=== PATIENT | female | born 1965 | race Caucasian/White ===

== ENCOUNTER 2017-06-13 09:11 | Observation (INO) | payer OTHER ==
[2017-06-13] MEDS ORDERED: BABY ASPIRIN 81 MG CHEW PO ONE (09:22)
[2017-06-13] MEDS ORDERED: Pepcid 20 MG VIAL IV ONE ×2 (09:22→09:37)
[2017-06-13] MEDS ORDERED: NITRO-BID 2% UD PACKETS TOP ONE (09:22)
[2017-06-13] MEDS ORDERED: Ativan 2 MG/1 ML VIAL IV ONE (09:25)
[2017-06-13] MEDS ORDERED: Sodium Chloride 0.9% 1000 ML 1,000 ML IV SCH (09:30)
--- NOTE | 2017-06-13 09:31 | ERPHSYRPT ---
- History of Present Illness Time Seen by Provider: 06/13/17 09:12 Historian: patient Physician History: CC: chest pain Hx: 51 y/o patient of Dr Solis with hx of DM. She has chest pain off and on since yesterday associated with shortness of breath. She took 2 baby asa this AM. She has not used NTG today but used it yesterday with some brief relief. She reports prior heart attack in 2004 and had cath. She reports angina but does not regularly see a databases software consultant. She feels upset, anxious, and short of breath. She has stress with finances and child. Symptoms severe. Timing/Duration: yesterday (about 24 hours) Severity of Pain-Max: severe Severity of Pain-Current: severe Nitro Today/Relief: no nitro taken today Aspirin Treatment Today: 81 mg x 2, provided at home Allergies/Adverse Reactions: codeine [Codeine] Allergy (Mild, Verified 09/29/16 20:51) flu vaccine 2010- *RETIRED-02/04/13 [flu vaccine [id number] (3 yr +)] Allergy ( Mild, Verified 09/29/16 20:51) pneumococcal vaccine Allergy (Verified 09/29/16 20:51) trovafloxacin [Trovafloxacin] Allergy (Verified 09/29/16 20:51) acetaminophen [From [facility]] Adverse Reaction (Verified 09/29/16 20:51) duloxetine HCl [From Cymbalta] Adverse Reaction (Verified 09/29/16 20:51) hydrocodone bitartrate [From [facility]] Adverse Reaction (Verified 06/13/17 09:47) milnacipran HCl [From [facility]] Adverse Reaction (Verified 09/29/16 20:51) Home Medications: Metformin HCl 1,000 mg PO BID 12/30/15 [History] Citalopram Hydrobromide 20 mg* [ceLEXa 20 MG] 20 mg PO DAILY 08/13/16 [ History] Meloxicam 15 mg DAILY 08/13/16 [History] Metoprolol Tartrate 25 mg [Lopressor 25MG Tab] 25 mg PO BID 08/18/16 [ History] Gabapentin [Gralise] 1 each PO Q12H PRN PRN 06/13/17 [History] Hx Tetanus, Diphtheria Vaccination/Date Given: Yes (2013) Hx Influenza Vaccination/Date Given: No Hx Pneumococcal Vaccination/Date Given: No - Review of Systems Constitutional: Weakness, No Fever, No Chills Eyes: No Symptoms Ears, Nose, & Throat: No Symptoms Respiratory: Dyspnea, No Cough Cardiac: Chest Pain, Edema, No Syncope Abdominal/Gastrointestinal: No Nausea, No Vomiting, No Diarrhea Genitourinary Symptoms: No Dysuria Skin: No Rash Neurological: No Headache All Other Systems: Reviewed and Negative - Past Medical History Pertinent Past Medical History: Yes Neurological History: Migraines, Stroke ENT History: No Pertinent History Cardiac History: Myocardial Infarction ([place]), Hypertension, Other Respiratory History: Asthma Endocrine Medical History: Diabetes Type II Musculoskeletal History: Arthritis, Osteoarthritis, Osteoporosis, Fibromyalgia GI Medical History: Hernia, GERD Psycho-Social History: Depression, Anxiety Female Reproductive Disorders: Endometriosis - Past Surgical History Past Surgical History: Yes Neuro Surgical History: No Pertinent History Cardiac: Cardiac Catheterization Respiratory: No Pertinent History Gastrointestinal: Other, Cholecystectomy Genitourinary: No Pertinent History Musculoskeletal: Orthopedic Surgery Female Surgical History: Hysterectomy, Tubal Ligation, Section Other Surgical History: LEFT ANKLE SURGERY, skin tumor posterior right arm, left index finger - Social History Smoking Status: Former smoker How long have you smoked: 30 Exposure to second hand smoke: No Alcohol Use: None Drug Use: none Patient Lives Alone: No Significant Family History: heart disease, hypertension - Female History Hx Now: No - Nursing Vital Signs Nursing Vital Signs: Initial Vital Signs Temperature 98.5 F 06/13/17 09:17 Pulse Rate 70 06/13/17 09:17 Respiratory Rate 24 06/13/17 09:17 Blood Pressure 127/57 06/13/17 09:17 O2 Sat by Pulse Oximetry 99 06/13/17 09:17 Pain Scale Pain Intensity 8 - Physical Exam General Appearance: alert, obese, other (anxious and upset) Eye Exam: PERRL/EOMI Ears, Nose, Throat Exam: normal ENT inspection, moist mucous membranes Neck Exam: normal inspection, non-tender, supple Respiratory Exam: normal breath sounds Cardiovascular Exam: regular rate/rhythm, No murmur Gastrointestinal/Abdomen Exam: soft, No tenderness, No distention Extremity Exam: normal inspection, normal range of motion Neurologic Exam: alert, oriented x 3, cooperative, sensation nml, No motor deficits Skin Exam: warm, dry, No rash - Course Nursing assessment & vital signs reviewed: Yes EKG Interpreted by Me: RATE (62), Sinus Rhythm, NORMAL AXIS, NORMAL INTERVALS ( QTc 421), NORMAL QRS, NORMAL ST-T - Radiology Exams cxr X-ray Interpretation: Teleradiologist Report, Negative Ordered Tests: Active Orders 24 hr Category Date Time Status Line Lead STAT Care 06/13/17 09:22 Active EKG-ER Only STAT Care 06/13/17 09:22 Active EKG-ER Only STAT Care 06/13/17 10:43 Active IV Insertion STAT Care 06/13/17 09:22 Active Pulse Oximetry (ED) STAT Care 06/13/17 09:22 Active CHEST 1 VIEW (PORTABLE) Stat Exams 06/13/17 09:22 Completed CBC W DIFF Stat Lab 06/13/17 09:25 Completed CMP Stat Lab 06/13/17 09:25 Completed D-DIMER QUANTITATION Stat Lab 06/13/17 09:25 Completed NT PRO BNP Stat Lab 06/13/17 09:25 Completed PROTIME WITH INR Stat Lab 06/13/17 09:25 Completed PTT Stat Lab 06/13/17 09:25 Completed TROPONIN Q3H Lab 06/13/17 09:25 Completed TROPONIN Q3H Lab 06/13/17 12:30 Ordered TROPONIN Q3H Lab 06/13/17 15:30 Ordered TROPONIN Q3H Lab 06/13/17 18:30 Ordered TROPONIN Q3H Lab 06/13/17 21:30 Ordered VENOUS BLOOD GAS Stat Lab 06/13/17 09:25 Completed Medication Summary Generic Name Dose Route Start Last Admin Trade Name Freq PRN Reason Stop Dose Admin Sodium Chloride 1,000 mls @ 50 mls/hr 06/13/17 09:30 06/13/17 09:50 Sodium Chloride 0.9% 1000 Ml IV 07/13/17 09:29 50 mls/hr .Q20H SJ Administration Discontinued Medications Generic Name Dose Route Start Last Admin Trade Name Freq PRN Reason Stop Dose Admin Aspirin 162 mg 06/13/17 09:22 06/13/17 09:51 Baby Aspirin 81 Mg Chew PO 06/13/17 09:23 162 mg STAT ONE Administration Aspirin Confirm 06/13/17 09:36 Baby Aspirin 81 Mg Chew Administered 06/13/17 09:37 Dose 162 mg .ROUTE .STK-MED ONE Famotidine 20 mg 06/13/17 09:22 06/13/17 09:50 Pepcid 20 Mg Vial IV 06/13/17 09:23 20 mg STAT ONE Administration Famotidine Confirm 06/13/17 09:37 Pepcid 20 Mg Vial Administered 06/13/17 09:38 Dose 20 mg IV .STK-MED ONE Fentanyl Citrate 50 mcg 06/13/17 10:34 Sublimaze 100 Mcg/2 Ml IV 06/13/17 10:35 STAT ONE Lorazepam 1 mg 06/13/17 09:25 06/13/17 09:50 Ativan 2 Mg/1 Ml Vial IV 06/13/17 09:26 1 mg STAT ONE Administration Lorazepam Confirm 06/13/17 09:36 Ativan 2 Mg/1 Ml Vial Administered 06/13/17 09:37 Dose 2 mg .ROUTE .STK-MED ONE Nitroglycerin 1 gm 06/13/17 09:22 06/13/17 09:51 Nitro-Bid 2% Ud Packets TOP 06/13/17 09:23 1 gm STAT ONE Administration Nitroglycerin Confirm 06/13/17 09:36 Nitro-Bid 2% Ud Packets Administered 06/13/17 09:37 Dose 1 gm .ROUTE .STK-MED ONE Lab/Rad Data: Laboratory Result Diagrams 06/13/17 09:25 06/13/17 09:25 Laboratory Results 06/13/17 06/13/17 06/13/17 Range/Units 09:25 09:25 09:25 WBC (4.0-10.5) K/mm3 RBC (4.1-5.4) M/mm3 Hgb (12.0-16.0) gm/dl Hct (35-47) % MCV (78-100) fl MCH (26-32) pg MCHC (32-36) g/dl RDW (11.5-14.0) % Plt Count (150-450) K/mm3 MPV (6-9.5) fl Gran % (36.0-66.0) % Lymphocytes % (24.0-44.0) % Monocytes % (0.0-12.0) % Eosinophils % (0.00-5.0) % Basophils % (0.0-0.4) % Basophils # (0-0.4) INR 0.89 (0.8-3.0) APTT 30.8 (25.3-37.0) SECONDS D-Dimer 332 (0-500) ng/mL VBG pH 7.49 H (7.32-7.42) VBG pCO2 at Pat Temp 30 L (42-55) mm/Hg VBG pO2 at Pat Temp 28 (25-40) mm/Hg VBG HCO3 22.9 (22-28) meq/L VBG O2 Sat (Jeniffer) 68.6 L (95-100) VBG Base Excess 0.5 (-2.0-2.0) VBG Hemoglobin 14.2 VBG Carboxyhemoglobin 1.6 (0.0-6.9) % T HGB POC Potassium 4.1 (3.5-5.1) Sodium (136-145) mEq/L Potassium (3.5-5.1) mEq/L Chloride (98-107) mEq/L Carbon Dioxide (21-32) mEq/L Anion Gap (5-15) MEQ/L BUN (9-20) mg/dL Creatinine (0.55-1.30) mg/dl Estimated GFR ML/MIN Glucose (70-110) MG/DL Calcium (8.5-10.1) mg/dL Total Bilirubin (0.2-1.0) mg/dL AST (15-37) U/L ALT (12-78) U/L Alkaline Phosphatase (46-116) U/L Troponin I < 0.017 (0.000-0.056) ng/ml NT-Pro-B Natriuret Pep (0-125) pg/ml Serum Total Protein (6.4-8.2) gm/dL Albumin (3.4-5.0) g/dL 06/13/17 06/13/17 Range/Units 09:25 09:25 WBC 7.2 (4.0-10.5) K/mm3 RBC 4.48 (4.1-5.4) M/mm3 Hgb 13.3 (12.0-16.0) gm/dl Hct 40.4 (35-47) % MCV 90.2 (78-100) fl MCH 29.7 (26-32) pg MCHC 32.9 (32-36) g/dl RDW 14.6 H (11.5-14.0) % Plt Count 271 (150-450) K/mm3 MPV 9.0 (6-9.5) fl Gran % 53.6 (36.0-66.0) % Lymphocytes % 36.7 (24.0-44.0) % Monocytes % 7.9 (0.0-12.0) % Eosinophils % 1.4 (0.00-5.0) % Basophils % 0.4 (0.0-0.4) % Basophils # 0.03 (0-0.4) INR (0.8-3.0) APTT (25.3-37.0) SECONDS D-Dimer (0-500) ng/mL VBG pH (7.32-7.42) VBG pCO2 at Pat Temp (42-55) mm/Hg VBG pO2 at Pat Temp (25-40) mm/Hg VBG HCO3 (22-28) meq/L VBG O2 Sat (Jeniffer) (95-100) VBG Base Excess (-2.0-2.0) VBG Hemoglobin VBG Carboxyhemoglobin (0.0-6.9) % T HGB POC Potassium (3.5-5.1) Sodium 137 (136-145) mEq/L Potassium 4.2 (3.5-5.1) mEq/L Chloride 102 (98-107) mEq/L Carbon Dioxide 23.3 (21-32) mEq/L Anion Gap 15.4 H (5-15) MEQ/L BUN 25 H (9-20) mg/dL Creatinine 0.73 (0.55-1.30) mg/dl Estimated GFR > 60 ML/MIN Glucose 174 H (70-110) MG/DL Calcium 9.3 (8.5-10.1) mg/dL Total Bilirubin 0.80 (0.2-1.0) mg/dL AST 33 (15-37) U/L ALT 70 (12-78) U/L Alkaline Phosphatase 101 (46-116) U/L Troponin I (0.000-0.056) ng/ml NT-Pro-B Natriuret Pep 74 (0-125) pg/ml Serum Total Protein 7.5 (6.4-8.2) gm/dL Albumin 3.6 (3.4-5.0) g/dL - Progress Progress Note: 06/13/17 09:31 echo one year ago showed minimal valvular problem, normal EF and no wall motion abnl. 06/13/17 10:35 Pt stable. Pain better, then worse. Tests reassuring. She has seen [facility] at [facility] in the past. Advised chest pain observation. Paged Dr Mariee ( oc). 06/13/17 10:[address] Mariee and will place in tele observation for chest pain serial troponins. Discussed with .: Kodi Will see patient in: hospital (observation) Counseled pt/family regarding: lab results, diagnosis, need for follow-up, rad results - Departure Time of Disposition: 10:44 Departure Disposition: Observation (Tele) Clinical Impression: Chest pain, rule out acute myocardial infarction, Diabetes Condition: Fair Critical Care Time: No Referrals: JOHN SOLIS [Primary Care Provider] -
[2017-06-13] MEDS ORDERED: Ativan 2 MG/1 ML VIAL ONE (09:36)
[2017-06-13] MEDS ORDERED: NITRO-BID 2% UD PACKETS ONE (09:36)
[2017-06-13] MEDS ORDERED: BABY ASPIRIN 81 MG CHEW ONE (09:36)
[2017-06-13 09:38] LABS: BASOPHIL % 0.4 % (0.0-0.4); Eosinophil % 1.4 % (0.00-5.0); Granulocytes % 53.6 % (36.0-66.0); Lymphocytes % 36.7 % (24.0-44.0); Mean Cell Volume 90.2 fl (78-100); Mean Corpuscular Hemoglobin 29.7 pg (26-32); Monocytes % 7.9 % (0.0-12.0); Platelet Count 271 K/mm3 (150-450); Red Blood Count 4.48 M/mm3 (4.1-5.4); Red Cell Distribution Width 14.6 % (11.5-14.0); White Blood Count 7.2 K/mm3 (4.0-10.5)
[2017-06-13 09:43] LABS: VBG BASE EXCESS 0.5 (-2.0-2.0); VBG CARBOXYHEMOGLOBIN 1.6 % T HGB (0.0-6.9); VBG HCO3- 22.9 meq/L (22-28); VBG HEMOGLOBIN 14.2; VBG O2 SATURATION 68.6 (95-100); VBG POTASSIUM 4.1 (3.5-5.1); VBG pH 7.49 (7.32-7.42)
--- NOTE | 2017-06-13 09:45 | XRAY ---
Indication: Chest pain. Comparison: May 20, 2016. Portable chest again demonstrates normal heart and lungs. Bony thorax intact again with spinal degenerative changes. There is now a old left clavicle fracture.
[2017-06-13 09:59] LABS: INR 0.89 (0.8-3.0)
[2017-06-13 10:02] LABS: PTT 30.8 SECONDS (25.3-37.0)
[2017-06-13 10:15] LABS: ALBUMIN 3.6 g/dL (3.4-5.0); ALKALINE PHOSPHATASE 101 U/L (46-116); ANION GAP 15.4 MEQ/L (5-15); BLOOD UREA NITROGEN 25 mg/dL (9-20); CHLORIDE 102 mEq/L (98-107); Carbon Dioxide 23.3 mEq/L (21-32); Glucose 174 MG/DL (70-110); Potassium 4.2 mEq/L (3.5-5.1); SGOT/AST 33 U/L (15-37); SGPT/ALT 70 U/L (12-78); SODIUM 137 mEq/L (136-145); Total Protein 7.5 gm/dL (6.4-8.2)
[2017-06-13] MEDS ORDERED: SUBLIMAZE 100 MCG/2 ML IV ONE (10:34)
[2017-06-13] MEDS ORDERED: SUBLIMAZE 100 MCG/2 ML ONE (10:45)
[2017-06-13] MEDS ORDERED: MAALOX ES 30 ML UNIT DOSE PO PRN (11:48)
[2017-06-13] MEDS ORDERED: Zofran 4 MG/2 ML VIAL IV PRN (11:48)
[2017-06-13] MEDS ORDERED: Senokot-S Tablet PO PRN (11:48)
[2017-06-13] MEDS ORDERED: MILK OF MAGNESIA 30 ML PO PRN (11:48)
[2017-06-13] MEDS ORDERED: NovoLOG Insulin SQ PRN (11:48)
[2017-06-13] MEDS ORDERED: Sodium Chloride 0.9% 500 ML 500 ML IV SCH (11:48)
[2017-06-13] MEDS: TYLENOL 325 MG PO PRN ×2 (13:46→19:45)
[2017-06-13] MEDS: NITRO-BID 2% UD PACKETS TOP SCH ×2 (13:52→22:38)
[2017-06-13] MEDS ORDERED: ceLEXa 20 MG PO SCH (16:00)
[2017-06-13] MEDS ORDERED: ENOXAPARIN SODIUM SQ SCH (16:00)
[2017-06-13] MEDS ORDERED: Mobic 7.5 MG PO SCH (16:00)
[2017-06-13] MEDS: ULTRAM 50 MG PO PRN (16:23)
[2017-06-13] MEDS ORDERED: ECOTRIN 81 MG PO SCH (22:00)
[2017-06-13] MEDS ORDERED: Lopressor 25MG Tab PO SCH (22:00)
[2017-06-13] MEDS ORDERED: Zanaflex 4 MG PO SCH (22:00)
[2017-06-13] MEDS ORDERED: Pepcid 20 MG PO SCH (22:00)
[2017-06-13] MEDS: NEURONTIN 300 MG PO SCH (22:37)
[2017-06-14] MEDS: NEURONTIN 300 MG PO SCH (01:03)
[2017-06-14] MEDS: ULTRAM 50 MG PO PRN (04:24)
[2017-06-14] MEDS: NITRO-BID 2% UD PACKETS TOP SCH (06:13)
[2017-06-14 08:08] VITALS: BP 110/58; PULSE 66; O2SAT 96
--- NOTE | 2017-06-14 08:38 | PCM.DCORD ---
- Discharge Discharge Date: 06/14/17 Disposition: Home, Self-Care Condition: Good Prescriptions: Continue Metformin HCl 1,000 mg PO BID Meloxicam 15 mg DAILY Citalopram Hydrobromide 20 mg* [ceLEXa 20 MG] 20 mg PO DAILY Metoprolol Tartrate 25 mg [Lopressor 25MG Tab] 25 mg PO BID Aspirin EC 81 mg [Ecotrin 81 mg] 81 mg PO BID Gabapentin 900 mg PO HS Tizanidine HCl 4 mg [Zanaflex 4 MG] 1.5 tab PO HS Follow up with: JOHN RAMIREZ [Primary Care Provider] - Forms: Patient Portal Information
--- NOTE | 2017-06-14 09:35 | XRAY ---
Indication: Chest pain. Rule out aneurysm. Conventional CTA chest performed using 80 cc Isovue 370 contrast. Two-dimensional sagittal and coronal reformatted images obtained. Additional 3-dimensional reformatted images of the aorta performed using a separate workstation. Comparison: CT PE study August 16, 2015. Aorta is again normal in course and caliber without aneurysm/dissection. Heart is not enlarged and no pericardial effusion. No pathologic mediastinal/hilar lymphadenopathy. Examination of the lung parenchyma remains clear. Bony thorax intact with again minimal degenerative changes throughout the spine. Limited upper abdomen demonstrates stable fatty liver. Impression: 1. Negative for aortic aneurysm/dissection. 2. No new/acute cardiopulmonary abnormalities. 3. Stable fatty liver. CTDI 28.68
[2017-06-14] MEDS ORDERED: Ecotrin 325 MG PO SCH (10:00)
--- NOTE | 2017-06-14 14:49 | SSS ---
DISCHARGE DIAGNOSES: 1) CHEST PAIN. 2) DIABETES MELLITUS TYPE 2. 3) MORBID OBESITY. HISTORY OF PRESENT ILLNESS: The patient is a 51 year-old white female who presented herself to the emergency room having episodes of chest pain that were severe in nature rating up to a 10 on a scale 1 to 10. She reports it mostly in the left sternal border and radiating to the left arm and shoulder. The patient has carton inspector at [facility] that she sees in [facility]. She reports that he has done stress treadmill with Cardiolite which has been negative. She had negative echocardiogram and these have been done fairly recently. She also several years ago had a heart cath which was also negative. The patient was admitted from the emergency room for chest pain to rule out myocardial infarction. HOSPITAL COURSE: During the patient's hospital day she initially had pain which resolved over time. We did check also CT scan although the D-dimer was negative to rule out pulmonary embolism, dissecting aneurysm and these were negative as well. We did sedimentation rate for C-reactive protein which were normal. We had a lipid panel which showed her LDL cholesterol to be at 100, HDL at 40. C-reactive protein was 5.19. Troponins have all be less than 0.017. By the morning of 06/14/2017, the patient was feeling better other than complaints of headache and having ruled out for myocardial infarction the patient was felt to be ready for discharge home. She was discharged home with instructions to follow up with her carton inspector in the next week and to call her primary care doctor as well for further evaluation and management. She is to continue to take her usual home medications which include Pepcid 20 mg a day, Neurontin 300 mg tablets with 900 mg at night. She takes NovoLog insulin and Mobic 7.5 mg daily. Glucophage she is to hold due to contrast for two days. Lopressor 25 mg daily, Nitro-Bid packets, Zanaflex 4 mg, Ultram 50 mg every four hours PRN, aspirin 81 mg a day.
[2017-06-15] MEDS ORDERED: Glucophage 500 MG PO SCH (17:00)
== END 2017-06-14 10:10 | disposition home or self-care (01) ==
LOC: ED 09:11 → MED SURG 11:23
PROVIDERS: ADMIT Family Medicine; ATTEND Family Medicine
DX: R07.9 Chest pain, unspecified (principal); E11.9 Type 2 diabetes mellitus without complications; E66.01 Morbid (severe) obesity due to excess calories
CPT/HCPCS: 36000; 36415; 71010; 71275; 80053; 80061; 82805; 82962; 83721; 83880; 84484; 85025; 85379; 85610; 85652; 85730; 86140; 93005; 93041; 93268; 96360; 99284; G0378; J1650; J2060; J3010; A9270-GY

== ENCOUNTER 2017-07-08 07:57 | Emergency (ER) | payer OTHER ==
--- NOTE | 2017-07-08 08:43 | ERPHSYRPT ---
- History of Present Illness Time Seen by Provider: 07/08/17 08:33 Source: patient Exam Limitations: no limitations Patient Subjective Stated Complaint: pt here for sob for over a month now,cough nonproductive, fever low grade,left ear and throat pain at times Triage Nursing Assessment: pt alert, resp easy, shallow,no edema noted, skin w/ d pink ,chest clear Physician History: The patient is a morbidly obese 51-year-old female who presents with the complaint of shortness of breath for more than a month. She states she also has a dry cough. This shortness of breath is worsened by walking. She also has left ear pain for a month. She was seen in this ER and admitted to this hospital on June 13 for chest pain. I have scanned the hospital note. She states that she had shortness of breath a few days before being admitted for chest pain. While in this hospital, she had a CT scan to rule out PE. Her d- dimer was negative at the time. Her troponin levels were all negative. Her chest pain had resolved at discharge. She was to have seen her hot bread baker at [facility] within a week after discharge but did not see him because she knew it wasn't her heart that was an issue. She did see her local doctor for chest pain but "nothing was done". She has taken nebulizer treatments at home without improvement or with very little improvement. Her past medical history is significant for chest pain, hypertension, "touch of asthma", diabetes, and GERD. Timing/Duration: other (more than one month) Activities at Onset: none Severity of Dyspnea-Max: moderate Severity of Dyspnea-Current: moderate Possible Cause: occasional episodes Modifying Factors: Improves With: exertion Associated Symptoms: cough, dizziness Allergies/Adverse Reactions: codeine [Codeine] Allergy (Mild, Verified 07/08/17 08:12) flu vaccine 2010- *RETIRED-02/04/13 [flu vaccine 0856-6009 (3 yr +)] Allergy ( Mild, Verified 07/08/17 08:12) pneumococcal vaccine Allergy (Verified 07/08/17 08:12) trovafloxacin [Trovafloxacin] Allergy (Verified 07/08/17 08:12) acetaminophen [From [place]] Adverse Reaction (Verified 07/08/17 08:12) duloxetine HCl [From [place]ymb[place]] Adverse Reaction (Verified 07/08/17 08:12) hydrocodone bitartrate [From [place]] Adverse Reaction (Verified 07/08/17 08:12) milnacipran HCl [From [place]] Adverse Reaction (Verified 07/08/17 08:12) Home Medications: Metformin HCl 1,000 mg PO BID 12/30/15 [History] Citalopram Hydrobromide 20 mg* [ceLEXa 20 MG] 20 mg PO DAILY 08/13/16 [ History] Meloxicam 15 mg DAILY 08/13/16 [History] Metoprolol Tartrate 25 mg [Lopressor 25MG Tab] 25 mg PO BID 08/18/16 [ History] Aspirin EC 81 mg [Ecotrin 81 mg] 81 mg PO BID 06/13/17 [History] Gabapentin 900 mg PO HS 06/13/17 [History] Tizanidine HCl 4 mg [Zanaflex 4 MG] 1.5 tab PO HS 06/13/17 [History] Albuterol 2.5 mg/3 ml Neb [Proventil 2.5 mg/3 ml Neb] 2.5 mg QID 07/08/17 [History] Hx Tetanus, Diphtheria Vaccination/Date Given: Yes (2013) Hx Influenza Vaccination/Date Given: No Hx Pneumococcal Vaccination/Date Given: No Immunizations Up to Date: Yes - Review of Systems Constitutional: No Fever, No Chills Eyes: No Symptoms Ears, Nose, & Throat: Ear Pain Respiratory: Cough, Dyspnea on Exertion ([place]) Cardiac: No Chest Pain, No Edema, No Syncope Abdominal/Gastrointestinal: No Abdominal Pain, No Nausea, No Vomiting, No Diarrhea Genitourinary Symptoms: No Dysuria Musculoskeletal: No Back Pain, No Neck Pain Skin: No Rash Neurological: No Dizziness, No Focal Weakness, No Sensory Changes Psychological: No Symptoms Endocrine: No Symptoms Hematologic/Lymphatic: No Symptoms Immunological/Allergic: No Symptoms All Other Systems: Reviewed and Negative - Past Medical History Pertinent Past Medical History: Yes Neurological History: Migraines, Stroke ENT History: No Pertinent History Cardiac History: Myocardial Infarction (PR), Hypertension, Other Respiratory History: Asthma Endocrine Medical History: Diabetes Type II Musculoskeletal History: Arthritis, Osteoarthritis, Osteoporosis, Fibromyalgia GI Medical History: Hernia, GERD Psycho-Social History: Depression, Anxiety Female Reproductive Disorders: Endometriosis - Past Surgical History Past Surgical History: Yes Neuro Surgical History: No Pertinent History Cardiac: Cardiac Catheterization Respiratory: No Pertinent History Gastrointestinal: Other, Cholecystectomy Genitourinary: No Pertinent History Musculoskeletal: Orthopedic Surgery Female Surgical History: Hysterectomy, Tubal Ligation, Section Other Surgical History: LEFT ANKLE SURGERY, skin tumor posterior right arm, left index finger - Social History Smoking Status: Former smoker How long have you smoked: 30 Exposure to second hand smoke: No Alcohol Use: None Drug Use: none Patient Lives Alone: No Significant Family History: heart disease, hypertension - Female History Hx Last Menstrual Period: hyster Hx Now: No - Nursing Vital Signs Nursing Vital Signs: Initial Vital Signs Temperature 97.7 F 07/08/17 08:02 Pulse Rate 69 07/08/17 08:02 Respiratory Rate 28 H 07/08/17 08:02 Blood Pressure 187/116 07/08/17 08:02 O2 Sat by Pulse Oximetry 99 07/08/17 08:02 Pain Scale Pain Intensity 0 - Physical Exam General Appearance: no apparent distress, alert Eye Exam: PERRL/EOMI Ears, Nose, Throat Exam: abnormal TM (L) (tenderness of left ear canal, TM dull) Neck Exam: tenderness lateral (left) Respiratory Exam: normal breath sounds, No wheezing Cardiovascular/Chest Exam: normal heart sounds, regular rate/rhythm Abdominal/Gastrointestinal Exam: other (obese) Rectal Exam: not done Extremity Exam: non-tender, normal range of motion, normal inspection, no calf tenderness, no pedal edema, No pedal edema Neurologic Exam: alert, oriented x 3, cooperative, injection molding machine setter II-XII nml as tested, sensation nml, No motor deficits Skin Exam: normal color, warm, No dry SpO2 Interpretation: normal SpO2: 97 - Radiology Exams Chest X-ray Interpretation: Other (New interstial edema per Dr Rodriguez) - CT Exams Chest CT Interpretation: Other (No PE. New tiny bilateral pleural effusion and minimal interstial edema per Dr Ferrara.) Ordered Tests: Active Orders 24 hr Category Date Time Status Aircraft Time Clerk STAT Care 07/08/17 10:22 Active IV Insertion STAT Care 07/08/17 08:44 Active Oxygen-ED Only NASAL CANNULA 2 lpm Care 07/08/17 10:21 Active Pulse Oximetry (ED) STAT Care 07/08/17 08:44 Active CHEST 2 VIEWS (PA AND LAT) Stat Exams 07/08/17 08:45 Completed CHEST WITH CONTRAST [CT] Stat Exams 07/08/17 10:18 Completed CBC W DIFF Stat Lab 07/08/17 08:45 Completed CMP Stat Lab 07/08/17 08:45 Completed D-DIMER QUANTITATION Stat Lab 07/08/17 08:45 Completed NT PRO BNP Stat Lab 07/08/17 08:45 Completed TROPONIN Q3H Lab 07/08/17 08:45 Completed TROPONIN Q3H Lab 07/08/17 11:47 Completed TROPONIN Q3H Lab 07/08/17 14:45 Ordered TROPONIN Q3H Lab 07/08/17 17:45 Ordered TROPONIN Q3H Lab 07/08/17 20:45 Ordered Respiratory Nebulizer STAT RT 07/08/17 08:47 Completed Medication Summary Discontinued Medications Generic Name Dose Route Start Last Admin Trade Name Freq PRN Reason Stop Dose Admin Albuterol/Ipratropium 3 ml 07/08/17 08:44 07/08/17 09:08 Duoneb 0.5-3 Mg/3 Ml Neb IH 07/08/17 08:45 3 ml STAT ONE Administration Albuterol/Ipratropium Confirm 07/08/17 09:05 Duoneb 0.5-3 Mg/3 Ml Neb Administered 07/08/17 09:06 Dose 3 ml IH .STK-MED ONE Furosemide 40 mg 07/08/17 11:51 07/08/17 12:07 Lasix 40 Mg/4 Ml IV 07/08/17 11:52 40 mg STAT ONE Administration Furosemide Confirm 07/08/17 12:06 Lasix 40 Mg/4 Ml Administered 07/08/17 12:07 Dose 40 mg .ROUTE .STK-MED ONE Methylprednisolone Sodium Succinate 125 mg 07/08/17 08:44 07/08/17 09:00 Solu-Medrol 125 Mg IV 07/08/17 08:45 125 mg STAT ONE Administration Methylprednisolone Sodium Succinate Confirm 07/08/17 08:59 Solu-Medrol 125 Mg Administered 07/08/17 09:00 Dose 125 mg .ROUTE .STK-MED ONE Lab/Rad Data: Laboratory Result Diagrams 07/08/17 08:45 07/08/17 08:45 Laboratory Results 07/08/17 07/08/1707/08/17 Range/Units 11:47 08:45 08:45 WBC (4.0-10.5) K/mm3 RBC (4.1-5.4) M/mm3 Hgb (12.0-16.0) gm/dl Hct (35-47) % MCV (78-100) fl MCH (26-32) pg MCHC (32-36) g/dl RDW (11.5-14.0) % Plt Count (150-450) K/mm3 MPV (6-9.5) fl Gran % (36.0-66.0) % Lymphocytes % (24.0-44.0) % Monocytes % (0.0-12.0) % Eosinophils % (0.00-5.0) % Basophils % (0.0-0.4) % Basophils # (0-0.4) D-Dimer (0-500) ng/mL Sodium 142 (136-145) mEq/L Potassium 4.4 (3.5-5.1) mEq/L Chloride 106 (98-107) mEq/L Carbon Dioxide 25.1 (21-32) mEq/L Anion Gap 15.0 (5-15) MEQ/L BUN 17 (9-20) mg/dL Creatinine 0.54 L (0.55-1.30) mg/dl Estimated GFR > 60 ML/MIN Glucose 131 H (70-110) MG/DL Calcium 9.1 (8.5-10.1) mg/dL Total Bilirubin 0.80 (0.2-1.0) mg/dL AST 21 (15-37) U/L ALT 62 (12-78) U/L Alkaline Phosphatase 98 (46-116) U/L Troponin I < 0.017 < 0.017 (0.000-0.056) ng/ml NT-Pro-B Natriuret Pep (0-125) pg/ml Serum Total Protein 7.4 (6.4-8.2) gm/dL Albumin 3.2 L (3.4-5.0) g/dL 07/08/17 07/08/17 07/08/17 Range/Units 08:45 08:45 08:45 WBC 8.2 (4.0-10.5) K/mm3 RBC 3.99 L (4.1-5.4) M/mm3 Hgb 12.0 (12.0-16.0) gm/dl Hct 37.0 (35-47) % MCV 92.7 (78-100) fl MCH 30.0 (26-32) pg MCHC 32.4 (32-36) g/dl RDW 14.9 H (11.5-14.0) % Plt Count 269 (150-450) K/mm3 MPV 9.5 (6-9.5) fl Gran % 63.6 (36.0-66.0) % Lymphocytes % 27.2 (24.0-44.0) % Monocytes % 7.2 (0.0-12.0) % Eosinophils % 1.6 (0.00-5.0) % Basophils % 0.4 (0.0-0.4) % Basophils # 0.03 (0-0.4) D-Dimer 1156 H* (0-500) ng/mL Sodium (136-145) mEq/L Potassium (3.5-5.1) mEq/L Chloride (98-107) mEq/L Carbon Dioxide (21-32) mEq/L Anion Gap (5-15) MEQ/L BUN (9-20) mg/dL Creatinine (0.55-1.30) mg/dl Estimated GFR ML/MIN Glucose (70-110) MG/DL Calcium (8.5-10.1) mg/dL Total Bilirubin (0.2-1.0) mg/dL AST (15-37) U/L ALT (12-78) U/L Alkaline Phosphatase (46-116) U/L Troponin I (0.000-0.056) ng/ml NT-Pro-B Natriuret Pep 506 H (0-125) pg/ml Serum Total Protein (6.4-8.2) gm/dL Albumin (3.4-5.0) g/dL - Progress Progress: improved Air Movement: good Progress Note: 07/08/17 12:53 The patient was given a DuoNeb treatment and Solu-Medrol 125 mg by IV without improvement. After the CT scan for PE for a elevated d-dimer, the CT scan showed pulmonary vascular congestion with small bilateral pleural effusions. The patient was then given Lasix 40 mg by IV. The patient was quickly diuresing. She now is feeling much better. She is breathing much better. Blood Culture(s) Obtained: No Antibiotics given: No Counseled pt/family regarding: lab results, diagnosis, need for follow-up, rad results - Departure Time of Disposition: 12:54 Departure Disposition: Home Clinical Impression: Pulmonary vascular congestion Condition: Stable Critical Care Time: No Referrals: JOHN RAMIREZ [Primary Care Provider] - Additional Instructions: You have pulmonary vascular congestion. You were given a DuoNeb treatment, Solu -Medrol 125 mg by IV, and furosemide 40 mg by IV in the ER. Continue to take furosemide 20 mg twice a day for 3 days. Follow-up in one to 2 days with your primary care physician. The chest CT scan did not show any blood clots in your lungs. Prescriptions: Furosemide 20 mg [Lasix 20 mg] 20 mg PO BID #6 tablet
[2017-07-08] MEDS ORDERED: solu-MEDROL 125 MG IV ONE (08:44)
[2017-07-08] MEDS ORDERED: DUONEB 0.5-3 MG/3 ml Neb IH ONE ×2 (08:44→09:05)
[2017-07-08 08:59] LABS: BASOPHIL % 0.4 % (0.0-0.4); Eosinophil % 1.6 % (0.00-5.0); Granulocytes % 63.6 % (36.0-66.0); Lymphocytes % 27.2 % (24.0-44.0); Mean Cell Volume 92.7 fl (78-100); Mean Platelet Volume 9.5 fl (6-9.5); Monocytes % 7.2 % (0.0-12.0); Platelet Count 269 K/mm3 (150-450); Red Blood Count 3.99 M/mm3 (4.1-5.4); Red Cell Distribution Width 14.9 % (11.5-14.0); White Blood Count 8.2 K/mm3 (4.0-10.5)
[2017-07-08] MEDS ORDERED: solu-MEDROL 125 MG ONE (08:59)
--- NOTE | 2017-07-08 09:11 | XRAY ---
Indication: Dyspnea. Comparison: June 13, 2017. PA/lateral chest again hyperinflated with now mild interstitial edema greatest near the lung bases. No consolidation or large effusion. Heart is not enlarged. Bony thorax intact again with mild degenerative changes. Impression: New interstitial edema without cardiomegaly.
[2017-07-08 10:12] LABS: ALBUMIN 3.2 g/dL (3.4-5.0); ALKALINE PHOSPHATASE 98 U/L (46-116); BLOOD UREA NITROGEN 17 mg/dL (9-20); CHLORIDE 106 mEq/L (98-107); Carbon Dioxide 25.1 mEq/L (21-32); Glucose 131 MG/DL (70-110); Potassium 4.4 mEq/L (3.5-5.1); SGOT/AST 21 U/L (15-37); SGPT/ALT 62 U/L (12-78); SODIUM 142 mEq/L (136-145); Total Protein 7.4 gm/dL (6.4-8.2)
--- NOTE | 2017-07-08 11:37 | XRAY ---
Indication: Short of breath. Elevated d-dimer. Multiple contiguous axial images obtained through the chest using 80 cc Isovue 370 contrast. Comparison: June 13, 2017. There is adequate opacification of the pulmonary arteries. No filling defect or pulmonary embolus. Heart is not enlarged. Aorta is normal in course and caliber. No pathologic mediastinal/hilar lymphadenopathy. Examination of the lung parenchyma now demonstrates tiny bilateral effusions with minimal interstitial edema greatest near the lung bases. No pulmonary mass or infiltrate. Bony thorax intact again with minimal degenerative changes throughout the spine. Limited upper abdomen demonstrates stable fatty liver. Impression: 1. Negative pulmonary embolus. 2. New tiny bilateral effusions and minimal interstitial edema without cardiomegaly. CTDI 23.69
[2017-07-08] MEDS ORDERED: Lasix 40 MG/4 ML IV ONE (11:51)
[2017-07-08] MEDS ORDERED: Lasix 40 MG/4 ML ONE (12:06)
[2017-07-08 13:16] VITALS: BP 123/78; PULSE 78; O2SAT 98
== END 2017-07-08 13:17 | disposition home or self-care (01) ==
LOC: ED 07:57
DX: R09.89 Other specified symptoms and signs involving the circulatory and respiratory systems (principal); R07.89 Other chest pain; I10 Essential (primary) hypertension; E11.9 Type 2 diabetes mellitus without complications; K21.9 Gastro-esophageal reflux disease without esophagitis; Z79.899 Other long term (current) drug therapy; I25.2 Old myocardial infarction
CPT/HCPCS: 36000; 36415; 71020; 71260; 80053; 83880; 84484; 85025; 85379; 93041; 94640; 96374; 96375; 99284; J1940; J2930; A9270-GY

== ENCOUNTER 2018-08-24 18:23 | Emergency (ER) | payer OTHER ==
--- NOTE | 2018-08-24 19:12 | ERPHSYRPT ---
- History of Present Illness Time Seen by Provider: 08/24/18 18:45 Source: patient Exam Limitations: clinical condition Patient Subjective Stated Complaint: pr here for left ear for 2 1/2 weeks, was given drops and states ear is not better Triage Nursing Assessment: pt alert, resp easy, skin w/d/p, no drainage from ear , Physician History: PATIENT WITH A HISTORY OF TYPE 2 DIABETES, ASTHMA AND HYPERTENSION COMPLAINS OF A LEFT EARACHE X 2 WEEKS PROGRESSIVELY WORSE, NOW HAS PAIN BELOW HIS LEFT EAR. DENIES FEVER, CHILLS, SORETHROAT, DRAINAGE FOR EAR, DIFFICULTY SWALLOWING OR BREATHING. Timing/Duration: abrupt onset Severity: moderate ENT Location: ear (L) Prearrival Treatment: prescription meds Modifying Factors: Improves With: nothing Associated Symptoms: facial pain/swelling Allergies/Adverse Reactions: codeine [Codeine] Allergy (Mild, Verified 08/24/18 18:35) flu vaccine 2010- *RETIRED-02/04/13 [flu vaccine [id number] (3 yr +)] Allergy ( Mild, Verified 08/24/18 18:35) pneumococcal vaccine Allergy (Verified 08/24/18 18:35) trovafloxacin [Trovafloxacin] Allergy (Verified 08/24/18 18:35) acetaminophen [From [place]] Adverse Reaction (Verified 08/24/18 18:35) duloxetine HCl [From Cymbalta] Adverse Reaction (Verified 08/24/18 18:35) hydrocodone bitartrate [From [place]] Adverse Reaction (Verified 08/24/18 18:35) milnacipran HCl [From [place]] Adverse Reaction (Verified 08/24/18 18:35) Home Medications: Metformin HCl 1,000 mg PO BID 12/30/15 [History] Citalopram Hydrobromide 20 mg* [ceLEXa 20 MG] 20 mg PO DAILY 08/13/16 [ History] Metoprolol Tartrate 25 mg [Lopressor 25MG Tab] 25 mg PO BID 08/18/16 [ History] Aspirin EC 81 mg [Ecotrin 81 mg] 81 mg PO BID 06/13/17 [History] Gabapentin 900 mg PO HS 06/13/17 [History] Albuterol 2.5 mg/3 ml Neb [Proventil 2.5 mg/3 ml Neb] 2.5 mg QID 07/08/17 [History] Hx Tetanus, Diphtheria Vaccination/Date Given: Yes (2013) Hx Influenza Vaccination/Date Given: No Hx Pneumococcal Vaccination/Date Given: No Immunizations Up to Date: Yes - Review of Systems Constitutional: No Fever, No Chills Eyes: No Symptoms Ears, Nose, & Throat: Ear Pain, Other (FACIAL PAIN) Respiratory: No Symptoms, No Cough, No Dyspnea Cardiac: No Chest Pain, No Edema, No Syncope Abdominal/Gastrointestinal: No Symptoms, No Abdominal Pain, No Nausea, No Vomiting, No Diarrhea Genitourinary Symptoms: No Symptoms, No Dysuria Musculoskeletal: No Back Pain, No Neck Pain Skin: No Rash Neurological: No Dizziness, No Focal Weakness, No Sensory Changes Psychological: No Symptoms Endocrine: No Symptoms All Other Systems: Reviewed and Negative - Past Medical History Pertinent Past Medical History: Yes Neurological History: Migraines, Stroke ENT History: No Pertinent History Cardiac History: Myocardial Infarction ([place]), Hypertension, Other Respiratory History: Asthma Endocrine Medical History: Diabetes Type II Musculoskeletal History: Arthritis, Osteoarthritis, Osteoporosis, Fibromyalgia GI Medical History: Hernia, GERD Psycho-Social History: Depression, Anxiety Female Reproductive Disorders: Endometriosis - Past Surgical History Past Surgical History: Yes Neuro Surgical History: No Pertinent History Cardiac: Cardiac Catheterization Respiratory: No Pertinent History Gastrointestinal: Other, Cholecystectomy Genitourinary: No Pertinent History Musculoskeletal: Orthopedic Surgery Female Surgical History: Hysterectomy, Tubal Ligation, Section Other Surgical History: LEFT ANKLE SURGERY, skin tumor posterior right arm, left index finger - Social History Smoking Status: Never smoker How long have you smoked: 30 Exposure to second hand smoke: No Alcohol Use: None Drug Use: none Patient Lives Alone: No Significant Family History: heart disease, hypertension - Female History Hx Last Menstrual Period: post Hx Now: No - Nursing Vital Signs Nursing Vital Signs: Initial Vital Signs Temperature 98.5 F 08/24/18 18:28 Pulse Rate 60 08/24/18 18:28 Respiratory Rate 16 08/24/18 18:28 Blood Pressure 189/84 08/24/18 18:28 O2 Sat by Pulse Oximetry 96 08/24/18 18:28 Pain Scale Pain Intensity 8 - Physical Exam General Appearance: no apparent distress Eye Exam: bilateral eye: normal inspection, PERRL, EOMI Ear Exam: right ear: auricle normal, canal normal, left ear: other (LEFT CANAL SWELLING WITH ERYTHRMA), bilateral ear: TM normal Throat Exam: normal, pharynx normal Neck Exam: normal inspection, lymphadenopathy (R), lymphadenopathy (L) ( TENDERNESS LEFT PRE,POST AND INFERIOR AURICULAR NODES) Cardiovascular/Respiratory Exam: chest non-tender, normal breath sounds Skin Exam: normal color SpO2 Interpretation: normal SpO2: 96 - CT Exams Soft Tissue Neck CT Interpretation: Tele-radiologist Report (NORMAL PAROTID AND SUBMANDIBULAR NODES, NORMAL RETROPHARYNGEAL SPACE, NO TONSILLAR ENLARGEMENT, NO PERITONSILLAR ABSCESS) Ordered Tests: Active Orders 24 hr Category Date Time Status IV Insertion STAT Care 08/24/18 19:12 Active NECK WITH CONTRAST [CT] Stat Exams 08/24/18 19:14 Taken BLOOD CULTURE Stat Lab 08/24/18 19:45 Received BMP Stat Lab 08/24/18 19:35 Completed CBC W DIFF Stat Lab 08/24/18 19:35 Completed Medication Summary Generic Name Dose Route Start Last Admin Trade Name Freq PRN Reason Stop Dose Admin Sodium Chloride 1,000 mls @ 100 mls/hr 08/24/18 19:15 08/24/18 19:47 Sodium Chloride 0.9% 1000 Ml IV 09/23/18 19:14 100 mls/hr .Q10H SJ Administration Discontinued Medications Generic Name Dose Route Start Last Admin Trade Name Freq PRN Reason Stop Dose Admin Fentanyl Citrate 100 mcg 08/24/18 21:13 08/24/18 21:34 Sublimaze 100 Mcg/2 Ml IV 08/24/18 21:14 100 mcg STAT ONE Administration Fentanyl Citrate Confirm 08/24/18 21:23 Sublimaze 100 Mcg/2 Ml Administered 08/24/18 21:24 Dose 100 mcg .ROUTE .STK-MED ONE Piperacillin Sod/Tazobactam Sod 3.375 gm in 100 mls @ 200 mls/hr 08/24/18 19: 13 08/24/18 19:47 Zosyn 3.375gm/100 Ml D5w IV 08/24/18 19:42 200 ml/hr STAT STA 200 mls/hr Administration Piperacillin Sod/Tazobactam Sod Confirm 08/24/18 19:40 Zosyn 3.375gm/100 Ml D5w Administered 08/24/18 19:41 Dose 3.375 gm in 100 mls @ ud IV .STK-MED ONE Ondansetron HCl 4 mg 08/24/18 21:13 08/24/18 21:31 Zofran 4 Mg/2 Ml Vial IV 08/24/18 21:14 4 mg STAT ONE Administration Ondansetron HCl Confirm 08/24/18 21:23 Zofran 4 Mg/2 Ml Vial Administered 08/24/18 21:24 Dose 4 mg .ROUTE .STK-MED ONE Lab/Rad Data: Laboratory Result Diagrams 08/24/18 19:35 08/24/18 19:35 Laboratory Results 08/24/18 08/24/18 Range/Units 19:35 19:35 WBC 8.3 (4.0-10.5) K/mm3 RBC 4.40 (4.1-5.4) M/mm3 Hgb 12.7 (12.0-16.0) gm/dl Hct 39.4 (35-47) % MCV 89.5 (78-100) fl MCH 28.9 (26-32) pg MCHC 32.2 (32-36) g/dl RDW 14.5 H (11.5-14.0) % Plt Count 283 (150-450) K/mm3 MPV 9.3 (6-9.5) fl Gran % 56.2 (36.0-66.0) % Eos # (Auto) 0.21 (0-0.5) Absolute Lymphs (auto) 2.80 (1.0-4.6) Absolute Monos (auto) 0.57 (0.0-1.3) Lymphocytes % 33.7 (24.0-44.0) % Monocytes % 6.9 (0.0-12.0) % Eosinophils % 2.5 (0.00-5.0) % Basophils % 0.7 (0.0-0.4) % Absolute Granulocytes 4.67 (1.4-6.9) Basophils # 0.06 (0-0.4) Sodium 139 (137-145) mmol/L Potassium 4.5 (3.5-5.1) mmol/L Chloride 102 (98-107) mmol/L Carbon Dioxide 29 (22-30) mmol/L Anion Gap 12.6 (5-15) MEQ/L BUN 16 (7-17) mg/dL Creatinine 0.55 (0.52-1.04) mg/dL Estimated GFR > 60.0 ML/MIN Glucose 146 H (74-106) mg/dL Calcium 9.2 (8.4-10.2) mg/dL - Progress Progress: pain not gone completely Progress Note: 08/24/18 22:19 IV NORMAL SALINE 200ML/HR, ZOSYN 3.375GM IVPB Counseled pt/family regarding: lab results, diagnosis, need for follow-up, rad results - Departure Time of Disposition: 22:23 Departure Disposition: Home (2222) Clinical Impression: LEFT OTITIS EXTERNA, LEFT PERIAURICLE ADENITIS Condition: Stable Critical Care Time: No Referrals: LILIANA SANCHEZ MD [Primary Care Provider] - Additional Instructions: FOLLOWUP WITH YOUR FAMILY PHYSICIAN FOR REFERRAL TO EAR NOSE AND THROAT PHYSICIAN. CIPRO OTIC SUSPENSION 3 DROPS INTO LEFT EAR CANAL TWICE DAILY FOR 7 DAYS. ANTIBIOTIC AUGMENTIN 875MG TWICE DAILY FOR 10 DAYS. TYLENOL EVERY 4 HOURS FOR PAIN. Prescriptions: Amox Tr/Potass Clav. 875 mg [Augmentin 875-125 Tablet] 875 mg PO BID #20 tablet Ciprofloxacin/Hydrocortisone [Cipro Hc Otic Suspension] 3 drops OT BID #1 drops.susp
[2018-08-24] MEDS ORDERED: Zosyn 3.375GM/100 Ml D5W 3.375 GM/100 ML IVPB IV STA (19:13)
[2018-08-24] MEDS ORDERED: Sodium Chloride 0.9% 1000 ML 1,000 ML IV SCH (19:15)
[2018-08-24] MEDS ORDERED: Sodium Chloride 0.9% 1000 ML 1,000 ML ONE (19:39)
[2018-08-24] MEDS ORDERED: Zosyn 3.375GM/100 Ml D5W 3.375 GM/100 ML IVPB IV ONE (19:40)
[2018-08-24 19:49] LABS: BASOPHIL % 0.7 % (0.0-0.4); Basophil (Absolute #) 0.06 (0-0.4); Eosinophil % 2.5 % (0.00-5.0); Eosinophil (Absolute #) 0.21 (0-0.5); Granulocyte Absolute (ANC) 4.67 (1.4-6.9); Granulocytes % 56.2 % (36.0-66.0); Hematocrit 39.4 % (35-47); Hemoglobin 12.7 gm/dl (12.0-16.0); Lymphocytes % 33.7 % (24.0-44.0); Mean Cell Volume 89.5 fl (78-100); Mean Corpuscular Hemoglobin 28.9 pg (26-32); Mean Corpuscular Hgb Concent. 32.2 g/dl (32-36); Mean Platelet Volume 9.3 fl (6-9.5); Monocyte (Absolute #) 0.57 (0.0-1.3); Monocytes % 6.9 % (0.0-12.0); Platelet Count 283 K/mm3 (150-450); Red Cell Distribution Width 14.5 % (11.5-14.0); White Blood Count 8.3 K/mm3 (4.0-10.5)
[2018-08-24 20:09] LABS: ANION GAP 12.6 MEQ/L (5-15); BLOOD UREA NITROGEN 16 mg/dL (7-17); CHLORIDE 102 mmol/L (98-107); Calcium 9.2 mg/dL (8.4-10.2); Carbon Dioxide 29 mmol/L (22-30); Creatinine 1 0.55 mg/dL (0.52-1.04); Glucose 146 mg/dL (74-106); Potassium 4.5 mmol/L (3.5-5.1); SODIUM 139 mmol/L (137-145)
[2018-08-24] MEDS ORDERED: Zofran 4 MG/2 ML VIAL IV ONE (21:13)
[2018-08-24] MEDS ORDERED: SUBLIMAZE 100 MCG/2 ML IV ONE (21:13)
[2018-08-24] MEDS ORDERED: SUBLIMAZE 100 MCG/2 ML ONE (21:23)
[2018-08-24] MEDS ORDERED: Zofran 4 MG/2 ML VIAL ONE (21:23)
[2018-08-24 22:01] VITALS: BP 143/57; PULSE 65; O2SAT 96
--- NOTE | 2018-08-25 08:48 | XRAY ---
Indication: Left earache. Multiple contiguous axial images obtained through the neck using 60 cc Isovue 370 contrast. Comparison: None Internal/external auditory canals and middle ear unremarkable. Visualized paranasal sinuses and mastoid air cells are pneumatized and clear. Scattered centimeter/subcentimeter cervical lymph nodes bilaterally. No pathologic cervical or supraclavicular lymphadenopathy. Parotid and submandibular glands are bilaterally symmetric. Major arteries and veins are normal in course and caliber. Thyroid gland enhances with 5 mm left lobe nodule/cyst. Supra-and infraglottic airway widely patent. Normal epiglottis. 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 Visualized base of the brain and lung apices unremarkable. Impression: 1. Left thyroid 5 mm nodule/cyst. Sonogram may yield further information if clinically warranted. 2. Remaining CT neck with contrast exam is negative. Comment: Preliminary interpretation was made by [facility]. No critical discrepancy. CT DI 11.36
== END 2018-08-24 22:33 | disposition home or self-care (01) ==
LOC: ED 18:23
DX: H60.92 Unspecified otitis externa, left ear (principal); I88.9 Nonspecific lymphadenitis, unspecified
CPT/HCPCS: 36000; 36415; 70491; 80048; 85025; 87040; 96360; 96365; 96374; 96375; 99284; J2405; J2543; J3010

== ENCOUNTER 2019-08-24 14:16 | Emergency (ER) | payer OTHER ==
[2019-08-24 14:31] VITALS: BP 179/86
[2019-08-24] MEDS ORDERED: DUONEB 0.5-3 MG/3 ml Neb IH ONE ×2 (14:44→14:59)
[2019-08-24] MEDS ORDERED: DELTASONE 20 MG PO ONE (14:45)
--- NOTE | 2019-08-24 14:51 | ERPHSYRPT ---
- History of Present Illness Time Seen by Provider: 08/24/19 14:35 Source: patient Exam Limitations: no limitations Patient Subjective Stated Complaint: pt here for congestion,cough, stuffy nose, low grade fever for 4 weeks, she took round of antibotics. Triage Nursing Assessment: walked in, pt alert, resp easy, skin w/d/p. chest clear, abd soft Physician History: Patient has a history of asthma has had 5 weeks of nasal and sinus congestion with chest congestion for the past 5 weeks. Patient has tried her nebulizer for her chest congestion and was given a prescription for Zithromax 5 weeks ago by her advisor consultant without any relief. Timing/Duration: gradual onset, weeks (5) Severity: moderate Prearrival Treatment: over the counter meds, prescription meds Modifying Factors: Improves With: albuterol nebulizer. Worsens With: coughing, deep breath, exertion, lying down Associated Symptoms: cough, fever, nasal congestion/drainage, No ear pain (R), No ear pain (L), No change in hearing, No dizziness, No drooling, No ear drainage, No facial pain/swelling, No headache, No hearing loss, No jaw pain, No malaise, No motion sickness, No epistaxis, No nasal foreign body, No neck pain, No poor fluid intake, No poor solids intake, No ringing of ears, No swollen glands, No sinus infection, No sore throat, No tooth pain, No difficulty swallowing, No voice change Allergies/Adverse Reactions: codeine [Codeine] Allergy (Mild, Verified 08/24/19 14:32) flu vaccine 2010- *RETIRED-02/04/13 [flu vaccine [id number] (3 yr +)] Allergy ( Mild, Verified 08/24/19 14:32) pneumococcal vaccine Allergy (Verified 08/24/19 14:32) trovafloxacin [Trovafloxacin] Allergy (Verified 08/24/19 14:32) acetaminophen [From [place]] Adverse Reaction (Verified 08/24/19 14:32) duloxetine HCl [From [place]] Adverse Reaction (Verified 08/24/19 14:32) hydrocodone bitartrate [From [place]] Adverse Reaction (Verified 08/24/19 14:32) milnacipran HCl [From [place]] Adverse Reaction (Verified 08/24/19 14:32) Home Medications: Metformin HCl 1,000 mg PO BID 12/30/15 [History] Citalopram Hydrobromide 20 mg* [ceLEXa 20 MG] 20 mg PO DAILY 08/13/16 [ History] Metoprolol Tartrate 25 mg [Lopressor 25MG Tab] 25 mg PO BID 08/18/16 [ History] Gabapentin 900 mg PO HS 06/13/17 [History] Albuterol 2.5 mg/3 ml Neb [Proventil 2.5 mg/3 ml Neb] 2.5 mg QID 07/08/17 [History] Hx Tetanus, Diphtheria Vaccination/Date Given: Yes (2013) Hx Influenza Vaccination/Date Given: No Hx Pneumococcal Vaccination/Date Given: No Immunizations Up to Date: Yes - Review of Systems Constitutional: Fever, No Chills, No Fatigue Eyes: No Eye Pain, No Vision Changes Ears, Nose, & Throat: Nose Congestion, Nose Discharge, Sinus Drainage, No Nose Pain, No Mouth Swelling, No Throat Pain, No Throat Swelling, No Painful Swallowing Respiratory: Cough, No Dyspnea Cardiac: No Chest Pain, No Palpitations, No Syncope Abdominal/Gastrointestinal: No Abdominal Pain, No Nausea, No Vomiting, No Hematemesis, No Hematochezia, No Melena Genitourinary Symptoms: No Dysuria, No Frequency, No Hematuria, No Flank Pain Musculoskeletal: No Back Pain, No Neck Pain, No Myalgias Skin: No Pruritis Neurological: No Dizziness, No Focal Weakness, No Headache, No Lethargy, No Paralysis, No Sensory Changes, No Speech Changes Psychological: No Anxiety Endocrine: No Excessive Sweating Hematologic/Lymphatic: No Easy Bleeding, No Easy Bruising All Other Systems: Reviewed and Negative - Past Medical History Pertinent Past Medical History: Yes Neurological History: Migraines, Stroke ENT History: No Pertinent History Cardiac History: Myocardial Infarction ([place]), Hypertension, Other Respiratory History: Asthma Endocrine Medical History: Diabetes Type II Musculoskeletal History: Arthritis, Osteoarthritis, Osteoporosis, Fibromyalgia GI Medical History: Hernia, GERD Psycho-Social History: Depression, Anxiety Female Reproductive Disorders: Endometriosis - Past Surgical History Past Surgical History: Yes Neuro Surgical History: No Pertinent History Cardiac: Cardiac Catheterization Respiratory: No Pertinent History Gastrointestinal: Other, Cholecystectomy Genitourinary: No Pertinent History Musculoskeletal: Orthopedic Surgery Female Surgical History: Hysterectomy, Tubal Ligation, Section Other Surgical History: LEFT ANKLE SURGERY, skin tumor posterior right arm, left index finger - Social History Smoking Status: Former smoker How long have you smoked: 30 Exposure to second hand smoke: No Alcohol Use: None Drug Use: none Patient Lives Alone: No Significant Family History: heart disease, hypertension - Female History Hx Last Menstrual Period: post Hx Now: No - Nursing Vital Signs Nursing Vital Signs: Initial Vital Signs Temperature 97.8 F 08/24/19 14:25 Pulse Rate 74 08/24/19 14:25 Respiratory Rate 20 08/24/19 14:25 Blood Pressure 179/86 08/24/19 14:25 O2 Sat by Pulse Oximetry 98 08/24/19 14:25 Pain Scale Pain Intensity 4 - Physical Exam General Appearance: no apparent distress, alert Eye Exam: bilateral eye: normal inspection, PERRL, EOMI Ear Exam: bilateral ear: auricle normal, canal normal, TM normal Nasal Exam: normal inspection, sinus tenderness, No active bleeding, No discharge, No dried blood, No foreign body Throat Exam: normal, pharynx normal, moist mucus membranes, No dental tenderness , No excessive drooling, No foreign body, No mandibular swelling, No maxillary swelling, No pharynx swelling, No pharynx tenderness, No tongue swollen, No tonsillar exudate, No tonsillar swelling, No uvula swelling Neck Exam: normal inspection, non-tender, supple, full range of motion, No trachea midline, No JVD, No limited range of motion, No lymphadenopathy (R), No lymphadenopathy (L), No stiff neck, No Brudzinski's sign Cardiovascular/Respiratory Exam: chest non-tender, normal breath sounds, regular rate/rhythm, heart sounds normal, no ecchymosis, no JVD, no respiratory distress Abdominal Exam: non-tender, soft, No guarding, No tenderness Neurologic Exam: alert, oriented x 3, cooperative, escape wheel tooth cutter II-XII nml as tested, normal mood/affect, sensation nml, No motor deficits, No agitation Skin Exam: normal color, warm, dry, No rash, No petechiae, No jaundice, No cyanosis SpO2 Interpretation: normal SpO2: 98 O2 Delivery: Room Air - Course Nursing assessment & vital signs reviewed: Yes - Radiology Exams Chest X-ray Interpretation: Reviewed by me, Other (Per radiologist interpretation: Portable chest demonstrates Newmann lingular fibrosis/scarring. Bradycardia heart and lungs normal. Bony thorax intact again with mild degenerative changes.) Ordered Tests: Active Orders 24 hr Category Date Time Status CHEST 1 VIEW (PORTABLE) Stat Exams 08/24/19 15:17 Taken Respiratory Therapy Assessment DAILY RT 08/24/19 14:59 Active Medication Summary Discontinued Medications Generic Name Dose Route Start Last Admin Trade Name Freq PRN Reason Stop Dose Admin Albuterol/Ipratropium 3 ml 08/24/19 14:44 08/24/19 15:00 Duoneb 0.5-3 Mg/3 Ml Neb IH 08/24/19 14:45 3 ml STAT ONE Administration Albuterol/Ipratropium Confirm 08/24/19 14:59 Duoneb 0.5-3 Mg/3 Ml Neb Administered 08/24/19 15:00 Dose 3 ml IH .STK-MED ONE Prednisone 60 mg 08/24/19 14:45 08/24/19 14:55 Deltasone 20 Mg PO 08/24/19 14:46 60 mg STAT ONE Administration Prednisone Confirm 08/24/19 14:53 Deltasone 20 Mg Administered 08/24/19 14:54 Dose 60 mg .ROUTE .STK-MED ONE - Progress Progress: improved Progress Note: 08/24/19 15:23 patient has improved airflow throughout. No hypoxia, no respiratory distress, no excessive muscle use noted,no crackles, rales, or rhonchi. Counseled pt/family regarding: lab results, diagnosis, need for follow-up, rad results - Departure Departure Disposition: Home Clinical Impression: Asthma, persistent not controlled Acute pansinusitis, unspecified Qualifiers: Recurrence: not specified as recurrent Qualified Code(s): J01.40 - Acute pansinusitis, unspecified Hypertension Qualifiers: Hypertension type: essential hypertension Qualified Code(s): I10 - Essential ( primary) hypertension Condition: Good Critical Care Time: No Referrals: LILIANA SANCHEZ MD [Primary Care Provider] - 08/26/19 Instructions: Sinusitis, Adult (DC), Cough, Runny Nose, and the Common Cold (DC ), Asthma, Adult (DC), High Blood Pressure (DC) Additional Instructions: Discharge/Care Plan JAYCE,GONZALO ALCANTARA was seen on 08/24/19 in the Emergency Room. The patient was counseled regarding Diagnosis and Imaging studies, need for follow up and when to return to the Emergency Room. Prescriptions given: Discharge Note I have spoken with the patient and/or caregivers. I have explained the patient' s condition, diagnosis and treatment plan based on the information available to me at this time. I have answered the patient's and/or caregiver's questions and addressed any concerns. The patient and/or caregivers have as good understanding of the patient's diagnosis, condition and treatment plan as can be expected at this point. The vital signs have been stable. The patient's condition is stable and appropriate for discharge from the emergency department. The patient will pursue further outpatient evaluation with the primary care physician or other designated or consulting physician as outlined in the discharge instructions. The patient and/or caregivers are agreeable to this plan of care and follow-up instructions have been explained in detail. The patient and/or caregivers have received these instruction. The patient/and or caregivers are aware that any significant change in condition or worsening of symptoms should prompt an immediate return to this or the closest emergency department or call 911. Forms: Work/School Release Form Prescriptions: Amoxicillin/Potassium Clav [Augmentin 875-125 Tablet] 1 each PO BID #20 tablet Fluticasone Propionate [Flonase NASAL] 2 spray NS BID #1 bottle Prednisone 20 mg [Deltasone 20 mg] 60 mg PO DAILY #9 tablet Vaporizer 1 each MC HS PRN #1 each PRN Reason: Cough
[2019-08-24] MEDS ORDERED: DELTASONE 20 MG ONE (14:53)
[2019-08-24 15:09] VITALS: PULSE 64
[2019-08-24 15:28] VITALS: O2SAT 98
--- NOTE | 2019-08-24 16:03 | XRAY ---
Indication: Cough, congestion, and short of breath several weeks. Comparison: February 10, 2019. Portable chest demonstrates new minimal lingula fibrosis/scarring. Remaining heart and lungs normal. Bony thorax intact again with mild degenerative changes.
== END 2019-08-24 15:46 | disposition home or self-care (01) ==
LOC: ED 14:16
DX: J01.40 Acute pansinusitis, unspecified (principal); I10 Essential (primary) hypertension; J45.909 Unspecified asthma, uncomplicated; R09.81 Nasal congestion; R09.89 Other specified symptoms and signs involving the circulatory and respiratory systems; R50.9 Fever, unspecified
CPT/HCPCS: 71045; 94640; 99284; A9270-GY

== ENCOUNTER 2019-10-25 13:15 | Emergency (ER) | payer OTHER ==
--- NOTE | 2019-10-25 13:22 | ERPHSYRPT ---
- History of Present Illness Source: patient Exam Limitations: no limitations Physician History: the patient is a 54-year-old female who presents with the chief complaint of cough. Onset reportedly was over a week ago. She endorses a dry cough, sore throat, nasal congestion, earache, headaches, myalgia and a fever of 102 Fahrenheit since resolved over a couple days ago. She reportedly has been using her albuterol nebulizer machine frequently at home with some relief in her symptoms I recommend that her cough has persisted she decided to come to the emergency department for further evaluation and management. She denies nausea, vomiting, diarrhea, dizziness, syncope and chest pain She reports that her was sick with similar symptoms and that "he did this to me". Timing/Duration: week(s) (1) Associated Symptoms: shortness of breath, cough, fever, malaise, No nausea, No vomiting, No abdominal pain, No chest pain, No syncope Allergies/Adverse Reactions: codeine [Codeine] Allergy (Mild, Verified 10/25/19 13:29) flu vaccine 2010- *RETIRED-02/04/13 [flu vaccine [id number] (3 yr +)] Allergy ( Mild, Verified 10/25/19 13:29) pneumococcal vaccine Allergy (Verified 10/25/19 13:29) trovafloxacin [Trovafloxacin] Allergy (Verified 10/25/19 13:29) acetaminophen [From [place]] Adverse Reaction (Verified 10/25/19 13:29) duloxetine HCl [From Cymbalta] Adverse Reaction (Verified 10/25/19 13:29) hydrocodone bitartrate [From [place]] Adverse Reaction (Verified 10/25/19 13:29) milnacipran HCl [From [place]] Adverse Reaction (Verified 10/25/19 13:29) Home Medications: Metformin HCl 1,000 mg PO BID 12/30/15 [History] Citalopram Hydrobromide 20 mg* [ceLEXa 20 MG] 20 mg PO DAILY 08/13/16 [ History] Metoprolol Tartrate 25 mg [Lopressor 25MG Tab] 25 mg PO BID 08/18/16 [ History] Gabapentin 900 mg PO HS 06/13/17 [History] Albuterol 2.5 mg/3 ml Neb [Proventil 2.5 mg/3 ml Neb] 2.5 mg QID 07/08/17 [History] Hx Tetanus, Diphtheria Vaccination/Date Given: Yes (2013) Hx Influenza Vaccination/Date Given: No Hx Pneumococcal Vaccination/Date Given: No - Review of Systems Constitutional: Fever, Malaise Eyes: No Symptoms Ears, Nose, & Throat: Ear Pain, Mouth Pain, Mouth Swelling, Throat Pain, No Ear Discharge, No Hearing Changes, No Throat Swelling Respiratory: Cough, Dyspnea, Wheezing, No Dyspnea on Exertion ([place]) Cardiac: No Chest Pain, No Edema, No Orthopnea, No PND Abdominal/Gastrointestinal: No Abdominal Pain, No Nausea, No Vomiting, No Diarrhea Genitourinary Symptoms: No Symptoms Musculoskeletal: Myalgias Skin: No Symptoms Neurological: No Symptoms Psychological: No Symptoms Endocrine: No Symptoms Hematologic/Lymphatic: No Symptoms Immunological/Allergic: No Symptoms All Other Systems: Reviewed and Negative - Past Medical History Pertinent Past Medical History: Yes Neurological History: Migraines, Stroke ENT History: No Pertinent History Cardiac History: Myocardial Infarction ([place]), Hypertension, Other Respiratory History: Asthma Endocrine Medical History: Diabetes Type II Musculoskeletal History: Arthritis, Osteoarthritis, Osteoporosis, Fibromyalgia GI Medical History: Hernia, GERD Psycho-Social History: Depression, Anxiety Female Reproductive Disorders: Endometriosis - Past Surgical History Past Surgical History: Yes Neuro Surgical History: No Pertinent History Cardiac: Cardiac Catheterization Respiratory: No Pertinent History Gastrointestinal: Other, Cholecystectomy Genitourinary: No Pertinent History Musculoskeletal: Orthopedic Surgery Female Surgical History: Hysterectomy, Tubal Ligation, Section Other Surgical History: LEFT ANKLE SURGERY, skin tumor posterior right arm, left index finger - Social History Smoking Status: Former smoker How long have you smoked: 30 Exposure to second hand smoke: No Alcohol Use: None Drug Use: none Patient Lives Alone: No Significant Family History: heart disease, hypertension - Nursing Vital Signs Nursing Vital Signs: Initial Vital Signs Temperature 73 F 10/25/19 13:23 Pulse Rate 71 10/25/19 13:23 Respiratory Rate 22 10/25/19 13:23 Blood Pressure 157/91 10/25/19 13:23 O2 Sat by Pulse Oximetry 96 10/25/19 13:23 Pain Scale Pain Intensity 0 - Physical Exam General Appearance: no apparent distress Eye Exam: PERRL/EOMI Ears, Nose, Throat Exam: normal ENT inspection, TMs normal, pharynx normal, moist mucous membranes, No TM abnormal (R), No TM abnormal (L), No pharyngeal erythema, No tonsillar exudate Neck Exam: normal inspection, non-tender, supple, No meningismus Respiratory Exam: diminished breath sounds, wheezing, No respiratory distress Cardiovascular Exam: regular rate/rhythm, capillary refill <2 sec, edema (Trace bilateral lower extremity edema), No murmur, No friction rub, No gallop, No tachycardia Extremity Exam: normal inspection Neurologic Exam: alert, oriented x 3, cooperative Skin Exam: normal color, warm, dry, No rash SpO2 Interpretation: normal O2 Delivery: Room Air - Course Nursing assessment & vital signs reviewed: Yes EKG Interpreted by Me: RATE, Sinus Rhythm, NORMAL AXIS, NORMAL ST-T, Other ( Vent rate 65 bpm, GA interval 100ms, QRS duration 88 ms, QT/QTc 432/446 ms ) - Radiology Exams Chest X-ray Interpretation: Interpreted by me, Reviewed by me, Negative Ordered Tests: Active Orders 24 hr Category Date Time Status EKG-ER Only STAT Care 10/25/19 13:41 Active Pulse Oximetry (ED) STAT Care 10/25/19 13:41 Active CHEST 2 VIEWS (PA AND LAT) Stat Exams 10/25/19 13:42 Completed Peak Expiratory Flow Rate ONCE RT 10/25/19 14:15 Completed Respiratory Therapy Assessment DAILY RT 10/25/19 14:15 Completed Respiratory Therapy Assessment DAILY RT 10/25/19 14:20 Completed Medication Summary Discontinued Medications Generic Name Dose Route Start Last Admin Trade Name Freq PRN Reason Stop Dose Admin Albuterol Sulfate 2.5 mg 10/25/19 13:41 10/25/19 14:08 Proventil 2.5 Mg/3 Ml Neb IH 10/25/19 13:42 2.5 mg STAT ONE Administration Albuterol Sulfate Confirm 10/25/19 14:03 Proventil 2.5 Mg/3 Ml Neb Administered 10/25/19 14:04 Dose 2.5 mg IH .STK-MED ONE Albuterol/Ipratropium 3 ml 10/25/19 13:41 10/25/19 14:09 Duoneb 0.5-3 Mg/3 Ml Neb IH 10/25/19 13:42 3 ml STAT ONE Administration Albuterol/Ipratropium Confirm 10/25/19 14:03 Duoneb 0.5-3 Mg/3 Ml Neb Administered 10/25/19 14:04 Dose 3 ml IH .STK-MED ONE Prednisone 40 mg 10/26/19 10:00 10/25/19 13:51 Deltasone 20 Mg PO 11/25/19 09:59 40 mg DAILY SJ Administration Prednisone Confirm 10/25/19 13:50 Deltasone 20 Mg Administered 10/25/19 13:51 Dose 40 mg .ROUTE .STK-MED ONE Prednisone Confirm 10/25/19 13:55 Deltasone 20 Mg Administered 10/25/19 13:56 Dose 40 mg .ROUTE .STK-MED ONE - Progress Progress: improved Progress Note: 10/25/19 14:20 The patient was reassessed that her wheezing had cleared while receiving her 2nd neb. She endorses she was breathing much better. 10/25/19 14:51 The patient was ambulated in the ED while monitoring her SpO2 and the lowest reading obtained while walking was 92-94% with no obvious increased work of breathing. Counseled pt/family regarding: diagnosis, need for follow-up, rad results - Departure Departure Disposition: Home Clinical Impression: Asthma exacerbation, Viral URI with cough Condition: Stable Critical Care Time: No Referrals: LILIANA SANCHEZ MD [Primary Care Provider] - Instructions: Asthma, Adult (DC), Viral Upper Respiratory Infection, Adult (DC) Prescriptions: Benzonatate [Tessalon [place]] 100 mg PO [id number] PRN #30 capsule PRN Reason: Cough Albuterol 8 gm Mdi Hfa [Ventolin Hfa MDI] 90 mcg IH Q4H PRN #1 [id number] PRN Reason: Shortness Of Breath Prednisone 20 mg [Deltasone 20 mg] 40 mg PO DAILY 4 Days #8 tablet
[2019-10-25] MEDS ORDERED: PROVENTIL 2.5 MG/3 ML NEB IH ONE ×2 (13:41→14:03)
[2019-10-25] MEDS ORDERED: DUONEB 0.5-3 MG/3 ml Neb IH ONE ×2 (13:41→14:03)
[2019-10-25] MEDS ORDERED: DELTASONE 20 MG ONE ×2 (13:50→13:55)
[2019-10-25 14:52] VITALS: BP 148/62; PULSE 84; O2SAT 94
--- NOTE | 2019-10-25 19:05 | XRAY ---
Indication: Fever, cough, and congestion. Comparison: August 24, 2019. PA/lateral chest again demonstrates minimal lingular fibrosis/scarring. No focal infiltrate, consolidation, or large effusion. Heart is not enlarged. Bony thorax intact with mild degenerative changes. Impression: Stable nonacute chest with chronic features.
[2019-10-26] MEDS ORDERED: DELTASONE 20 MG PO SCH (10:00)
== END 2019-10-25 14:58 | disposition home or self-care (01) ==
LOC: ED 13:15
DX: J45.901 Unspecified asthma with (acute) exacerbation (principal); B34.9 Viral infection, unspecified; J06.9 Acute upper respiratory infection, unspecified; R05 Cough
CPT/HCPCS: 71046; 93005; 94150; 94640; 94760; 99284; J7609; A9270-GY

== ENCOUNTER 2020-03-10 14:24 | Emergency (ER) | payer OTHER ==
--- NOTE | 2020-03-10 14:31 | ERPHSYRPT ---
- History of Present Illness Time Seen by Provider: 03/10/20 14:31 Historian: patient Exam Limitations: no limitations Physician History: This is a 54-year-old morbidly obese white female with a history of chronic steroid use as well as diabetes and hypertension. She also has COPD/ bronchitis. Patient has had a total hysterectomy with bilateral oophorectomy in the past. She presents with infraumbilical and superior pubic midline abdominal pain. There is a baseline level of pain and intermittent severe cramping. She has had no diarrhea she has had no nausea vomiting. She has had no vaginal bleeding or abnormal vaginal discharge. Patient has chronic back pain and it is not worse at this time. Patient states that she cannot take hydrocodone or codeine. She has had Dilaudid intravenously in the past without any problems. Timing/Duration: today Activities at Onset: none Quality: cramping, sharpness Abdominal Pain Onset Location: suprapubic, other (For umbilical) Pain Radiation: no radiation Severity of Pain-Max: moderate Severity of Pain-Current: moderate Associated Symptoms: diaphoresis, No chest pain, No fever/chills, No shortness of breath, No vomiting Previous symptoms: no prior history Allergies/Adverse Reactions: codeine [Codeine] Allergy (Mild, Verified 10/25/19 13:29) flu vaccine 2010- *RETIRED-02/04/13 [flu vaccine [id number] (3 yr +)] Allergy ( Mild, Verified 10/25/19 13:29) pneumococcal vaccine Allergy (Verified 10/25/19 13:29) trovafloxacin [Trovafloxacin] Allergy (Verified 10/25/19 13:29) duloxetine HCl [From Cymbalta] Adverse Reaction (Verified 10/25/19 13:29) hydrocodone bitartrate [From [place]] Adverse Reaction (Verified 10/25/19 13:29) milnacipran HCl [From [place]] Adverse Reaction (Verified 10/25/19 13:29) Home Medications: Metformin HCl 1,000 mg PO BID 12/30/15 [History] Citalopram Hydrobromide 20 mg* [ceLEXa 20 MG] 20 mg PO DAILY 08/13/16 [ History] Metoprolol Tartrate 25 mg [Lopressor 25MG Tab] 25 mg PO BID 08/18/16 [ History] Gabapentin 900 mg PO HS 06/13/17 [History] Albuterol 2.5 mg/3 ml Neb [Proventil 2.5 mg/3 ml Neb] 2.5 mg QID 07/08/17 [History] Hx Tetanus, Diphtheria Vaccination/Date Given: Yes (2013) Hx Influenza Vaccination/Date Given: No Hx Pneumococcal Vaccination/Date Given: No - Review of Systems Constitutional: No Symptoms Eyes: No Symptoms Ears, Nose, & Throat: No Symptoms Respiratory: No Symptoms Cardiac: No Symptoms Abdominal/Gastrointestinal: Abdominal Pain (Infraumbilical and suprapubic midline) Genitourinary Symptoms: No Symptoms Musculoskeletal: No Symptoms Skin: No Symptoms Neurological: No Symptoms Psychological: No Symptoms Endocrine: No Symptoms Hematologic/Lymphatic: No Symptoms Immunological/Allergic: No Symptoms All Other Systems: Reviewed and Negative - Past Medical History Pertinent Past Medical History: Yes Neurological History: Migraines, Stroke ENT History: No Pertinent History Cardiac History: Myocardial Infarction ([place]), Hypertension, Other Respiratory History: Asthma Endocrine Medical History: Diabetes Type II Musculoskeletal History: Arthritis, Osteoarthritis, Osteoporosis, Fibromyalgia GI Medical History: Hernia, GERD Psycho-Social History: Depression, Anxiety Female Reproductive Disorders: Endometriosis - Past Surgical History Past Surgical History: Yes Neuro Surgical History: No Pertinent History Cardiac: Cardiac Catheterization Respiratory: No Pertinent History Gastrointestinal: Other, Cholecystectomy Genitourinary: No Pertinent History Musculoskeletal: Orthopedic Surgery Female Surgical History: Hysterectomy, Tubal Ligation, Section Other Surgical History: LEFT ANKLE SURGERY, skin tumor posterior right arm, left index finger - Social History Smoking Status: Former smoker How long have you smoked: 30 Exposure to second hand smoke: No Alcohol Use: None Drug Use: none Patient Lives Alone: No Significant Family History: heart disease, hypertension - Nursing Vital Signs Nursing Vital Signs: Initial Vital Signs Temperature 98.0 F 03/10/20 14:31 Pulse Rate 75 03/10/20 14:31 Respiratory Rate 18 03/10/20 14:31 Blood Pressure 165/77 03/10/20 14:31 O2 Sat by Pulse Oximetry 95 03/10/20 14:31 Pain Scale Pain Intensity 9 - Physical Exam General Appearance: mild distress, alert, anxiety, obese Eye Exam: PERRL/EOMI, eyes nml inspection Ears, Nose, Throat Exam: normal ENT inspection, moist mucous membranes Neck Exam: normal inspection, non-tender, supple, full range of motion Respiratory Exam: normal breath sounds, lungs clear, airway intact, No chest tenderness, No respiratory distress Cardiovascular Exam: regular rate/rhythm, normal heart sounds, normal peripheral pulses Gastrointestinal/Abdomen Exam: soft, normal bowel sounds, tenderness (Infra umbilical and suprapubic midline), guarding, No rebound Pelvic Exam: not done Rectal Exam: not done Back Exam: normal inspection, normal range of motion, vertebral tenderness, No CVA tenderness Extremity Exam: normal inspection, normal range of motion, pelvis stable Neurologic Exam: alert, oriented x 3, cooperative, flower cutter II-XII nml as tested, normal mood/affect, nml cerebellar function, nml station & gait Skin Exam: normal color, warm, dry Lymphatic Exam: No adenopathy SpO2 Interpretation: normal O2 Delivery: Room Air Ordered Tests: Active Orders 24 hr Category Date Time Status IV Insertion STAT Care 03/10/20 14:57 Active ABDOMEN AND PELVIS W/0 CONTRAS [CT] Stat Exams 03/10/20 14:57 Completed AMYLASE Stat Lab 03/10/20 15:17 Completed CBC W DIFF Stat Lab 03/10/20 15:17 Completed CMP Stat Lab 03/10/20 15:17 Completed CULTURE,URINE Stat Lab 03/10/20 15:00 Received LIPASE Stat Lab 03/10/20 15:17 Completed Lactic Acid Stat Lab 03/10/20 15:16 Completed UA W/RFX UR CULTURE Stat Lab 03/10/20 15:00 Completed Medication Summary Generic Name Dose Route Start Last Admin Trade Name Freq PRN Reason Stop Dose Admin Ceftriaxone Sodium/Dextrose 1 g in 50 mls @ 100 mls/hr 03/10/20 16:50 Rocephin 1 Gm-D5w 50 Ml Bag IV 03/10/20 17:19 STAT STA Discontinued Medications Generic Name Dose Route Start Last Admin Trade Name Freq PRN Reason Stop Dose Admin Hydromorphone HCl 1 mg 03/10/20 14:57 03/10/20 15:04 Hydromorphone 1 Mg/Ml Ampule IV 03/10/20 14:58 1 mg STAT ONE Administration Hydromorphone HCl Confirm 03/10/20 15:02 Hydromorphone 1 Mg/Ml Ampule Administered 03/10/20 15:03 Dose 1 mg .ROUTE .STK-MED ONE Sodium Chloride 1,000 mls @ 999 mls/hr 03/10/20 14:57 03/10/20 16:06 Sodium Chloride 0.9% 1000 Ml IV 03/10/20 15:57 Infused .Q1H1M STA Infusion Sodium Chloride Confirm 03/10/20 15:02 Sodium Chloride 0.9% 1000 Ml Administered 03/10/20 15:03 Dose 1,000 mls @ ud .ROUTE .STK-MED ONE Lorazepam 1 mg 03/10/20 16:22 03/10/20 16:26 Ativan 2 Mg/1 Ml Vial IV 03/10/20 16:23 1 mg STAT ONE Administration Lorazepam Confirm 03/10/20 16:25 Ativan 2 Mg/1 Ml Vial Administered 03/10/20 16:26 Dose 2 mg .ROUTE .STK-MED ONE Ondansetron HCl 4 mg 03/10/20 14:57 03/10/20 15:04 Zofran 4 Mg/2 Ml Vial IV 03/10/20 14:58 4 mg STAT ONE Administration Ondansetron HCl Confirm 03/10/20 15:02 Zofran 4 Mg/2 Ml Vial Administered 03/10/20 15:03 Dose 4 mg .ROUTE .STK-MED ONE Phenazopyridine HCl 200 mg 03/10/20 16:43 Pyridium 200 Mg PO 03/10/20 16:44 STAT ONE Lab/Rad Data: Laboratory Result Diagrams 03/10/20 15:17 03/10/20 15:17 Laboratory Results 03/10/20 03/10/20 03/10/20 Range/Units 15:17 15:17 15:16 WBC 7.6 (4.0-10.5) K/mm3 RBC 4.46 (4.1-5.4) M/mm3 Hgb 12.9 (12.0-16.0) gm/dl Hct 39.5 (35-47) % MCV 88.6 (78-100) fl MCH 28.9 (26-32) pg MCHC 32.7 (32-36) g/dl RDW 14.6 H (11.5-14.0) % Plt Count 307 (150-450) K/mm3 MPV 9.6 (7.5-11.0) fl Gran % 54.9 (36.0-66.0) % Eos # (Auto) 0.10 (0-0.5) Absolute Lymphs (auto) 2.74 (1.0-4.6) Absolute Monos (auto) 0.54 (0.0-1.3) Lymphocytes % 35.9 (24.0-44.0) % Monocytes % 7.1 (0.0-12.0) % Eosinophils % 1.3 (0.00-5.0) % Basophils % 0.8 (0.0-0.4) % Absolute Granulocytes 4.19 (1.4-6.9) Basophils # 0.06 (0-0.4) Sodium 138 (137-145) mmol/L Potassium 4.3 (3.5-5.1) mmol/L Chloride 102 (98-107) mmol/L Carbon Dioxide 24 (22-30) mmol/L Anion Gap 16.7 H (5-15) MEQ/L BUN 9 (7-17) mg/dL Creatinine 0.46 L (0.52-1.04) mg/dL Estimated GFR > 60.0 ML/MIN Glucose 246 H (74-106) mg/dL Lactic Acid 2.6 H (0.4-2.0) Calcium 9.5 (8.4-10.2) mg/dL Total Bilirubin 0.90 (0.2-1.3) mg/dL AST 57 H (14-36) U/L ALT 60 H (0-35) U/L Alkaline Phosphatase 116 (38-126) U/L Serum Total Protein 8.0 (6.3-8.2) g/dL Albumin 4.2 (3.5-5.0) g/dL Amylase 49 (30-110) U/L Lipase 159 (23-300) U/L Urine Color (YELLOW) Urine Appearance (CLEAR) Urine pH (5-6) Ur Specific [place] (1.005-1.025) Urine Protein (Negative) Urine Ketones (NEGATIVE) Urine Blood (0-5) Arthur/ul Urine Nitrite (NEGATIVE) Urine Bilirubin (NEGATIVE) Urine Urobilinogen (0-1) mg/dL Ur Leukocyte Esterase (NEGATIVE) Urine WBC (Auto) (0-5) /HPF Urine RBC (Auto) (0-2) /HPF U Epithel Cells (Auto) (FEW) /HPF Urine Bacteria (Auto) (NEGATIVE) /HPF Urine Mucus (Auto) (NEGATIVE) /HPF Urine Culture Reflexed (NO) Urine Glucose (NEGATIVE) mg/dL 03/10/20 Range/Units 15:00 WBC (4.0-10.5) K/mm3 RBC (4.1-5.4) M/mm3 Hgb (12.0-16.0) gm/dl Hct (35-47) % MCV (78-100) fl MCH (26-32) pg MCHC (32-36) g/dl RDW (11.5-14.0) % Plt Count (150-450) K/mm3 MPV (7.5-11.0) fl Gran % (36.0-66.0) % Eos # (Auto) (0-0.5) Absolute Lymphs (auto) (1.0-4.6) Absolute Monos (auto) (0.0-1.3) Lymphocytes % (24.0-44.0) % Monocytes % (0.0-12.0) % Eosinophils % (0.00-5.0) % Basophils % (0.0-0.4) % Absolute Granulocytes (1.4-6.9) Basophils # (0-0.4) Sodium (137-145) mmol/L Potassium (3.5-5.1) mmol/L Chloride (98-107) mmol/L Carbon Dioxide (22-30) mmol/L Anion Gap (5-15) MEQ/L BUN (7-17) mg/dL Creatinine (0.52-1.04) mg/dL Estimated GFR ML/MIN Glucose (74-106) mg/dL Lactic Acid (0.4-2.0) Calcium (8.4-10.2) mg/dL Total Bilirubin (0.2-1.3) mg/dL AST (14-36) U/L ALT (0-35) U/L Alkaline Phosphatase (38-126) U/L Serum Total Protein (6.3-8.2) g/dL Albumin (3.5-5.0) g/dL Amylase (30-110) U/L Lipase (23-300) U/L Urine Color YELLOW (YELLOW) Urine Appearance SLIGHTLY CLOUDY (CLEAR) Urine pH 5.0 (5-6) Ur Specific [place] 1.028 (1.005-1.025) Urine Protein NEGATIVE (Negative) Urine Ketones NEGATIVE (NEGATIVE) Urine Blood LARGE (0-5) Arthur/ul Urine Nitrite NEGATIVE (NEGATIVE) Urine Bilirubin NEGATIVE (NEGATIVE) Urine Urobilinogen NEGATIVE (0-1) mg/dL Ur Leukocyte Esterase NEGATIVE (NEGATIVE) Urine WBC (Auto) 3-5 (0-5) /HPF Urine RBC (Auto) >101 (0-2) /HPF U Epithel Cells (Auto) RARE (FEW) /HPF Urine Bacteria (Auto) RARE (NEGATIVE) /HPF Urine Mucus (Auto) SLIGHT (NEGATIVE) /HPF Urine Culture Reflexed YES (NO) Urine Glucose >=500 (NEGATIVE) mg/dL - Progress Progress: improved Progress Note: 03/10/20 16:41 CAT scan of the abdomen and pelvis reveals worsening right hip degenerative arthropathy. No acute intra-abdominal findings or abnormalities. The appendix is visualized and there is no evidence of appendicitis. There is no evidence of ureterolithiasis. 03/10/20 17:07 Medical decision making: This patient has no acute intra-abdominal findings on CAT scan. Patient is having urinary bladder spasms as well as hematuria. We will treat the patient with antibiotics, oxybutynin and Pyridium. We will also provide the patient with a short-term prescription of Demerol because the patient is allergic to various types of codeine including hydrocodone. We will also prescribe her some Zofran medication. Patient is to call her primary care doctor tomorrow for further management 03/10/20 17:15 Counseled pt/family regarding: lab results, diagnosis, need for follow-up, rad results - Departure Departure Disposition: Home Clinical Impression: Hematuria, Cystitis, Suprapubic abdominal pain Condition: Stable Critical Care Time: No Referrals: LILIANA SANCHEZ MD [Primary Care Provider] - Additional Instructions: Drink plenty of fluids. Follow-up with your primary care doctor and/or urologist tomorrow for further management. Take medications as prescribed Prescriptions: Ondansetron ODT 4 MG [Zofran Odt 4 mg] 4 mg PO Q6H PRN PRN #10 tab.rapdis PRN Reason: Vomiting Meperidine HCl 50 mg [Demerol 50 MG] 25 mg PO BID 3 Days #6 dose MDD 2 Oxybutynin Chloride 5 mg PO BID #10 tablet Phenazopyridine HCl 200 mg [Pyridium 200 mg] 200 mg PO TID #6 tablet Smz/Tmp Ds Tablet [Bactrim Ds Tablet] 1 udtab PO BID #14 tablet
[2020-03-10] MEDS ORDERED: Sodium Chloride 0.9% 1000 ML 1,000 ML IV STA (14:57)
[2020-03-10] MEDS ORDERED: Hydromorphone 1 mg/ml Ampule IV ONE (14:57)
[2020-03-10] MEDS ORDERED: Zofran 4 MG/2 ML VIAL IV ONE (14:57)
[2020-03-10] MEDS ORDERED: Sodium Chloride 0.9% 1000 ML 1,000 ML ONE (15:02)
[2020-03-10] MEDS ORDERED: Zofran 4 MG/2 ML VIAL ONE (15:02)
[2020-03-10] MEDS ORDERED: Hydromorphone 1 mg/ml Ampule ONE (15:02)
[2020-03-10 15:25] LABS: Appearance SLIGHTLY CLOUDY (CLEAR); Bilirubin NEGATIVE (NEGATIVE); Blood LARGE Ery/ul (0-5); Epithelial Cells RARE /HPF (FEW); Glucose >=500 mg/dL (NEGATIVE); Ketones NEGATIVE (NEGATIVE); Leukocyte Esterase NEGATIVE (NEGATIVE); Mucus SLIGHT /HPF (NEGATIVE); Nitrite NEGATIVE (NEGATIVE); Protein,Urine Dip NEGATIVE (Negative); Specific Gravity 1.028 (1.005-1.025); Urobilinogen NEGATIVE mg/dL (0-1)
[2020-03-10 15:26] LABS: Absolute Neutrophil Ct (ANC) 4.19 (1.4-6.9); BASOPHIL % 0.8 % (0.0-0.4); Basophil (Absolute #) 0.06 (0-0.4); Eosinophil % 1.3 % (0.00-5.0); Hematocrit 39.5 % (35-47); Hemoglobin 12.9 gm/dl (12.0-16.0); Lymphocyte (Absolute #) 2.74 (1.0-4.6); Lymphocytes % 35.9 % (24.0-44.0); Mean Cell Volume 88.6 fl (78-100); Mean Corpuscular Hemoglobin 28.9 pg (26-32); Mean Corpuscular Hgb Concent. 32.7 g/dl (32-36); Mean Platelet Volume 9.6 fl (7.5-11.0); Monocyte (Absolute #) 0.54 (0.0-1.3); Monocytes % 7.1 % (0.0-12.0); Neutrophil % 54.9 % (36.0-66.0); Platelet Count 307 K/mm3 (150-450); Red Blood Count 4.46 M/mm3 (4.1-5.4); Red Cell Distribution Width 14.6 % (11.5-14.0); White Blood Count 7.6 K/mm3 (4.0-10.5)
[2020-03-10 15:31] LABS: ALBUMIN 4.2 g/dL (3.5-5.0); ALKALINE PHOSPHATASE 116 U/L (38-126); AMYLASE 49 U/L (30-110); ANION GAP 16.7 MEQ/L (5-15); BLOOD UREA NITROGEN 9 mg/dL (7-17); CHLORIDE 102 mmol/L (98-107); Calcium 9.5 mg/dL (8.4-10.2); Carbon Dioxide 24 mmol/L (22-30); Creatinine 1 0.46 mg/dL (0.52-1.04); Glucose 246 mg/dL (74-106); LIPASE 159 U/L (23-300); Potassium 4.3 mmol/L (3.5-5.1); SGOT/AST 57 U/L (14-36); SGPT/ALT 60 U/L (0-35); SODIUM 138 mmol/L (137-145)
[2020-03-10 16:09] VITALS: PULSE 78; O2SAT 98
[2020-03-10] MEDS ORDERED: Ativan 2 MG/1 ML VIAL IV ONE (16:22)
[2020-03-10 16:23] LABS: RBC >101 /HPF (0-2)
[2020-03-10 16:24] LABS: Bacteria RARE /HPF (NEGATIVE)
[2020-03-10] MEDS ORDERED: Ativan 2 MG/1 ML VIAL ONE (16:25)
--- NOTE | 2020-03-10 16:34 | XRAY ---
Indication: Right groin pain. Multiple contiguous axial images obtained through the abdomen and pelvis without contrast as ordered. Comparison: May 22, 2015. Lung bases remain clear. Heart is not enlarged. Noncontrasted stomach and bowel loops appear nonobstructed. Normal appendix. Stable minimal scattered colonic diverticulosis without diverticulitis. Stable diffuse fatty hepatomegaly today measuring 26 cm and 13.1 cm splenomegaly. Again previous cholecystectomy, hysterectomy, and ventral hernia repair. No free fluid/air. Remaining pancreas, adrenal glands, kidneys, ureters, and bladder appear unremarkable for noncontrast exam. Stable mild aortoiliac calcifications without AAA. Osseous structures intact with progressive worsening mild/moderate right hip degenerative arthropathy. No ventral or inguinal hernias. Impression: 1. Worsening right hip degenerative arthropathy. 2. Stable fatty hepatomegaly, splenomegaly, and colonic diverticulosis. 3. Remaining CT abdomen/pelvis without contrast exam is negative.
[2020-03-10] MEDS ORDERED: PYRIDIUM 200 MG PO ONE (16:43)
[2020-03-10] MEDS ORDERED: ROCEPHIN 1 Gm-D5w 50 ml Bag** 1 G/50 ML IVPB IV STA (16:50)
[2020-03-10] MEDS ORDERED: PYRIDIUM 200 MG ONE (17:08)
[2020-03-10] MEDS ORDERED: ROCEPHIN 1 Gm-D5w 50 ml Bag** 1 G/50 ML IVPB IV ONE (17:08)
[2020-03-10 17:49] VITALS: BP 142/88
== END 2020-03-10 17:49 | disposition home or self-care (01) ==
LOC: ED 14:24
DX: N30.91 Cystitis, unspecified with hematuria (principal); I10 Essential (primary) hypertension; N32.89 Other specified disorders of bladder; R10.30 Lower abdominal pain, unspecified; J44.9 Chronic obstructive pulmonary disease, unspecified; E66.01 Morbid (severe) obesity due to excess calories; E11.9 Type 2 diabetes mellitus without complications; Z79.4 Long term (current) use of insulin; Z79.899 Other long term (current) drug therapy; Z86.73 Personal history of transient ischemic attack (TIA), and cerebral infarction without residual deficits; M19.90 Unspecified osteoarthritis, unspecified site; M79.7 Fibromyalgia; F32.9 Major depressive disorder, single episode, unspecified; F41.9 Anxiety disorder, unspecified; N80.9 Endometriosis, unspecified
CPT/HCPCS: 36000; 36415; 74176; 80053; 81001; 82150; 83605; 83690; 85025; 87086; 96360; 96365; 96374; 96375; 99284; J0696; J1170; J2060; J2405; A9270-GY

== ENCOUNTER 2020-12-06 13:09 | Emergency (ER) | payer OTHER ==
[2020-12-06] MEDS ORDERED: TORAdol 30 mg Injection IM ONE (13:26)
[2020-12-06] MEDS ORDERED: TORAdol 30 mg Injection ONE (13:31)
--- NOTE | 2020-12-06 13:33 | ERPHSYRPT ---
- History of Present Illness Time Seen by Provider: 12/06/20 13:20 Source: patient Exam Limitations: no limitations Patient Subjective Stated Complaint: Pt fell in kitchen last night and injured her left hip, left knee, and left foot toes Triage Nursing Assessment: Pt was brought to the ER by her , hypertensive, pain to the left hip, left knee, and left foot toes, no visible bruising or swelling, diaphoretic, pulses normal, cap refill normal, rates pain 9/10 Physician History: Patient is a 55-year-old female presents to our ED with complaints of left hip knee and left toe pain. Patient states that she fell at home yesterday. Patient was in her kitchen when she felt her left hip shifted forward. Patient states this happens chronically. This is been evaluated by an orthopedist in the past. Patient has had an x-ray to her left hip and was told she has advanced arthritis. Patient's fall was due to the same mechanism. Sensation of the left hip shifting forward. The fall was not associated with any neuro cardiovascular symptomology. No BHT or LOC. No neck pain. C-spine cleared clinically. Patient denies chest pain or shortness of breath. Pain at her left hip knee and foot described as an ache that is well localized. No radiation. Pain worse with weightbearing. Pain improved with rest. Patient voices no other complaints or concerns at this time. Method of Injury: fell Occurred: yesterday Quality: constant, aching Severity of Pain-Max: moderate Severity of Pain-Current: mild Lower Extremities Pain: hip: left, knee: left, 1st toe: left, 2nd toe: left, 3rd toe: left, 4th toe: left, 5th toe: left Modifying Factors: Improves With: movement Associated Symptoms: unable to bear weight, No dizzy, No fainted, No seizure, No snapping sensation, No popping sensation Allergies/Adverse Reactions: codeine [Codeine] Allergy (Mild, Verified 12/06/20 13:28) flu vaccine 2010- *RETIRED-02/04/13 [flu vaccine [id number] (3 yr +)] Allergy (Mild, Verified 12/06/20 13:28) pneumococcal vaccine Allergy (Verified 12/06/20 13:28) trovafloxacin [Trovafloxacin] Allergy (Verified 12/06/20 13:28) duloxetine HCl [From Cymbalta] Adverse Reaction (Verified 12/06/20 13:28) hydrocodone bitartrate [From Paxinos] Adverse Reaction (Verified 12/06/20 13:28) milnacipran HCl [From Savella] Adverse Reaction (Verified 12/06/20 13:28) Home Medications: Metformin HCl 1,000 mg PO BID 12/30/15 [History] Citalopram Hydrobromide 20 mg* [ceLEXa 20 MG] 20 mg PO DAILY 08/13/16 [History] Metoprolol Tartrate 25 mg [Lopressor 25MG Tab] 50 mg PO BID 08/18/16 [History] Gabapentin 600 mg PO HS 06/13/17 [History] Albuterol 2.5 mg/3 ml Neb [Proventil 2.5 mg/3 ml Neb] 2.5 mg QID 07/08/17 [History] Furosemide 20 mg [Lasix 20 mg] 20 mg PO 2XW 12/06/20 [History] Glipizide 5 mg [Glucotrol 5 MG] 5 mg PO DAILY 12/06/20 [History] Tizanidine HCl 2 mg PO BID 12/06/20 [History] Hx Tetanus, Diphtheria Vaccination/Date Given: Yes (2013) Hx Influenza Vaccination/Date Given: No Hx Pneumococcal Vaccination/Date Given: No Travel Risk - International Travel Have you traveled outside of the country in past 3 weeks: No - Coronavirus Screening Are you exhibiting any of the following symptoms?: No Close contact with a COVID-19 positive Pt in past 14-21 Days: No - Review of Systems Constitutional: No Symptoms, No Fever, No Chills Eyes: No Symptoms Ears, Nose, & Throat: No Symptoms Respiratory: No Symptoms, No Cough, No Dyspnea Cardiac: No Symptoms, No Chest Pain, No Edema, No Syncope Abdominal/Gastrointestinal: No Symptoms, No Abdominal Pain, No Nausea, No Vo miting, No Diarrhea Genitourinary Symptoms: No Symptoms, No Dysuria Musculoskeletal: No Symptoms, No Back Pain, No Neck Pain Skin: No Symptoms, No Rash Neurological: No Symptoms, No Dizziness, No Focal Weakness, No Sensory Changes Psychological: No Symptoms Endocrine: No Symptoms Hematologic/Lymphatic: No Symptoms Immunological/Allergic: No Symptoms All Other Systems: Reviewed and Negative - Past Medical History Pertinent Past Medical History: Yes Neurological History: Migraines, Stroke ENT History: No Pertinent History Cardiac History: Myocardial Infarction ([place]), Hypertension, Other Respiratory History: Asthma Endocrine Medical History: Diabetes Type II Musculoskeletal History: Arthritis, Osteoarthritis, Osteoporosis, Fibromyalgia GI Medical History: Hernia, GERD History: No Pertinent History Psycho-Social History: Depression, Anxiety Female Reproductive Disorders: Endometriosis - Past Surgical History Past Surgical History: Yes Neuro Surgical History: No Pertinent History Cardiac: Cardiac Catheterization Respiratory: No Pertinent History Gastrointestinal: Other, Cholecystectomy Genitourinary: No Pertinent History Musculoskeletal: Orthopedic Surgery Female Surgical History: Hysterectomy, Tubal Ligation, Section Other Surgical History: LEFT ANKLE SURGERY, skin tumor posterior right arm, left index finger - Social History Smoking Status: Former smoker How long have you smoked: 30 Exposure to second hand smoke: No Alcohol Use: None Drug Use: none Patient Lives Alone: No Significant Family History: heart disease, hypertension - Nursing Vital Signs Nursing Vital Signs: Initial Vital Signs Temperature 98.8 F 12/06/20 13:14 Pulse Rate 65 12/06/20 13:14 Blood Pressure 152/77 12/06/20 13:14 O2 Sat by Pulse Oximetry 98 12/06/20 13:14 Pain Scale Pain Intensity 8 - Physical Exam General Appearance: no apparent distress, alert Eyes, Ears, Nose, Throat Exam: moist mucous membranes Neck Exam: non-tender, supple Cardiovascular/Respiratory Exam: chest non-tender, normal breath sounds, regular rate/rhythm, no respiratory distress Gastrointestinal/Abdominal Exam: non-tender, guarding Back Exam: normal inspection, No vertebral tenderness Hips Exam: right: non-tender, normal inspection, normal range of motion, no evidence of injury, other (Tenderness palpation lateral aspect left hip. Overlying soft tissue intact. No ecchymosis. However there is pain to active motion and passive motion of her left hip in flexion extension), left: bone tenderness, pain Legs Exam: bilateral leg: non-tender, normal inspection, normal range of motion, no evidence of injury Knees Exam: right knee: non-tender, normal inspection, normal range of motion, no evidence of injury, left knee: bone tenderness, pain, soft tissue tenderness, other (Tenderness palpation anterolateral aspect of left knee. Overlying soft tissue intact. Ligaments are intact. Negative drawer test. Negative valgus varus stress test.) Ankle Exam: bilateral ankle: non-tender, normal inspection, normal range of motion, no evidence of injury Foot Exam: right foot: non-tender, normal inspection, normal range of motion, no evidence of injury, other (Tenderness palpation at the base of toes of left foot. Overlying soft tissue intact. No ecchymosis. No obvious swelling. Pain with movement and weightbearing. Left lower extremity is neurovascular intact distally. Compartments are soft. Cap refill less than 2 seconds. Negative Kristy), bilateral foot: bone tenderness, soft tissue tenderness Neuro/Tendon Exam: normal sensation, normal motor functions Mental Status Exam: alert, oriented x 3, cooperative Skin Exam: normal color, warm, dry SpO2 Interpretation: airway management int. SpO2: 98 O2 Delivery: Room Air - Course Nursing assessment & vital signs reviewed: Yes - Radiology Exams Foot X-ray Interpretation: Teleradiologist Report (Left foot demonstrate small heel spurs and tiny navicular accessory ossicle. No other bony articular or soft tissue abnormalities observed.) Knee X-ray Interpretation: Teleradiologist Report (Left knee demonstrates mild medial joint space narrowing, patella spurring, tiny proximal tibia healed fibrous cortical defect, and minimal scattered vascular calcifications. No other bony articular or soft tissue abnormalities.) - CT Exams Lower Extremity CT Interpretation: Tele-radiologist Report (Stable tiny superior acetabulum degenerative subcortical cyst. 6 mm left greater trochanter bone island, left pelvic surgical clip, and minimal vascular calcifications. Remaining visualized noncontrasted soft tissues are unremarkable. No acute fracture dislocation or suspicious bony lesions.) Ordered Tests: Active Orders 24 hr Category Date Time Status FOOT (MINIMUM 3 VIEWS) Stat Exams 12/06/20 13:20 Completed KNEE (1 OR 2 VIEW) Stat Exams 12/06/20 13:21 Completed LOWER EXTREMITY WO CONTRAST [CT] Stat Exams 12/06/20 13:22 Completed Medication Summary Discontinued Medications Generic Name Dose Route Start Last Admin Trade Name Freq PRN Reason Stop Dose Admin Ketorolac Tromethamine 30 mg 12/06/20 13:26 12/06/20 13:35 Toradol 30 Mg Injection IM 12/06/20 13:27 30 mg STAT ONE Administration Ketorolac Tromethamine Confirm 12/06/20 13:31 Toradol 30 Mg Injection Administered 12/06/20 13:32 Dose 30 mg .ROUTE .STK-MED ONE - Progress Progress: improved Progress Note: 12/06/20 14:23 Patient reassessed. Pain improved. Imaging studies negative for fracture dislocations. Pain improved. Patient declined crutches. She will take [id number] analgesics. Patient declined anything stronger. She states that she has chronic pain including fibromyalgia. She currently has an appointment scheduled to see a pain specialist. Patient now requesting discharge. Will discharge home. Patient referred to orthopedic clinic for further evaluation and treatment. 12/06/20 14:30 12/06/20 14:37 Counseled pt/family regarding: diagnosis, need for follow-up, rad results - Departure Departure Disposition: Home Clinical Impression: Heel spur, Fall, Hip arthritis, Hip pain Condition: Stable Critical Care Time: No Referrals: LILIANA SANCHEZ MD [Primary Care Provider] - Additional Instructions: Discharge/Care Plan GONZALO EDUARDO was seen on 12/06/20 in the Emergency Room. The patient was counseled regarding Diagnosis,Lab results, Imaging studies, need for follow up and when to return to the Emergency Room. Prescriptions given: Discharge Note I have spoken with the patient and/or caregivers. I have explained the patient's condition, diagnosis and treatment plan based on the information available to me at this time. I have answered the patient's and/or caregiver's questions and addressed any concerns. The patient and/or caregivers have as good understanding of the patient's diagnosis, condition and treatment plan as can be expected at this point. The vital signs have been stable. The patient's condition is stable and appropriate for discharge from the emergency department. The patient will pursue further outpatient evaluation with the primary care physician or other designated or consulting physician as outlined in the discharge instructions. The patient and/or caregivers are agreeable to this plan of care and follow-up instructions have been explained in detail. The patient and/or caregivers have received these instruction. The patient/and or caregivers are aware that any significant change in condition or worsening of symptoms should prompt an immediate return to this or the closest emergency department or call 911. Outpatient Orders: Ortho Referral Time Frame: 1 Day, Facility: [facility], Location: ORTHO CLINIC
--- NOTE | 2020-12-06 14:00 | XRAY ---
Indication: Left hip pain following fall. Multiple contiguous axial images obtained through the left hip. Two-dimensional sagittal and coronal reformatted images obtained. Comparison: CT abdomen/pelvis March 10, 2020. Stable tiny superior acetabulum degenerative subcortical cysts, 6 mm left greater trochanter bone island, left pelvic surgical clip, and minimal vascular calcifications. Remaining visualized noncontrasted soft tissues are unremarkable. No acute fracture, dislocation, or suspicious bony lesions. Impression: Nonacute CT left hip with stable chronic features.
--- NOTE | 2020-12-06 14:08 | XRAY ---
Indication: Pain following fall. Comparison: None AP/lateral left knee demonstrates mild medial joint space narrowing, patella spurring, tiny proximal tibia healed fibrous cortical defect, and minimal scattered vascular calcifications. No other bony, articular, or soft tissue abnormalities.
--- NOTE | 2020-12-06 14:08 | XRAY ---
Indication: Pain following fall. Comparison: None 3 nonweightbearing views left foot demonstrates small heel spurs and tiny navicular accessory ossicle. No other bony, articular, or soft tissue abnormalities.
[2020-12-06 14:57] VITALS: BP 153/71; PULSE 66; O2SAT 99
== END 2020-12-06 14:44 | disposition home or self-care (01) ==
LOC: ED 13:09
DX: M25.552 Pain in left hip (principal); M16.12 Unilateral primary osteoarthritis, left hip; M25.562 Pain in left knee; M79.675 Pain in left toe(s); M77.32 Calcaneal spur, left foot; W18.30XA Fall on same level, unspecified, initial encounter; I25.2 Old myocardial infarction; I10 Essential (primary) hypertension; E11.9 Type 2 diabetes mellitus without complications; Z79.899 Other long term (current) drug therapy
CPT/HCPCS: 73560; 73630; 73700; 96372; 99284; J1885

== ENCOUNTER 2021-11-03 06:01 | Day surgery (SDC) | payer OTHER ==
[~2021-11-03 06:01] MED LIST: CEFAZOLIN 2 GM-D5W BAG** 2 GM/50 ML ML IV SCH; Lactated Ringers 1,000 ML IV SCH
[2021-11-03] MEDS ORDERED: BUPIVACAINE 0.5% VIAL IJ ONE (06:28)
[2021-11-03] MEDS ORDERED: XYLOCAINE 1% HCL 20 ML MDV ONE (06:28)
[2021-11-03] MEDS ORDERED: Zofran 4 MG/2 ML VIAL ONE (06:29)
[2021-11-03] MEDS ORDERED: Xylocaine-Mpf 2% 5 Ml Vial ONE (06:29)
[2021-11-03] MEDS ORDERED: Decadron 4 MG INJ ONE (06:29)
[2021-11-03] MEDS ORDERED: DIPRIVAN 200 MG/20 ML IV ONE ×4 (06:29→07:45)
[2021-11-03] MEDS ORDERED: SUBLIMAZE 100 MCG/2 ML ONE (06:29)
[2021-11-03] MEDS ORDERED: Versed 2 MG/2 ML Injection ONE (06:30)
[2021-11-03] MEDS ORDERED: Transderm Scop 1.5MG Patch ONE (07:03)
[2021-11-03] MEDS ORDERED: Pepcid 20 MG VIAL IV ONE (07:03)
[2021-11-03 09:48] VITALS: BP 139/73; PULSE 55; O2SAT 96
--- NOTE | 2021-11-03 10:19 | OP ---
SURGERY DATE/TIME: 11/03/2021 0708 PREOPERATIVE DIAGNOSES: 1) Soft tissue mass right foot. 2) Pain right foot. POSTOPERATIVE DIAGNOSES: 1) Soft tissue mass right foot. 2) Pain right foot. PROCEDURE: Excision of soft tissue mass right foot. SURGEON: Missael Arias DPM. ENGINE TURNER: None. ANESTHESIA: General plus a postoperative local. HEMOSTASIS: Ankle tourniquet set to 250 mm of Mercury for 26 minutes. ESTIMATED BLOOD LOSS: Less than 5 cc. MATERIALS: 4-0 Monocryl and 3-0 Nylon. INJECTABLES: 30 cc of 1:1 mixture of 1% lidocaine plain and 0.5% bupivacaine plain injected in a Guzmán block-type fashion to the right foot. INDICATION FOR SURGERY: Cyn is a very pleasant 56-year-old female who presented to my clinic for complaint of pain to the right foot sub the first metatarsal phalangeal joint. X-rays were taken demonstrating a significant amount of soft tissue swelling with no significant osteoarthritis at the first metaphalangeal joint. The patient had this pain for quite some time due to this presentation. The patient had soft tissue adaptation consisting of callouses surrounding the weight bearing surface of this area. The patient was quick to have this callous return after debridement and on her return visit an MRI was obtained of the soft tissue mass demonstrating length of approximately 2 x 0.6 x 0.4 cm on the MRI. The patient opted to proceed with a possible ganglion aspiration with steroid injection. During this we were unable to pull off significant amount of fluid confounding the diagnosis once more. The patient opted for surgical intervention at that time after failure of the aspiration and wanted to proceed surgical intervention to remove this cyst in toto. Vascular studies were obtained demonstrated adequate perfusion to the area as well as her being a diabetic Her hemoglobin A1C was noted to be 7.1 which is acceptable from an elective surgical standpoint. With that, the patient understands all risks, benefits and complications of the surgical intervention including but not limited to infection, hematoma, seroma, possibility of recurrence or deformity and need for surgical intervention in the future. The patient understands all of this. Plenty of time was allowed for the patient to ask questions which were answered to the patient's apparent satisfaction. It is with that we proceed with surgical intervention. DESCRIPTION OF PROCEDURE AND FINDINGS: The patient is brought into the OR and placed on the OR tablet in the supine position. The patient was administered general anesthesia and sedated at this time. A well-padded tourniquet is applied to the right ankle and the tourniquet set to 250 mm of Mercury. At this time the right foot was prepped and draped in the typical sterile fashion and lowered onto to the surgical field. Attention was directed to the right foot where with a 15 blade a curvilinear incision was made over the moccasin line of the first metatarsophalangeal joint just plantar to the medial aspect of the first metatarsophalangeal joint. Careful dissection was made to not violate any neurovascular structures to the dissection site. Very quickly at the level below the tibial sesamoid where the cyst appreciated which was encapsulated. Careful attention was made to keep the mass within the encapsulation while removing this was performed utilizing 15 blade and some iris dissection scissors. The mass was removed in toto and the remaining site was inspected for any remaining cystic or soft tissue masses. This was handed off the field and sent for pathological assessment. The areas surrounding the mass were cauterized in order to prevent recurrence. A copious amount of sterile saline was utilized to flush the surgical site and the surgical site was then coapted utilizing 4-0 Monocryl in a simple interrupted-type fashion and a horizontal mattress-type fashion with 3-0 Nylon for skin closure. The tourniquet was let down at this time. Total tourniquet time being 26 minutes. A well-padded dressing consisting of Betadine, Adaptic, 4x4, Kerlix and NATALIE were applied to the right foot. Following this the patient was reversed from anesthesia and brought to the postoperative anesthesia care unit with vital signs stable and vascular status intact. The patient handled the procedure and anesthesia without complication. Postoperative orders as indicated in the patient's discharge chart.
== END 2021-11-03 09:35 | disposition home or self-care (01) ==
LOC: SDC 06:01
PROVIDERS: ATTEND Podiatrist Foot & Ankle Surgery
DX: D23.71 Other benign neoplasm of skin of right lower limb, including hip (principal); L08.89 Other specified local infections of the skin and subcutaneous tissue; L90.5 Scar conditions and fibrosis of skin; M79.671 Pain in right foot; E11.9 Type 2 diabetes mellitus without complications; Z79.899 Other long term (current) drug therapy
CPT/HCPCS: 82947; J0690; J1100; J2250; J2405; J2704; J3010; A9270-GY

== ENCOUNTER 2022-02-06 10:21 | Day surgery (SDC) | payer OTHER ==
[2022-02-06] MEDS ORDERED: CEFAZOLIN 2 GM-D5W BAG** 2 GM/50 ML ML IV ONE (11:48)
[2022-02-06] MEDS ORDERED: Lactated Ringers 1,000 ML IV ONE (11:48)
[2022-02-06] MEDS ORDERED: XYLOCAINE 1% HCL 20 ML MDV ONE (12:06)
[2022-02-06] MEDS ORDERED: BUPIVACAINE 0.5% VIAL IJ ONE (12:06)
[2022-02-06] MEDS ORDERED: SUBLIMAZE 100 MCG/2 ML ONE ×2 (12:46→13:36)
[2022-02-06] MEDS ORDERED: Versed 2 MG/2 ML Injection ONE (12:46)
[2022-02-06] MEDS ORDERED: Decadron 4 MG INJ ONE ×2 (12:56→13:07)
[2022-02-06] MEDS ORDERED: Xylocaine-Mpf 2% 5 Ml Vial ONE (13:07)
[2022-02-06] MEDS ORDERED: TORAdol 30 mg Injection ONE (13:07)
[2022-02-06] MEDS ORDERED: DIPRIVAN 200 MG/20 ML IV ONE (13:07)
[2022-02-06 14:33] VITALS: BP 164/85; PULSE 61; O2SAT 92
--- NOTE | 2022-02-07 08:09 | OP ---
SURGERY DATE/TIME: 02/06/2022 1245 PREOPERATIVE DIAGNOSES: 1) Possible foreign body. 2) Possible abscess. 3) Left foot pain. POSTOPERATIVE DIAGNOSES: 1) Possible foreign body. 2) Possible abscess. 3) Left foot pain. PROCEDURE: Incision and drainage simple left foot. SURGEON: Missael Arias DPM. ORNAMENT SETTER: None. ANESTHESIA: General plus a postoperative local. HEMOSTASIS: None. ESTIMATED BLOOD LOSS: 10 cc. MATERIALS: 4-0 Vicryl, 3-0 Nylon, 2-0 Nylon. INJECTABLES: 30 cc of a 1:1 mixture of 1% lidocaine plain and 0.5% bupivacaine plain injected in ankle block-type fashion. INDICATION FOR PROCEDURE: Cyn is a very pleasant 56-year-old female who is well known to my service for cyst excision approximately three month ago. The patient was at home and was weight bearing without shoes on around the house and stepped on a piece of potpourri. The piece of potpourri was broken and a portion of the potpourri broke off into the patient's foot. On presentation to my office, the patient was approximately ten days from the date of injury. She indicates that the foot felt red, hot, swollen, warm and felt as though there was residual foreign body. Per her , there were some fibrous materials of a dried plant material that was able to be pulled out from the surface level. However, the patient indicates that whenever she is weight bearing and steps in a certain orientation there is a sharp shooting pain that radiates up her foot and feels as though it is stabbing into her foot from a deep perspective. The patient did notice an increase in pain over the course of several days. Ultrasound was obtained on her previous visit demonstrating no soft tissue osseous pathology. At that time, the patient was scheduled for MRI. However despite being placed back this was delayed and the patient was given option with proceeding with an incision and drainage in attempt at foreign body removal versus waiting for MRI. The patient's pain was significant and increasing on a day to day basis over the weekend despite having given antibiotics and pain medicine. The patient opted to proceed with surgical exploration of the site of entry. The patient understands all risks, benefits and complications of surgical intervention including but not limited to unsuccessful surgical intervention, possibility of continued pain, possibility of continued infection, possibility of inability to find the foreign body and possibility of need for surgical intervention at a later date. No guarantees were provided as to the outcome of surgical intervention at this time. Plenty of time was allowed for the patient to ask questions which were answered to the patients apparent satisfaction. It is with that we decided to proceed. DESCRIPTION OF PROCEDURE AND FINDINGS: The patient was brought into the OR and placed on the OR table in the supine position. At this time general anesthesia was administered until the patient was adequately sedated. The patient's left lower extremity was then prepped and draped in the typical sterile fashion. At this time attention was directed to the left foot where injection of 10 cc of a 1:1 mixture of 1% lidocaine plain and 0.5% bupivacaine plain was injected in a V-block type fashion at the plantar aspect of the left foot. At this time a linear incision was made over the planned surgical site where the foreign body had entered. This was deepened utilizing a combination of sharp and blunt dissection down to the level of the plantar fascia being careful not to damage any neurovascular structures along the way. At this time, the adipose tissue was from the plantar fascia and inspection of the site was carried out. No residual abscess or infection was identified. At this time copious amount of sterile saline was utilized to flush the surgical site at this time. The wound was explored down to the level of the plantar fascia and 2 cm from the site of the initial pain which was marked out prior to surgical intervention. No foreign body was found. No abscess was found at this time. Once again copious amounts of sterile saline were utilized to flush the surgical site. A simple buried interrupted suture of 4-0 Monocryl was used to coapt the subcutaneous skin edges and a combination of 3-0 and 2-0 Nylon were utilized to coapt the surgical skin edges in everted-type fashion. The patient was then reversed from anesthesia. Postoperative block of 20 cc of 1:1 mixture of 1% lidocaine plain and 0.5% bupivacaine plain was injected in an ankle block-type fashion. A dressing consisting of Betadine, Adaptic, 4x4, Kerlix and NATALIE were then applied to the patient's left lower extremity. The patient was then reversed from anesthesia and sent to the postoperative anesthesia care unit with vital signs stable and vascular status intact. The patient handled the anesthesia as well as the procedure without complication. Postoperative orders as indicated in the patient's discharge chart.
== END 2022-02-06 14:50 | disposition home or self-care (01) ==
LOC: SDC 10:21
PROVIDERS: ATTEND Podiatrist Foot & Ankle Surgery
DX: S90.852A Superficial foreign body, left foot, initial encounter (principal); L02.612 Cutaneous abscess of left foot; M79.672 Pain in left foot; R26.2 Difficulty in walking, not elsewhere classified; E11.9 Type 2 diabetes mellitus without complications
CPT/HCPCS: 10060; 82947; J0690; J1100; J1885; J2250; J2704; J3010

== ENCOUNTER 2023-05-15 10:03 | Emergency (ER) | payer OTHER ==
--- NOTE | 2023-05-15 10:11 | ERPHSYRPT ---
- History of Present Illness Time Seen by Provider: 05/15/23 10:11 Source: patient Exam Limitations: no limitations Physician History: This is an obese 57-year-old white female patient of Dr. Farrell who has a history of diabetes, hypertension, gastroesophageal reflux disease, COPD/bronchitis, arthritis and fibromyalgia and presents to the emergency department with sensa tion of a "sneed" of warmth on her entire body with associated tingling in her hands and a squeezing sensation in her chest. Patient did undergo ventral hernia repair of her abdominal wall approximately 8 days ago. She initially thought that her blood sugar was low. Her initial blood sugar at home was 94. She got her blood sugar up to 104. She arrives to the emergency department where her blood sugar reading was 144. She still has those symptoms. Patient is not short of breath. She has postoperative abdominal pain. She has had no vomiting but has nausea. She has had no diarrhea. Timing/Duration: today Severity: mild Associated Symptoms: nausea, chest pain (Described as a squeezing), No shortness of breath Allergies/Adverse Reactions: codeine [Codeine] Allergy (Mild, Verified 05/15/23 10:22) flu vaccine 2010- *RETIRED-02/04/13 [flu vaccine [id number] (3 yr +)] Allergy (Mild, Verified 05/15/23 10:22) pneumococcal vaccine Allergy (Verified 05/15/23 10:22) trovafloxacin [Trovafloxacin] Allergy (Verified 05/15/23 10:22) duloxetine HCl [From Cymbalta] Adverse Reaction (Verified 05/15/23 10:22) hydrocodone bitartrate [From [place]] Adverse Reaction (Verified 05/15/23 10:22) milnacipran HCl [From [place]] Adverse Reaction (Verified 05/15/23 10:22) Home Medications: Metformin HCl 1,000 mg PO BID 12/30/15 [History] Citalopram Hydrobromide 20 mg* [ceLEXa 20 MG] 20 mg PO DAILY 08/13/16 [History] Metoprolol Tartrate 25 mg [Lopressor 25MG Tab] 50 mg PO BID 08/18/16 [History] Gabapentin 600 mg PO HS 06/13/17 [History] Albuterol 2.5 mg/3 ml Neb [Proventil 2.5 mg/3 ml Neb] 2.5 mg QID 07/08/17 [History] Glipizide 5 mg [Glucotrol 5 MG] 5 mg PO DAILY 12/06/20 [History] Tizanidine HCl 2 mg PO BID 12/06/20 [History] Amlodipine Besylate 5 mg [Norvasc 5 mg] 5 mg PO DAILY 10/31/21 [History] Bumetanide 1 mg PO UD 10/31/21 [History] Dicyclomine HCl 10 mg PO QID 10/31/21 [History] Nitroglycerin [Nitrostat] 0.3 mg SL UD 10/31/21 [History] Omeprazole 20 mg PO DAILY 10/31/21 [History] Acetaminophen [Tylenol Extra Strength] 2 tab PO Q4H PRN 11/03/21 [History] Hx Tetanus, Diphtheria Vaccination/Date Given: Yes (2013) Hx Influenza Vaccination/Date Given: No Hx Pneumococcal Vaccination/Date Given: No Travel Risk - International Travel Have you traveled outside of the country in past 3 weeks: No - Coronavirus Screening Are you exhibiting any of the following symptoms?: No Close contact with a COVID-19 positive Pt in past 14-21 Days: No - Review of Systems Constitutional: No Symptoms Eyes: No Symptoms Ears, Nose, & Throat: No Symptoms Respiratory: No Symptoms Cardiac: Chest Pain (Described as a generalized squeezing) Abdominal/Gastrointestinal: Nausea, No Abdominal Pain, No Vomiting, No Diarrhea, No Appetite Changes Genitourinary Symptoms: No Symptoms Musculoskeletal: No Symptoms Skin: No Symptoms Neurological: No Symptoms Psychological: Anxiety Endocrine: No Symptoms Hematologic/Lymphatic: No Symptoms Immunological/Allergic: No Symptoms All Other Systems: Reviewed and Negative - Past Medical History Pertinent Past Medical History: Yes Neurological History: Migraines, Stroke ENT History: No Pertinent History Cardiac History: Myocardial Infarction ([place]), Hypertension, Other Respiratory History: Asthma Endocrine Medical History: Diabetes Type II Musculoskeletal History: Arthritis, Osteoarthritis, Osteoporosis, Fibromyalgia GI Medical History: Hernia, GERD History: No Pertinent History Psycho-Social History: Depression, Anxiety Female Reproductive Disorders: Endometriosis Other Medical History: fatty liver - Past Surgical History Past Surgical History: Yes Neuro Surgical History: No Pertinent History Cardiac: Cardiac Catheterization Respiratory: No Pertinent History Gastrointestinal: Cholecystectomy, Hernia Repair, Other Genitourinary: No Pertinent History Musculoskeletal: Orthopedic Surgery Female Surgical History: Hysterectomy, Tubal Ligation, Section Other Surgical History: LEFT ANKLE SURGERY, skin tumor posterior right arm, left index finger 12 abdominal hernia repairs. soft tissue mass removed from foot., plantar fasciatis surgery. - Social History Smoking Status: Former smoker How long have you smoked: 30 Exposure to second hand smoke: No Alcohol Use: None Drug Use: none Patient Lives Alone: No Significant Family History: heart disease, hypertension - Nursing Vital Signs Nursing Vital Signs: Initial Vital Signs Pulse Rate 64 05/15/23 10:20 Respiratory Rate 22 05/15/23 10:20 Blood Pressure 150/89 05/15/23 10:20 O2 Sat by Pulse Oximetry 98 05/15/23 10:20 Pain Scale Pain Intensity 0 - Physical Exam General Appearance: no apparent distress, alert, anxiety, obese Eye Exam: PERRL/EOMI, eyes nml inspection Ears, Nose, Throat Exam: normal ENT inspection, moist mucous membranes Neck Exam: normal inspection, non-tender, supple, full range of motion Respiratory Exam: normal breath sounds, chest tenderness, lungs clear (Describes as a squeezing), prolonged expirations, No respiratory distress Cardiovascular Exam: regular rate/rhythm, normal heart sounds, normal peripheral pulses Gastrointestinal/Abdomen Exam: soft, normal bowel sounds, tenderness (Postoperative. Incision) Pelvic Exam: not done Rectal Exam: not done Back Exam: normal inspection, normal range of motion, No CVA tenderness, No vertebral tenderness Extremity Exam: normal inspection, normal range of motion, pelvis stable Neurologic Exam: alert, oriented x 3, cooperative, optical glass sawyer II-XII nml as tested, normal mood/affect, nml cerebellar function, nml station & gait, sensation nml Skin Exam: normal color, warm, dry Lymphatic Exam: No adenopathy SpO2 Interpretation: normal O2 Delivery: Room Air - Course Nursing assessment & vital signs reviewed: Yes EKG Interpreted by Me: RATE (No acute ischemic changes on today's twelve-lead EKG65), Sinus Rhythm, NORMAL AXIS, NORMAL INTERVALS, NORMAL QRS, NORMAL ST-T, Other Ordered Tests: Active Orders 24 hr Category Date Time Status Odd Shoe Examiner STAT Care 05/15/23 10:43 Active EKG-ER Only STAT Care 05/15/23 10:42 Active IV Insertion STAT Care 05/15/23 10:42 Active Pulse Oximetry (ED) STAT Care 05/15/23 10:42 Active Tele-Health Consult ROUTINE Cons 05/15/23 14:08 Active HEAD WITHOUT CONTRAST [CT] Stat Exams 05/15/23 10:42 Completed MRA BRAIN WITHOUT CONTRAST [MRI] Stat Exams 05/15/23 11:20 Completed MRA NECK W AND W/O CONTRAST [MRI] Stat Exams 05/15/23 11:59 Completed MRI BRAIN W/O CONTRAST [MRI] Stat Exams 05/15/23 15:07 Completed CBC W DIFF Stat Lab 05/15/23 10:30 Completed CMP Stat Lab 05/15/23 10:30 Completed POCT GLUCOSE Stat Lab 05/15/23 10:18 Completed TROPONIN Q4H Lab 05/15/23 10:30 Completed TROPONIN Q4H Lab 05/15/23 15:10 Completed TROPONIN Q4H Lab 05/15/23 18:45 Ordered UA W/RFX UR CULTURE Stat Lab 05/15/23 10:45 Completed Medication Summary Discontinued Medications Generic Name Dose Route Start Last Admin Trade Name Freq PRN Reason Stop Dose Admin Ondansetron HCl Confirm 05/15/23 10:36 Ondansetron Hcl 4 Mg/2 Ml Vial Administered 05/15/23 10:37 Dose 4 mg .ROUTE .STK-MED ONE Ondansetron HCl 4 mg 05/15/23 10:52 05/15/23 10:55 Ondansetron Hcl 4 Mg/2 Ml Vial IV 05/15/23 10:53 4 mg STAT ONE Administration Lab/Rad Data: Laboratory Result Diagrams 05/15/23 10:30 05/15/23 10:30 Laboratory Results 05/15/23 05/15/23 05/15/23 Range/Units 15:10 10:45 10:30 WBC (4.0-10.5) x10^3/uL RBC (4.1-5.4) x10^6/uL Hgb (12.0-16.0) g/dL Hct (35-47) % MCV (78-100) fL MCH (26-32) pg MCHC (32-36) g/dL RDW (11.5-14.0) % Plt Count (150-450) x10^3/uL MPV (7.5-11.0) fL Gran % (36.0-66.0) % Immature Gran % (Auto) (0.00-0.4) % Nucleat RBC Rel Count (0.00-0.1) % Eos # (Auto) (0-0.5) x10^3/uL Immature Gran # (Auto) (0.00-0.03) x10^3u/L Absolute Lymphs (auto) (1.0-4.6) x10^3/uL Absolute Monos (auto) (0.0-1.3) x10^3/uL Absolute Nucleated RBC (0.00-0.01) x10^3u/L Lymphocytes % (24.0-44.0) % Monocytes % (0.0-12.0) % Eosinophils % (0.00-5.0) % Basophils % (0.0-0.4) % Absolute Granulocytes (1.4-6.9) x10^3/uL Basophils # (0-0.4) x10^3/uL Sodium (137-145) mmol/L Potassium (3.5-5.1) mmol/L Chloride (98-107) mmol/L Carbon Dioxide (22-30) mmol/L Anion Gap (5-15) MEQ/L BUN (7-17) mg/dL Creatinine (0.52-1.04) mg/dL Estimated GFR ML/MIN Glucose (74-106) mg/dL POC Glucometer (74 to 106) mg/dL Calcium (8.4-10.2) mg/dL Total Bilirubin (0.2-1.3) mg/dL AST (14-36) U/L ALT (0-35) U/L Alkaline Phosphatase (38-126) U/L Troponin I < 0.012 < 0.012 (0.000-0.034) ng/mL Serum Total Protein (6.3-8.2) g/dL Albumin (3.5-5.0) g/dL Urine Color Yellow (Yellow) Urine Appearance Clear (Clear) Urine pH 8.0 (4.6-8.0) Ur Specific [place] 1.015 (1.005-1.030) Urine Protein Negative (Negative) Urine Glucose (UA) Negative (Negative) mg/dL Urine Ketones Negative (Negative) Urine Blood Negative (Negative) Urine Nitrite Negative (Negative) Urine Bilirubin Negative (Negative) Urine Urobilinogen 0.2 (0.2) mg/dL Ur Leukocyte Esterase Negative (Negative) U Hyaline Cast (Auto) 3-5 A (0-2) /LPF Urine Microscopic RBC 0-2 (0-5) /HPF Urine Microscopic WBC 0-2 (0-5) /HPF Ur Epithelial Cells None Seen (None Seen) /HPF Urine Bacteria None Seen (None Seen) /HPF Urine Culture Reflexed NO (NO) 05/15/23 05/15/23 05/15/23 Range/Units 10:30 10:30 10:18 WBC 8.1 (4.0-10.5) x10^3/uL RBC 4.15 (4.1-5.4) x10^6/uL Hgb 11.9 L (12.0-16.0) g/dL Hct 37.3 (35-47) % MCV 89.9 (78-100) fL MCH 28.7 (26-32) pg MCHC 31.9 L (32-36) g/dL RDW 13.3 (11.5-14.0) % Plt Count 296 (150-450) x10^3/uL MPV 9.2 (7.5-11.0) fL Gran % 63.2 (36.0-66.0) % Immature Gran % (Auto) 0.4 (0.00-0.4) % Nucleat RBC Rel Count 0.0 (0.00-0.1) % Eos # (Auto) 0.32 (0-0.5) x10^3/uL Immature Gran # (Auto) 0.03 (0.00-0.03) x10^3u/L Absolute Lymphs (auto) 2.00 (1.0-4.6) x10^3/uL Absolute Monos (auto) 0.55 (0.0-1.3) x10^3/uL Absolute Nucleated RBC 0.00 (0.00-0.01) x10^3u/L Lymphocytes % 24.7 (24.0-44.0) % Monocytes % 6.8 (0.0-12.0) % Eosinophils % 3.9 (0.00-5.0) % Basophils % 1.0 (0.0-0.4) % Absolute Granulocytes 5.13 (1.4-6.9) x10^3/uL Basophils # 0.08 (0-0.4) x10^3/uL Sodium 137 (137-145) mmol/L Potassium 4.3 (3.5-5.1) mmol/L Chloride 101 (98-107) mmol/L Carbon Dioxide 24 (22-30) mmol/L Anion Gap 16.5 H (5-15) MEQ/L BUN 14 (7-17) mg/dL Creatinine 0.84 (0.52-1.04) mg/dL Estimated GFR > 60.0 ML/MIN Glucose 139 H (74-106) mg/dL POC Glucometer 144 H (74 to 106) mg/dL Calcium 9.2 (8.4-10.2) mg/dL Total Bilirubin 0.80 (0.2-1.3) mg/dL AST 30 (14-36) U/L ALT 26 (0-35) U/L Alkaline Phosphatase 114 (38-126) U/L Troponin I (0.000-0.034) ng/mL Serum Total Protein 7.6 (6.3-8.2) g/dL Albumin 3.9 (3.5-5.0) g/dL Urine Color (Yellow) Urine Appearance (Clear) Urine pH (4.6-8.0) Ur Specific [place] (1.005-1.030) Urine Protein (Negative) Urine Glucose (UA) (Negative) mg/dL Urine Ketones (Negative) Urine Blood (Negative) Urine Nitrite (Negative) Urine Bilirubin (Negative) Urine Urobilinogen (0.2) mg/dL Ur Leukocyte Esterase (Negative) U Hyaline Cast (Auto) (0-2) /LPF Urine Microscopic RBC (0-5) /HPF Urine Microscopic WBC (0-5) /HPF Ur Epithelial Cells (None Seen) /HPF Urine Bacteria (None Seen) /HPF Urine Culture Reflexed (NO) - Progress Progress: improved, re-examined Progress Note: 05/15/23 12:30 CT scan of the head without contrast shows a left basal ganglia that demonstrates new lacunar infarct. There is age-appropriate atrophy. There is no acute intracranial hemorrhage. This patient's medical issue is 1 of at least moderate complexity. It may change depending on the teleneurologist recommendations. The work-up in this patient is based on the patient's past medical history, review of the patient's medication list, review the patient's drug allergy list, history of present illness and physical findings on examination. The work-up in this patient includes a twelve-lead EKG, CBC, CMP, urinalysis, placement of an intravenous line, CT scan of the head without contrast, troponin level. The CT scan of the head without contrast was interpreted by the radiologist and I reviewed the impression. Based on this finding and based on the patient's history of a CVA of the brainstem per patient report, I ordered an MRA of the brain and a MRA/MRI of the neck. We will also obtain a teleneurology consultation. The findings of the CT scan of the head, twelve-lead EKG and blood work results were discussed with the patient and her spouse. 05/15/23 14:00 MRA of the neck was interpreted by the radiologist. The left internal carotid artery has 50 to 60% stenosis. The right internal carotid artery has less than 50% stenosis. MRA MRI of the brain is negative MRA of [place]. We are awaiting the teleneurology consultation. 05/15/23 15:19 I spoke with the teleneurologist. She reviewed the history physical findings and performed her own history and physical exam. She also reviewed our work-up results. The neurologist feels that this patient's constellation of symptoms is atypical for an acute cerebral infarction. The neurologist also reads the CT scan report as a new finding when compared to September 2016 CAT scan without contrast but not in acute event. She wanted an MRI of the brain performed. She stated that if this test is positive for an acute finding I am to call her back and she will provide recommendations. If the results of this MRI of the brain does not show any acute findings, the patient can be discharged to home with instructions to continue aspirin. She would then follow-up with her primary care provider for further evaluation and management. 05/15/23 16:36 MRI of the brain without contrast shows atrophy and degenerative changes consistent with her age. There is a tiny remote lacunar infarct of the left basal ganglia. Counseled pt/family regarding: lab results, diagnosis, rad results Medical Desision Making - Independent Historian Additional History obtained from: Spouse - Discussion of managment Care discussed with:: specialist (Teleneurologist) Reviewed:: Test results, Need for additional workup Agreed on:: Treatment plan - Diagnostic Testing Diagnostic test were ordered, analyzed, and reviewed by me: Yes Radiological Interpretation: Reviewed by me, Teleradiologist Report - Departure Departure Disposition: Home Clinical Impression: Numbness, Dizziness Condition: Stable Critical Care Time: No Referrals: LILIANA SANCHEZ MD [Primary Care Provider] - Follow up/PCP as directed Additional Instructions: Take all your medication as prescribed. Follow-up with your primary care physician for further evaluation management.
[2023-05-15 10:35] VITALS: TEMP 95.5
[2023-05-15] MEDS ORDERED: Zofran 4 MG/2 ML VIAL ONE (10:36)
[2023-05-15 10:52] LABS: Absolute Neutrophil Ct (ANC) 5.13 x10^3/uL (1.4-6.9); Basophil (Absolute #) 0.08 x10^3/uL (0-0.4); Eosinophil % 3.9 % (0.00-5.0); Eosinophil (Absolute #) 0.32 x10^3/uL (0-0.5); Hematocrit 37.3 % (35-47); Hemoglobin 11.9 g/dL (12.0-16.0); IMMATURE GRAN # 0.03 x10^3u/L (0.00-0.03); IMMATURE GRAN % 0.4 % (0.00-0.4); Lymphocytes % 24.7 % (24.0-44.0); Mean Cell Volume 89.9 fL (78-100); Mean Corpuscular Hemoglobin 28.7 pg (26-32); Mean Corpuscular Hgb Concent. 31.9 g/dL (32-36); Mean Platelet Volume 9.2 fL (7.5-11.0); Monocyte (Absolute #) 0.55 x10^3/uL (0.0-1.3); Monocytes % 6.8 % (0.0-12.0); Neutrophil % 63.2 % (36.0-66.0); Platelet Count 296 x10^3/uL (150-450); Red Blood Count 4.15 x10^6/uL (4.1-5.4); Red Cell Distribution Width 13.3 % (11.5-14.0); White Blood Count 8.1 x10^3/uL (4.0-10.5)
[2023-05-15] MEDS: Zofran 4 MG/2 ML VIAL IV ONE (10:55)
[2023-05-15 10:57] LABS: Appearance Clear (Clear); Bacteria None Seen /HPF (None Seen); Bilirubin Negative (Negative); Blood Negative (Negative); Epithelial Cells None Seen /HPF (None Seen); Glucose, Urine Negative (Negative); Ketones Negative (Negative); Leukocyte Esterase Negative (Negative); Nitrite Negative (Negative); Protein,Urine Dip Negative (Negative); RBC 0-2 /HPF (0-5); Specific Gravity 1.015 (1.005-1.030); Urobilinogen 0.2 mg/dL (0.2); WBC 0-2 /HPF (0-5)
[2023-05-15 11:00] LABS: ADD URINE CULTURE? NO (NO)
[2023-05-15 11:09] LABS: ALBUMIN 3.9 g/dL (3.5-5.0); ALKALINE PHOSPHATASE 114 U/L (38-126); ANION GAP 16.5 MEQ/L (5-15); BLOOD UREA NITROGEN 14 mg/dL (7-17); CHLORIDE 101 mmol/L (98-107); Calcium 9.2 mg/dL (8.4-10.2); Carbon Dioxide 24 mmol/L (22-30); Creatinine 1 0.84 mg/dL (0.52-1.04); EST GLOMERULAR FILTRATION RATE > 60.0 ML/MIN; Glucose 139 mg/dL (74-106); Potassium 4.3 mmol/L (3.5-5.1); SGOT/AST 30 U/L (14-36); SGPT/ALT 26 U/L (0-35); SODIUM 137 mmol/L (137-145); Total Protein 7.6 g/dL (6.3-8.2)
--- NOTE | 2023-05-15 11:15 | XRAY ---
Indication: Numbness in hands. Multiple contiguous axial images obtained through the head without contrast. Comparison: September 29, 2016 Age-appropriate global atrophy. Left basal ganglia demonstrates new lacunar infarct. No acute intracranial hemorrhage, abnormal extra axial fluid collection, or mass effect. Fourth ventricle is midline without hydrocephalus. Weiss-white matter differentiation preserved. Bony calvarium intact. New 1.3 cm right maxillary sinus polyp/retention cyst. Remaining visualized paranasal sinuses and mastoid air cells are clear. Impression: New lacunar infarct left basal ganglia and right maxillary sinus polyp/retention cyst. Remaining CT head without contrast exam is negative.
[2023-05-15 11:57] VITALS: PULSE 64
--- NOTE | 2023-05-15 13:16 | XRAY ---
Indication: Dizziness. Bilateral hand numbness. Conventional contrast enhanced MRA neck performed using 20 cc Dotare[place] contrast. Comparison: None Visualized aortic arch is normal in course and caliber with normal branching right brachiocephalic, left common carotid, and left subclavian arteries. Distal left and right common carotid and carotid bulbs are normal in MRA appearance. Proximal left internal carotid demonstrates mild arteriosclerotic disease producing 50-60% stenosis. Lesser arteriosclerotic disease seen in the proximal right internal carotid artery. Remaining visualized left/right external carotid and left/right vertebral arteries are normal in MRA appearance. Impression: 1. 50-60% stenosis proximal left internal carotid artery. Less than 50% stenosis proximal right internal carotid artery. 2. Remaining MRA neck with contrast exam is negative.
--- NOTE | 2023-05-15 13:18 | XRAY ---
Indication: Dizziness. Bilateral hand numbness. Multi-slab 3-D [id number] MRA [place] performed. Comparison: None Distal internal carotid arteries are bilaterally symmetric without critical stenosis or obstruction. Normal carotid terminus with normal branching A1 and M1 segments bilaterally. Posterior circulation demonstrates normal MRA appearance to the distal left/right vertebral, basilar, left/right posterior cerebral, and left/right superior cerebellar arteries. Impression: Negative MRA [place].
[2023-05-15 13:39] VITALS: RESP 18; O2SAT 97
[2023-05-15 15:13] VITALS: BP 128/71
--- NOTE | 2023-05-15 16:35 | XRAY ---
Indication: Dizziness. Bilateral hand numbness. Sagittal, coronal, and axial MRI brain performed without contrast using T1, T2, FLAIR, diffusion, and ADC sequences. Comparison: None Age-appropriate global atrophy and mild periventricular degenerative micro-ischemia bilaterally. Brainstem/edith demonstrates additional degenerative micro-ischemia signal. Tiny remote lacunar infarct left basal ganglia. No acute intracranial hemorrhage, abnormal extra-axial fluid collection, or mass effect. Diffusion images are negative for restricted signal. Fourth ventricle is midline without hydrocephalus. 7/8 cranial nerve complex bilaterally symmetric. Normal flow void signal within the major intracerebral circulation. Normal craniocervical junction and sella turcica. Floor right maxillary sinus demonstrates 1 cm polyp/retention cyst. Remaining paranasal sinuses are clear. Impression: Atrophy and degenerative micro-ischemia within normal limits for patient's age. Tiny remote lacunar infarct left basal ganglia. Right maxillary sinus polyp/retention cyst. Remaining MRI brain without contrast exam is negative.
== END 2023-05-15 16:54 | disposition home or self-care (01) ==
LOC: ED 10:03
DX: R20.0 Anesthesia of skin (principal); R42 Dizziness and giddiness; R07.9 Chest pain, unspecified; E11.9 Type 2 diabetes mellitus without complications; I10 Essential (primary) hypertension; Z79.84 Long term (current) use of oral hypoglycemic drugs; Z79.899 Other long term (current) drug therapy
CPT/HCPCS: 36000; 36415; 70450; 70544; 70549; 70551; 80053; 81001; 82947; 84484; 85025; 93005; 93041; 94760; 96374; 99284; J2405

== ENCOUNTER 2024-12-06 11:47 | Observation (INO) | payer OTHER ==
[2024-12-06] MEDS ORDERED: Zofran 4 MG/2 ML VIAL ONE (12:27)
[2024-12-06] MEDS ORDERED: Sodium Chloride 0.9% 1000 ML 1,000 ML ONE (12:27)
[2024-12-06] MEDS: Zofran 4 MG/2 ML VIAL IV ONE (12:28)
[2024-12-06] MEDS: Sodium Chloride 0.9% 1000 ML 1,000 ML IV STA (12:28)
[2024-12-06 12:31] LABS: Hematocrit 37.9 % (34.1-44.9); Hemoglobin 12.7 g/dL (11.2-15.7); Mean Cell Volume 81.5 fL (79.4-94.8); Mean Corpuscular Hemoglobin 27.3 pg (25.6-32.2); Mean Corpuscular Hgb Concent. 33.5 g/dL (32.2-35.5); Mean Platelet Volume 9.9 fL (9.4-12.3); Platelet Count 350 x10^3/uL (182-369); Red Blood Count 4.65 x10^6/uL (3.93-5.22); Red Cell Distribution Width 13.8 % (11.7-14.4); White Blood Count 9.3 x10^3/uL (3.98-10.04)
--- NOTE | 2024-12-06 12:34 | ERPHSYRPT ---
- History of Present Illness Time Seen by Provider: 12/06/24 12:20 Source: patient Patient Subjective Stated Complaint: Cough Triage Nursing Assessment: Patient brought into ED per w/c and transferred to bed per self. Patient A+O X 3. Patient's skin flushed and diaphoretic. Patient complains of non productive cough, N/V, diarrhea, headaches body aches, fever as high as 104.1 for 2 weeks. Patient's lung clear a/p abdoul. Patient complains of headache, bodyaches 5/10 and occasional CP when coughing. Physician History: 59yo f pmhx afib, DM2 presents via private vehicle for 2wks of fatigue, shortness of breath w/ exertion, elevated HR > 120s. Pt reports she takes aspirin daily, does not take a blood thinner, states she has refused when her internet marketing consultant recommended it. Pt sees Dr Ospina in [place]. Pt denies any significant chest pain, does endorse a cough that is worse w/ exertion. Pt reports some intermittent fevers last week. Pt reports some associated mild dizziness intermittently as well. Pt denies any recent travel or recent changes in medication. Allergies/Adverse Reactions: codeine [Codeine] Allergy (Mild, Verified 12/06/24 12:00) flu vaccine 2010- *RETIRED-02/04/13 [flu vaccine [id number] (3 yr +)] Allergy (Mild, Verified 12/06/24 12:00) pneumococcal vaccine Allergy (Verified 12/06/24 12:00) trovafloxacin [Trovafloxacin] Allergy (Verified 12/06/24 12:00) duloxetine HCl [From Cymbalta] Adverse Reaction (Verified 12/06/24 12:00) hydrocodone bitartrate [From [place]] Adverse Reaction (Verified 12/06/24 12:00) milnacipran HCl [From [place]] Adverse Reaction (Verified 12/06/24 12:00) Home Medications: Metformin HCl 1,000 mg PO BID 12/30/15 [History] Citalopram Hydrobromide 20 mg* [ceLEXa 20 MG] 20 mg PO DAILY 08/13/16 [History] Metoprolol Tartrate 25 mg [Lopressor 25MG Tab] 50 mg PO BID 08/18/16 [History] Gabapentin 600 mg PO HS 06/13/17 [History] Albuterol 2.5 mg/3 ml Neb [Proventil 2.5 mg/3 ml Neb] 2.5 mg QID 07/08/17 [History] Glipizide 5 mg [Glucotrol 5 MG] 5 mg PO DAILY 12/06/20 [History] Tizanidine HCl 2 mg PO BID 12/06/20 [History] Amlodipine Besylate 5 mg [Norvasc 5 mg] 5 mg PO DAILY 10/31/21 [History] Bumetanide 1 mg PO UD 10/31/21 [History] Dicyclomine HCl 10 mg PO QID 10/31/21 [History] Nitroglycerin [Nitrostat] 0.3 mg SL UD 10/31/21 [History] Omeprazole 20 mg PO DAILY 10/31/21 [History] Acetaminophen [Tylenol Extra Strength] 2 tab PO Q4H PRN 11/03/21 [History] Hx Tetanus, Diphtheria Vaccination/Date Given: Yes (2013) Hx Influenza Vaccination/Date Given: No Hx Pneumococcal Vaccination/Date Given: No Immunizations Up to Date: Yes Travel Risk - International Travel Have you traveled outside of the country in past 3 weeks: No - Emerging Infectious Disease Are you exhibiting symptoms associated with any current EIDs: Yes Symptoms: Diarrhea, Fever, Headaches/Body Aches/, Shortness of Breath, Vomitting - Review of Systems Constitutional: Fever, Chills Respiratory: Cough, Dyspnea, Dyspnea on Exertion ([place]) Cardiac: No Symptoms Abdominal/Gastrointestinal: Diarrhea - Past Medical History Pertinent Past Medical History: Yes Neurological History: Migraines, Stroke ENT History: No Pertinent History Cardiac History: Myocardial Infarction ([place]), Hypertension, Other Respiratory History: Asthma Endocrine Medical History: Diabetes Type II Musculoskeletal History: Arthritis, Osteoarthritis, Osteoporosis, Fibromyalgia GI Medical History: Hernia, GERD History: No Pertinent History Psycho-Social History: Depression, Anxiety Female Reproductive Disorders: Endometriosis Other Medical History: fatty liver - Past Surgical History Past Surgical History: Yes Neuro Surgical History: No Pertinent History Cardiac: Cardiac Catheterization Respiratory: No Pertinent History Gastrointestinal: Cholecystectomy, Hernia Repair, Other Genitourinary: No Pertinent History Musculoskeletal: Orthopedic Surgery Female Surgical History: Hysterectomy, Tubal Ligation, Section Other Surgical History: LEFT ANKLE SURGERY, skin tumor posterior right arm, left index finger 12 abdominal hernia repairs. soft tissue mass removed from foot., plantar fasciatis surgery. Significant Family History: heart disease, hypertension - Social History Smoking Status: Former smoker How long have you smoked: 30 Exposure to second hand smoke: No Drug Use: none - Social Determinants of Health Will the patient participate in the screening: Yes Do you worry about a steady place to live?: No Do you have any problems with any of the following?: No known problems In the past 12 months,have you had to go without utilities?: No Transportation Issues: No Has anyone in your support network made you feel unsafe?: No Have you or anyone in your house had to go w/o enough food: No - Nursing Vital Signs Nursing Vital Signs: Initial Vital Signs Temperature 97.5 F 12/06/24 12:02 Pulse Rate 141 H 12/06/24 12:02 Respiratory Rate 30 H 12/06/24 12:02 Blood Pressure 130/76 12/06/24 12:02 O2 Sat by Pulse Oximetry 96 12/06/24 12:02 Pain Scale Pain Intensity 3 - Physical Exam General Appearance: mild distress, alert Respiratory Exam: normal breath sounds, lungs clear, airway intact, No chest tenderness, No respiratory distress Cardiovascular Exam: tachycardia, irregular, No edema, No pulse deficit Gastrointestinal/Abdomen Exam: soft, No tenderness, No distention Neurologic Exam: alert, oriented x 3, cooperative Skin Exam: normal color, warm, dry SpO2 Interpretation: normal SpO2: 97 O2 Delivery: Room Air - Course EKG Interpreted by Me: RATE (145), A-fib (Afib with RVR), Non-specific ST Changes (not suggestive of acute ischemia) Ordered Tests: Active Orders 24 hr Category Date Time Status EKG-ER Only STAT Care 12/06/24 12:20 Active Observation [Place in Observation] ROUTINE Care 12/06/24 18:21 Active Oxygen-ED Only Nasal Cannula 2 lpm Care 12/06/24 13:33 Active CHEST 2 VIEWS (PA AND LAT) Stat Exams 12/06/24 12:21 Completed BLOOD CULTURE Stat Lab 12/06/24 12:52 Received CBC W DIFF Stat Lab 12/06/24 12:28 Completed CMP Stat Lab 12/06/24 12:28 Completed CULTURE,URINE Stat Lab 12/06/24 13:37 Received Lactic Acid Stat Lab 12/06/24 12:50 Completed Lactic Acid Stat Lab 12/06/24 14:55 Completed Manual Differential NC Stat Lab 12/06/24 12:28 Completed TROPONIN Q4H Lab 12/06/24 15:22 Completed TROPONIN Q4H Lab 12/06/24 19:16 Received TROPONIN Q4H Lab 12/06/24 23:15 Ordered UA W/RFX UR CULTURE Stat Lab 12/06/24 13:37 Completed Urine Triage Profile Stat Lab 12/06/24 13:37 Completed Transfer Order Routine Transfer 12/06/24 Ordered Medication Summary Generic Name Dose Route Start Last Admin Trade Name Freq PRN Reason Stop Dose Admin Enoxaparin Sodium 120 mg 12/06/24 13:45 12/06/24 13:55 Enoxaparin Sodium 120 Mg/0.8 Ml Syringe SQ 01/05/25 13:44 120 mg Q12H SJ Administration Diltiazem HCl 100 mls @ 5 mls/hr 12/06/24 13:40 12/06/24 14:52 Cardizem Drip 100 Mg/100 Ml D5w IV 01/05/25 13:39 10 mg/hr .Q20H PRN 10 mls/hr HEART RATE/ A-FIB Titration Protocol 5 MG/HR Discontinued Medications Generic Name Dose Route Start Last Admin Trade Name Freq PRN Reason Stop Dose Admin Diltiazem HCl 10 mg 12/06/24 13:40 12/06/24 13:55 Diltiazem Hcl Iv 5 Mg/Ml Vial IV 12/06/24 13:41 10 mg STAT ONE Administration Diltiazem HCl Confirm 12/06/24 13:51 Diltiazem Hcl Iv 5 Mg/Ml Vial Administered 12/06/24 13:52 Dose 50 mg IV .STK-MED ONE Sodium Chloride 1,000 mls @ 999 mls/hr 12/06/24 12:20 12/06/24 13:30 Sodium Chloride 0.9% 1000 Ml IV 12/06/24 13:20 Infused .Q1H1M STA Infusion Sodium Chloride Confirm 12/06/24 12:27 Sodium Chloride 0.9% 1000 Ml Administered 12/06/24 12:28 Dose 1,000 mls @ ud .ROUTE .STK-MED ONE Ceftriaxone Sodium 1 gm in 100 mls @ 200 mls/hr 12/06/24 15:30 12/06/24 19:24 Rocephin 1 Gm / 100 Ml Nacl IV 12/06/24 15:59 200 mls/hr STAT ONE Infusion Ceftriaxone Sodium Confirm 12/06/24 15:50 Rocephin 1 Gm / 100 Ml Nacl Administered 12/06/24 15:51 Dose 1 gm in 100 mls @ ud IV .STK-MED ONE Ondansetron HCl 4 mg 12/06/24 12:20 12/06/24 12:28 Ondansetron Hcl 4 Mg/2 Ml Vial IV 12/06/24 12:21 4 mg STAT ONE Administration Ondansetron HCl Confirm 12/06/24 12:27 Ondansetron Hcl 4 Mg/2 Ml Vial Administered 12/06/24 12:28 Dose 4 mg .ROUTE .STK-MED ONE Lab/Rad Data: Laboratory Result Diagrams 12/06/24 12:28 12/06/24 12:28 Laboratory Results 12/06/24 12/06/24 12/06/24 Range/Units 15:22 14:55 13:37 WBC (3.98-10.04) x10^3/uL RBC (3.93-5.22) x10^6/uL Hgb (11.2-15.7) g/dL Hct (34.1-44.9) % MCV (79.4-94.8) fL MCH (25.6-32.2) pg MCHC (32.2-35.5) g/dL RDW (11.7-14.4) % Plt Count (182-369) x10^3/uL MPV (9.4-12.3) fL Segmented Neutrophils (34.0-71.1) % Lymphocytes (Manual) (19.3-51.7) % Monocytes (Manual) (4.7-12.5) % Platelet Estimate (NORMAL) RBC Morphology Sodium (135-145) mmol/L Potassium (3.5-5.1) mmol/L Chloride (98-107) mmol/L Carbon Dioxide (22-30) mmol/L Anion Gap (5-15) MEQ/L BUN (7-17) mg/dL Creatinine (0.52-1.04) mg/dL Estimated GFR ML/MIN Glucose (74-106) mg/dL Lactic Acid 2.1 H (0.4-2.0) Calcium (8.4-10.2) mg/dL Total Bilirubin (0.2-1.3) mg/dL AST (14-36) U/L ALT (0-35) U/L Alkaline Phosphatase (38-126) U/L Troponin I < 0.012 (0.000-0.033) ng/mL Serum Total Protein (6.3-8.2) g/dL Albumin (3.5-5.0) g/dL Urine Color (Yellow) Urine Appearance (Clear) Urine pH (4.6-8.0) Ur Specific [place] (1.005-1.030) Urine Protein (Negative) Urine Glucose (UA) (Negative) mg/dL Urine Ketones (Negative) Urine Blood (Negative) Urine Nitrite (Negative) Urine Bilirubin (Negative) Urine Urobilinogen (0.2) mg/dL Ur Leukocyte Esterase (Negative) U Hyaline Cast (Auto) (0-2) /LPF Urine Microscopic RBC (0-5) /HPF Urine Microscopic WBC (0-5) /HPF Ur Epithelial Cells (None Seen) /HPF Urine Bacteria (None Seen) /HPF Urine Mucus (NEGATIVE) /HPF Urine Culture Reflexed (NO) Urine Opiates Level NEGATIVE (NEGATIVE) Ur Methadone NEGATIVE (NEGATIVE) Urine Barbiturates NEGATIVE (NEGATIVE) Ur Phencyclidine (PCP) NEGATIVE (NEGATIVE) Urine Amphetamine NEGATIVE (NEGATIVE) U Benzodiazepine Level NEGATIVE (NEGATIVE) Urine Cocaine NEGATIVE (NEGATIVE) Urine Marijuana (THC) NEGATIVE (NEGATIVE) Influenza Type A Ag (NEGATIVE) Influenza Type B Ag (NEGATIVE) RSV (PCR) (NEGATIVE) SARS-CoV-2 (PCR) (NEGATIVE) 12/06/24 12/06/24 12/06/24 Range/Units 13:37 12:50 12:28 WBC (3.98-10.04) x10^3/uL RBC (3.93-5.22) x10^6/uL Hgb (11.2-15.7) g/dL Hct (34.1-44.9) % MCV (79.4-94.8) fL MCH (25.6-32.2) pg MCHC (32.2-35.5) g/dL RDW (11.7-14.4) % Plt Count (182-369) x10^3/uL MPV (9.4-12.3) fL Segmented Neutrophils (34.0-71.1) % Lymphocytes (Manual) (19.3-51.7) % Monocytes (Manual) (4.7-12.5) % Platelet Estimate (NORMAL) RBC Morphology Sodium (135-145) mmol/L Potassium (3.5-5.1) mmol/L Chloride (98-107) mmol/L Carbon Dioxide (22-30) mmol/L Anion Gap (5-15) MEQ/L BUN (7-17) mg/dL Creatinine (0.52-1.04) mg/dL Estimated GFR ML/MIN Glucose (74-106) mg/dL Lactic Acid 3.7 H (0.4-2.0) Calcium (8.4-10.2) mg/dL Total Bilirubin (0.2-1.3) mg/dL AST (14-36) U/L ALT (0-35) U/L Alkaline Phosphatase (38-126) U/L Troponin I (0.000-0.033) ng/mL Serum Total Protein (6.3-8.2) g/dL Albumin (3.5-5.0) g/dL Urine Color Yellow (Yellow) Urine Appearance Clear (Clear) Urine pH 5.0 (4.6-8.0) Ur Specific [place] 1.020 (1.005-1.030) Urine Protein 30 (Negative) Urine Glucose (UA) 250 A (Negative) mg/dL Urine Ketones Trace A (Negative) Urine Blood Negative (Negative) Urine Nitrite Negative (Negative) Urine Bilirubin Negative (Negative) Urine Urobilinogen 0.2 (0.2) mg/dL Ur Leukocyte Esterase Small A (Negative) U Hyaline Cast (Auto) 3-5 A (0-2) /LPF Urine Microscopic RBC 0-2 (0-5) /HPF Urine Microscopic WBC 6-10 A (0-5) /HPF Ur Epithelial Cells Rare (None Seen) /HPF Urine Bacteria Many A (None Seen) /HPF Urine Mucus Few A (NEGATIVE) /HPF Urine Culture Reflexed YES (NO) Urine Opiates Level (NEGATIVE) Ur Methadone (NEGATIVE) Urine Barbiturates (NEGATIVE) Ur Phencyclidine (PCP) (NEGATIVE) Urine Amphetamine (NEGATIVE) U Benzodiazepine Level (NEGATIVE) Urine Cocaine (NEGATIVE) Urine Marijuana (THC) (NEGATIVE) Influenza Type A Ag NEGATIVE (NEGATIVE) Influenza Type B Ag NEGATIVE (NEGATIVE) RSV (PCR) NEGATIVE (NEGATIVE) SARS-CoV-2 (PCR) NEGATIVE (NEGATIVE) 12/06/24 12/06/24 Range/Units 12:28 12:28 WBC 9.3 (3.98-10.04) x10^3/uL RBC 4.65 (3.93-5.22) x10^6/uL Hgb 12.7 (11.2-15.7) g/dL Hct 37.9 (34.1-44.9) % MCV 81.5 (79.4-94.8) fL MCH 27.3 (25.6-32.2) pg MCHC 33.5 (32.2-35.5) g/dL RDW 13.8 (11.7-14.4) % Plt Count 350 (182-369) x10^3/uL MPV 9.9 (9.4-12.3) fL Segmented Neutrophils 78 H (34.0-71.1) % Lymphocytes (Manual) 19 L (19.3-51.7) % Monocytes (Manual) 3 L (4.7-12.5) % Platelet Estimate NORMAL (NORMAL) RBC Morphology NORMAL Sodium 135 (135-145) mmol/L Potassium 3.4 L (3.5-5.1) mmol/L Chloride 98 (98-107) mmol/L Carbon Dioxide 17 L (22-30) mmol/L Anion Gap 22.9 H (5-15) MEQ/L BUN 28 H (7-17) mg/dL Creatinine 1.02 (0.52-1.04) mg/dL Estimated GFR 64.2 ML/MIN Glucose 318 H (74-106) mg/dL Lactic Acid (0.4-2.0) Calcium 9.3 (8.4-10.2) mg/dL Total Bilirubin 1.30 (0.2-1.3) mg/dL AST 36 (14-36) U/L ALT 34 (0-35) U/L Alkaline Phosphatase 104 (38-126) U/L Troponin I (0.000-0.033) ng/mL Serum Total Protein 8.2 (6.3-8.2) g/dL Albumin 4.4 (3.5-5.0) g/dL Urine Color (Yellow) Urine Appearance (Clear) Urine pH (4.6-8.0) Ur Specific [place] (1.005-1.030) Urine Protein (Negative) Urine Glucose (UA) (Negative) mg/dL Urine Ketones (Negative) Urine Blood (Negative) Urine Nitrite (Negative) Urine Bilirubin (Negative) Urine Urobilinogen (0.2) mg/dL Ur Leukocyte Esterase (Negative) U Hyaline Cast (Auto) (0-2) /LPF Urine Microscopic RBC (0-5) /HPF Urine Microscopic WBC (0-5) /HPF Ur Epithelial Cells (None Seen) /HPF Urine Bacteria (None Seen) /HPF Urine Mucus (NEGATIVE) /HPF Urine Culture Reflexed (NO) Urine Opiates Level (NEGATIVE) Ur Methadone (NEGATIVE) Urine Barbiturates (NEGATIVE) Ur Phencyclidine (PCP) (NEGATIVE) Urine Amphetamine (NEGATIVE) U Benzodiazepine Level (NEGATIVE) Urine Cocaine (NEGATIVE) Urine Marijuana (THC) (NEGATIVE) Influenza Type A Ag (NEGATIVE) Influenza Type B Ag (NEGATIVE) RSV (PCR) (NEGATIVE) SARS-CoV-2 (PCR) (NEGATIVE) - Progress Progress: re-examined Air Movement: fair Progress Note: 12/06/24 14:52 pt was started on diltiazem drip for afib rvr into 150s given 10mg bolus IV, drip at 5mg pt continues to have rate into 120s will increase to 10mg 12/06/24 14:54 pt continues to be mildly symptomatic w/ some continued sob 12/06/24 16:51 i spoke w/ hospitalist Dr Kirby regarding admission to ICU for continued rate control via dilt drip, she is willing to accept Blood Culture(s) Obtained: Yes Antibiotics given: Yes Will see patient in: hospital (observation) Counseled pt/family regarding: lab results, diagnosis, need for follow-up, rad results Medical Desision Making - Diagnostic Testing Diagnostic test were ordered, analyzed, and reviewed by me: Yes Radiological Interpretation: Interpreted by me, Reviewed by me - Risk of complications The pt has a high risk of morbidity or mortality based on: Decision regarding hospitilization or escalation of hosp level of care - Departure Departure Disposition: Observation Clinical Impression: Atrial fibrillation with RVR UTI (urinary tract infection) Qualifiers: Urinary tract infection type: acute cystitis Hematuria presence: without hematuria Qualified Code(s): N30.00 - Acute cystitis without hematuria Condition: Fair Critical Care Time: Yes Critical Care Time(excluding separately billable procedures): Critical 30-74 mins Referrals: LILIANA SANCHEZ MD [Primary Care Provider] - Follow up/PCP as directed
[2024-12-06 12:45] LABS: ALBUMIN 4.4 g/dL (3.5-5.0); ANION GAP 22.9 MEQ/L (5-15); BILIRUBIN,TOTAL 1.3 mg/dL (0.2-1.3); Calcium 9.3 mg/dL (8.4-10.2); Creatinine 1 1.02 mg/dL (0.52-1.04); EST GLOMERULAR FILTRATION RATE 64.2 ML/MIN; Potassium 3.4 mmol/L (3.5-5.1); Total Protein 8.2 g/dL (6.3-8.2)
[2024-12-06 13:08] LABS: INFLUENZA A NEGATIVE (NEGATIVE); INFLUENZA B NEGATIVE (NEGATIVE); RESPIRATORY SYNCTIAL VIRUS NEGATIVE (NEGATIVE); SARS-CoV-2 Xpert Express NEGATIVE (NEGATIVE)
[2024-12-06] MEDS ORDERED: Cardizem IV 50 MG/10 ML IV ONE (13:51)
[2024-12-06] MEDS ORDERED: ENOXAPARIN SODIUM SQ ONE (13:51)
[2024-12-06] MEDS: ENOXAPARIN SODIUM SQ SCH (13:55)
[2024-12-06] MEDS: Cardizem IV 50 MG/10 ML IV ONE (13:55)
[2024-12-06 13:57] LABS: Appearance Clear (Clear); Bilirubin Negative (Negative); Blood Negative (Negative); Epithelial Cells Rare /HPF (None Seen); Glucose, Urine 250 mg/dL (Negative); Ketones Trace (Negative); Leukocyte Esterase Small (Negative); Nitrite Negative (Negative); Protein,Urine Dip 30 (Negative); RBC 0-2 /HPF (0-5); Urobilinogen 0.2 mg/dL (0.2)
[2024-12-06] MEDS: CARDIZEM DRIP 100 MG/100 ML D5W 100 ML IV PRN (13:57)
[2024-12-06 14:04] LABS: Amphetamine,Urine NEGATIVE (NEGATIVE); Barbiturate,Urine NEGATIVE (NEGATIVE); Benzodiazepine,Urine NEGATIVE (NEGATIVE); Cocaine,Urine NEGATIVE (NEGATIVE); Methadone,Urine NEGATIVE (NEGATIVE); Opiate,Urine NEGATIVE (NEGATIVE); PCP,Urine NEGATIVE (NEGATIVE); THC,Urine NEGATIVE (NEGATIVE)
[2024-12-06 14:10] LABS: Bacteria Many /HPF (None Seen); Mucus Few /HPF (NEGATIVE)
[2024-12-06 14:17] LABS: Lymphocytes 19 % (19.3-51.7); Monocyte 3 % (4.7-12.5); Neutrophils 78 % (34.0-71.1); Total Cells Counted 100
[2024-12-06 14:19] LABS: Platelet Estimate NORMAL (NORMAL)
[2024-12-06] MEDS ORDERED: ROCEPHIN 1 GM / 100 ML NaCl 1 GM/100 ML IVPB IV ONE (15:50)
[2024-12-06] MEDS: ROCEPHIN 1 GM / 100 ML NaCl 1 GM/100 ML IVPB IV ONE (15:53)
--- NOTE | 2024-12-06 19:07 | XRAY ---
Indication: Cough. Short of breath. Comparison: February 20, 2021 PA/lateral chest again hyperinflated with now minimal lingula subsegmental atelectasis/scarring. Remaining heart and lungs unremarkable. Bony thorax intact again with mild degenerative changes.
--- NOTE | 2024-12-06 21:59 | PCM.HP ---
History of Present Illness - Chief Complaint Chief Complaint: afib RVR, UTI Date: 12/06/24 History of Present Illness: Ms. EDUARDO is a 59 year old female with a past medical history significant for hypertension, hyperlipidemia, diabetes and previous history of tachycardia requiring a holter who presents to the hospital with complaints of fever up to 104, chills and nonproductive cough. She has not been eating/drinking as normal and upon arrival, she was found to be tachycardic with heart rates in the 120- 150s, requiring cardizem drip. Her labs were notable for a potassium of 3.4 and creatinine 1.1. She does take hctz daily and uses bumex prn. She is resting in b ed, awake/alert. No current fever/chills. No chest pain or shortness of breath. No nausea, vomiting or diarrhea. No dysuria, hematuria or urgency. - Review of Systems All Other Systems: Reviewed and Negative Medications & Allergies Home Medications: Home Medication List Metformin HCl 1,000 mg PO BID 12/30/15 [History Confirmed 12/06/24] Citalopram Hydrobromide 20 mg* [ceLEXa 20 MG] 20 mg PO DAILY 08/13/16 [History Confirmed 12/06/24] Metoprolol Tartrate 25 mg [Lopressor 25MG Tab] 75 mg PO BID 08/18/16 [ History Confirmed 12/06/24] Albuterol 2.5 mg/3 ml Neb [Proventil 2.5 mg/3 ml Neb] 2.5 mg QID 07/08/17 [History Confirmed 12/06/24] Albuterol 8 gm Mdi Hfa [Ventolin Hfa MDI] 90 mcg IH Q4H PRN #1 [id number].aer.[id number] 10/25/19 [Rx Confirmed 12/06/24] Glipizide 5 mg [Glucotrol 5 MG] 5 mg PO DAILY 12/06/20 [History Confirmed 12/06/24] Bumetanide 1 mg PO UD PRN 10/31/21 [History Confirmed 12/06/24] Dicyclomine HCl 10 mg PO BID 10/31/21 [History Confirmed 12/06/24] Nitroglycerin [Nitrostat] 0.3 mg SL UD PRN 10/31/21 [History Confirmed 12/06/24] Omeprazole 20 mg PO DAILY 10/31/21 [History Confirmed 12/06/24] Acetaminophen [Tylenol Extra Strength] 2 tab PO Q4H PRN 11/03/21 [History Confirmed 12/06/24] Amlodipine Besylate [Norvasc] 10 mg PO DAILY 12/06/24 [History Confirmed 12/06/24] Oxycodone HCl/Acetaminophen [Oxycodone-Acetaminophen 5-325] 1 tab PO TID PRN 12/06/24 [History Confirmed 12/06/24] Pregabalin 50 mg [Lyrica 50MG] 100 mg PO BID 12/06/24 [History Confirmed 12/06/24] Semaglutide [Ozempic] 2 mg SQ WEEKLY 12/06/24 [History Confirmed 12/06/24] hydroCHLOROthiazide [Hydrochlorothiazide] 25 mg PO DAILY 12/06/24 [History Confirmed 12/06/24] Allergies/Adverse Reactions: Allergies Allergy/AdvReac Type Severity Reaction Status Date / Time codeine [Codeine] Allergy Mild Verified 12/06/24 12:00 flu vaccine 2010- Allergy Mild Verified 12/06/24 12:00 *RETIRED-02/04/13 [flu vaccine [id number] (3 yr +)] pneumococcal vaccine Allergy Verified 12/06/24 12:00 trovafloxacin [Trovafloxacin] Allergy Verified 12/06/24 12:00 duloxetine HCl AdvReac Verified 12/06/24 12:00 [From Cymbalta] hydrocodone bitartrate AdvReac Verified 12/06/24 12:00 [From Quanah] milnacipran HCl AdvReac Verified 12/06/24 12:00 [From Savella] - Past Medical History Past Medical History: Yes Neurological History: Migraines, Stroke ENT History: No Pertinent History Cardiac History: Myocardial Infarction ([place]), Hypertension Respiratory History: Asthma Endocrine Medical History: Diabetes Type II Musculoskelatal History: Arthritis, Fibromyalgia, Osteoarthritis, Osteoporosis, Rheumatoid Arthritis GI Medical History: Hernia, GERD History: No Pertinent History Pyscho-Social History: Depression, Anxiety Reproductive Disorders: Endometriosis Comment: fatty liver - Past Surgical History Past Surgical History: Yes Neuro Surgical History: No Pertinent History Cardiac History: Cardiac Catheterization Respiratory Surgery: No Pertinent History GI Surgical History: Cholecystectomy, Hernia Repair, Other Genitourinary Surgical Hx: No Pertinent History Musculskeletal Surgical Hx: Orthopedic Surgery Female Surgical History: Hysterectomy, Tubal Ligation, Section Other Surgical History: LEFT ANKLE SURGERY, skin tumor posterior right arm, left index finger, 12 abdominal hernia repairs. soft tissue mass removed from OLY feet plantar fasciatis surgery. Significant Family History: heart disease, hypertension - Social History Smoking Status: Former smoker How long have you smoked: 30 Exposure to second hand smoke: No Alcohol: None Drug Use: none - Social Determinants of Health Will the patient participate in the screening: Yes Do you worry about a steady place to live?: No Do you have any problems with any of the following?: No known problems In the past 12 months,have you had to go without utilities?: No Have you or anyone in your house had to go without enough: No Transportation Issues: No Has anyone in your support network made you feel unsafe?: No Does the patient want assistance with any of the above?: No - Physical Exam Vital Signs: Vital Signs - 24 hr Temp Pulse Resp BP BP Pulse Ox 12/06/24 20:00 97.5 F 106 H 23 104/65 93 L 12/06/24 19:50 97.5 F 109 H 16 121/64 121/64 93 L 12/06/24 19:34 97 12/06/24 19:20 110 H 18 12/06/24 19:12 121 H 20 12/06/24 19:00 112 H 17 118/88 95 12/06/24 18:10 101 H 17 121/79 96 12/06/24 18:00 111 H 15 127/89 12/06/24 17:50 104 H 16 124/76 96 12/06/24 17:40 115 H 19 124/78 95 12/06/24 17:30 104 H 18 123/73 12/06/24 17:20 99 H 17 114/70 95 12/06/24 17:10 96 H 17 126/89 12/06/24 17:00 106 H 17 107/75 94 L 12/06/24 16:50 109 H 15 132/100 12/06/24 16:40 109 H 20 120/80 12/06/24 16:30 106 H 18 124/69 94 L 12/06/24 16:22 132 H 28 H 12/06/24 16:00 106 H 21 113/80 96 12/06/24 15:00 122 H 16 117/71 96 12/06/24 14:52 111 H 20 134/65 12/06/24 14:00 110 H 29 H 129/81 95 12/06/24 13:57 126 H 19 108/73 12/06/24 13:29 128 H 18 120/92 12/06/24 12:34 133 H 29 H 104/88 96 12/06/24 12:06 146 H 20 130/76 97 12/06/24 12:02 97.5 F 141 H 30 H 130/76 97 General Appearance: no apparent distress Neurologic Exam: alert, cooperative Ears, Nose, Throat Exam: dry mucous membranes Neck Exam: supple Respiratory Exam: No respiratory distress Cardiovascular Exam: regular rate/rhythm Gastrointestinal/Abdomen Exam: soft Extremity Exam: No pedal edema, No swelling Skin Exam: normal color, No rash Results - Labs Lab/Micro Results: Lab Results-Last 24 Hours 12/06/24 12/06/24 12/06/24 Range/Units 12:28 12:28 12:28 WBC 9.3 (3.98-10.04) x10^3/uL RBC 4.65 (3.93-5.22) x10^6/uL Hgb 12.7 (11.2-15.7) g/dL Hct 37.9 (34.1-44.9) % MCV 81.5 (79.4-94.8) fL MCH 27.3 (25.6-32.2) pg MCHC 33.5 (32.2-35.5) g/dL RDW 13.8 (11.7-14.4) % Plt Count 350 (182-369) x10^3/uL MPV 9.9 (9.4-12.3) fL Segmented Neutrophils 78 H (34.0-71.1) % Lymphocytes (Manual) 19 L (19.3-51.7) % Monocytes (Manual) 3 L (4.7-12.5) % Platelet Estimate NORMAL (NORMAL) RBC Morphology NORMAL Sodium 135 (135-145) mmol/L Potassium 3.4 L (3.5-5.1) mmol/L Chloride 98 (98-107) mmol/L Carbon Dioxide 17 L (22-30) mmol/L Anion Gap 22.9 H (5-15) MEQ/L BUN 28 H (7-17) mg/dL Creatinine 1.02 (0.52-1.04) mg/dL Estimated GFR 64.2 ML/MIN Glucose 318 H (74-106) mg/dL POC Glucometer (74 to 106) mg/dL Lactic Acid (0.4-2.0) Calcium 9.3 (8.4-10.2) mg/dL Total Bilirubin 1.30 (0.2-1.3) mg/dL AST 36 (14-36) U/L ALT 34 (0-35) U/L Alkaline Phosphatase 104 (38-126) U/L Troponin I (0.000-0.033) ng/mL Serum Total Protein 8.2 (6.3-8.2) g/dL Albumin 4.4 (3.5-5.0) g/dL Urine Color (Yellow) Urine Appearance (Clear) Urine pH (4.6-8.0) Ur Specific [place] (1.005-1.030) Urine Protein (Negative) Urine Glucose (UA) (Negative) mg/dL Urine Ketones (Negative) Urine Blood (Negative) Urine Nitrite (Negative) Urine Bilirubin (Negative) Urine Urobilinogen (0.2) mg/dL Ur Leukocyte Esterase (Negative) U Hyaline Cast (Auto) (0-2) /LPF Urine Microscopic RBC (0-5) /HPF Urine Microscopic WBC (0-5) /HPF Ur Epithelial Cells (None Seen) /HPF Urine Bacteria (None Seen) /HPF Urine Mucus (NEGATIVE) /HPF Urine Culture Reflexed (NO) Urine Opiates Level (NEGATIVE) Ur Methadone (NEGATIVE) Urine Barbiturates (NEGATIVE) Ur Phencyclidine (PCP) (NEGATIVE) Urine Amphetamine (NEGATIVE) U Benzodiazepine Level (NEGATIVE) Urine Cocaine (NEGATIVE) Urine Marijuana (THC) (NEGATIVE) Influenza Type A Ag NEGATIVE (NEGATIVE) Influenza Type B Ag NEGATIVE (NEGATIVE) RSV (PCR) NEGATIVE (NEGATIVE) SARS-CoV-2 (PCR) NEGATIVE (NEGATIVE) 12/06/24 12/06/24 12/06/24 Range/Units 12:50 13:37 13:37 WBC (3.98-10.04) x10^3/uL RBC (3.93-5.22) x10^6/uL Hgb (11.2-15.7) g/dL Hct (34.1-44.9) % MCV (79.4-94.8) fL MCH (25.6-32.2) pg MCHC (32.2-35.5) g/dL RDW (11.7-14.4) % Plt Count (182-369) x10^3/uL MPV (9.4-12.3) fL Segmented Neutrophils (34.0-71.1) % Lymphocytes (Manual) (19.3-51.7) % Monocytes (Manual) (4.7-12.5) % Platelet Estimate (NORMAL) RBC Morphology Sodium (135-145) mmol/L Potassium (3.5-5.1) mmol/L Chloride (98-107) mmol/L Carbon Dioxide (22-30) mmol/L Anion Gap (5-15) MEQ/L BUN (7-17) mg/dL Creatinine (0.52-1.04) mg/dL Estimated GFR ML/MIN Glucose (74-106) mg/dL POC Glucometer (74 to 106) mg/dL Lactic Acid 3.7 H (0.4-2.0) Calcium (8.4-10.2) mg/dL Total Bilirubin (0.2-1.3) mg/dL AST (14-36) U/L ALT (0-35) U/L Alkaline Phosphatase (38-126) U/L Troponin I (0.000-0.033) ng/mL Serum Total Protein (6.3-8.2) g/dL Albumin (3.5-5.0) g/dL Urine Color Yellow (Yellow) Urine Appearance Clear (Clear) Urine pH 5.0 (4.6-8.0) Ur Specific [place] 1.020 (1.005-1.030) Urine Protein 30 (Negative) Urine Glucose (UA) 250 A (Negative) mg/dL Urine Ketones Trace A (Negative) Urine Blood Negative (Negative) Urine Nitrite Negative (Negative) Urine Bilirubin Negative (Negative) Urine Urobilinogen 0.2 (0.2) mg/dL Ur Leukocyte Esterase Small A (Negative) U Hyaline Cast (Auto) 3-5 A (0-2) /LPF Urine Microscopic RBC 0-2 (0-5) /HPF Urine Microscopic WBC 6-10 A (0-5) /HPF Ur Epithelial Cells Rare (None Seen) /HPF Urine Bacteria Many A (None Seen) /HPF Urine Mucus Few A (NEGATIVE) /HPF Urine Culture Reflexed YES (NO) Urine Opiates Level NEGATIVE (NEGATIVE) Ur Methadone NEGATIVE (NEGATIVE) Urine Barbiturates NEGATIVE (NEGATIVE) Ur Phencyclidine (PCP) NEGATIVE (NEGATIVE) Urine Amphetamine NEGATIVE (NEGATIVE) U Benzodiazepine Level NEGATIVE (NEGATIVE) Urine Cocaine NEGATIVE (NEGATIVE) Urine Marijuana (THC) NEGATIVE (NEGATIVE) Influenza Type A Ag (NEGATIVE) Influenza Type B Ag (NEGATIVE) RSV (PCR) (NEGATIVE) SARS-CoV-2 (PCR) (NEGATIVE) 12/06/24 12/06/24 12/06/24 Range/Units 14:55 15:22 19:16 WBC (3.98-10.04) x10^3/uL RBC (3.93-5.22) x10^6/uL Hgb (11.2-15.7) g/dL Hct (34.1-44.9) % MCV (79.4-94.8) fL MCH (25.6-32.2) pg MCHC (32.2-35.5) g/dL RDW (11.7-14.4) % Plt Count (182-369) x10^3/uL MPV (9.4-12.3) fL Segmented Neutrophils (34.0-71.1) % Lymphocytes (Manual) (19.3-51.7) % Monocytes (Manual) (4.7-12.5) % Platelet Estimate (NORMAL) RBC Morphology Sodium (135-145) mmol/L Potassium (3.5-5.1) mmol/L Chloride (98-107) mmol/L Carbon Dioxide (22-30) mmol/L Anion Gap (5-15) MEQ/L BUN (7-17) mg/dL Creatinine (0.52-1.04) mg/dL Estimated GFR ML/MIN Glucose (74-106) mg/dL POC Glucometer (74 to 106) mg/dL Lactic Acid 2.1 H (0.4-2.0) Calcium (8.4-10.2) mg/dL Total Bilirubin (0.2-1.3) mg/dL AST (14-36) U/L ALT (0-35) U/L Alkaline Phosphatase (38-126) U/L Troponin I < 0.012 < 0.012 (0.000-0.033) ng/mL Serum Total Protein (6.3-8.2) g/dL Albumin (3.5-5.0) g/dL Urine Color (Yellow) Urine Appearance (Clear) Urine pH (4.6-8.0) Ur Specific [place] (1.005-1.030) Urine Protein (Negative) Urine Glucose (UA) (Negative) mg/dL Urine Ketones (Negative) Urine Blood (Negative) Urine Nitrite (Negative) Urine Bilirubin (Negative) Urine Urobilinogen (0.2) mg/dL Ur Leukocyte Esterase (Negative) U Hyaline Cast (Auto) (0-2) /LPF Urine Microscopic RBC (0-5) /HPF Urine Microscopic WBC (0-5) /HPF Ur Epithelial Cells (None Seen) /HPF Urine Bacteria (None Seen) /HPF Urine Mucus (NEGATIVE) /HPF Urine Culture Reflexed (NO) Urine Opiates Level (NEGATIVE) Ur Methadone (NEGATIVE) Urine Barbiturates (NEGATIVE) Ur Phencyclidine (PCP) (NEGATIVE) Urine Amphetamine (NEGATIVE) U Benzodiazepine Level (NEGATIVE) Urine Cocaine (NEGATIVE) Urine Marijuana (THC) (NEGATIVE) Influenza Type A Ag (NEGATIVE) Influenza Type B Ag (NEGATIVE) RSV (PCR) (NEGATIVE) SARS-CoV-2 (PCR) (NEGATIVE) 12/06/24 Range/Units 21:40 WBC (3.98-10.04) x10^3/uL RBC (3.93-5.22) x10^6/uL Hgb (11.2-15.7) g/dL Hct (34.1-44.9) % MCV (79.4-94.8) fL MCH (25.6-32.2) pg MCHC (32.2-35.5) g/dL RDW (11.7-14.4) % Plt Count (182-369) x10^3/uL MPV (9.4-12.3) fL Segmented Neutrophils (34.0-71.1) % Lymphocytes (Manual) (19.3-51.7) % Monocytes (Manual) (4.7-12.5) % Platelet Estimate (NORMAL) RBC Morphology Sodium (135-145) mmol/L Potassium (3.5-5.1) mmol/L Chloride (98-107) mmol/L Carbon Dioxide (22-30) mmol/L Anion Gap (5-15) MEQ/L BUN (7-17) mg/dL Creatinine (0.52-1.04) mg/dL Estimated GFR ML/MIN Glucose (74-106) mg/dL POC Glucometer 206 H (74 to 106) mg/dL Lactic Acid (0.4-2.0) Calcium (8.4-10.2) mg/dL Total Bilirubin (0.2-1.3) mg/dL AST (14-36) U/L ALT (0-35) U/L Alkaline Phosphatase (38-126) U/L Troponin I (0.000-0.033) ng/mL Serum Total Protein (6.3-8.2) g/dL Albumin (3.5-5.0) g/dL Urine Color (Yellow) Urine Appearance (Clear) Urine pH (4.6-8.0) Ur Specific [place] (1.005-1.030) Urine Protein (Negative) Urine Glucose (UA) (Negative) mg/dL Urine Ketones (Negative) Urine Blood (Negative) Urine Nitrite (Negative) Urine Bilirubin (Negative) Urine Urobilinogen (0.2) mg/dL Ur Leukocyte Esterase (Negative) U Hyaline Cast (Auto) (0-2) /LPF Urine Microscopic RBC (0-5) /HPF Urine Microscopic WBC (0-5) /HPF Ur Epithelial Cells (None Seen) /HPF Urine Bacteria (None Seen) /HPF Urine Mucus (NEGATIVE) /HPF Urine Culture Reflexed (NO) Urine Opiates Level (NEGATIVE) Ur Methadone (NEGATIVE) Urine Barbiturates (NEGATIVE) Ur Phencyclidine (PCP) (NEGATIVE) Urine Amphetamine (NEGATIVE) U Benzodiazepine Level (NEGATIVE) Urine Cocaine (NEGATIVE) Urine Marijuana (THC) (NEGATIVE) Influenza Type A Ag (NEGATIVE) Influenza Type B Ag (NEGATIVE) RSV (PCR) (NEGATIVE) SARS-CoV-2 (PCR) (NEGATIVE) - Radiology Impressions Radiology Exams & Impressions: Radiology Procedures Category Date Time Status CHEST 2 VIEWS (PA AND LAT) Stat Exams 12/06/24 12:21 Completed - Other Procedures and Tests Respiratory Therapy 12/06/24 21:27 RT Screen per Nursing Assess ONCE Assessment/Plan (1) Atrial fibrillation with RVR Current Visit: Yes Status: Acute Assessment & Plan: May be related to intravascular volume depletion from diuretics/recent URI versus cardiac origin 1. Admit to hospital 2. Monitor on telemetry 3. Start cardizem drip, continue Lovenox with plans to adjust to eliquis 4. Replete lytes 5. Consider cardiology consult if persistent 6. DVT/GI prophylaxis Code(s): I48.91 - UNSPECIFIED ATRIAL FIBRILLATION (2) Hypokalemia Current Visit: Yes Status: Acute Assessment & Plan: Likely from diuretics +/- GI losses 1. Hold diuretics 2. Replete K, check Mg 3. Monitor electrolytes Code(s): E87.6 - HYPOKALEMIA (3) UTI (urinary tract infection) Current Visit: Yes Status: Acute Qualifiers: Urinary tract infection type: acute cystitis Hematuria presence: without hematuria Qualified Code(s): N30.00 - Acute cystitis without hematuria Assessment & Plan: Unclear if true UTI versus dehydration from recent URI 1. Defer antibiotics for now 2. IVFs 3. Check cultures Code(s): N39.0 - URINARY TRACT INFECTION, SITE NOT SPECIFIED (4) Diabetes Current Visit: No Status: Chronic Assessment & Plan: Elevated blood sugars 1. ADA diet with FSBS qAC/HS and SSI 2. Check HbA1c 3. Continue diabetic meds Code(s): E11.9 - TYPE 2 DIABETES MELLITUS WITHOUT COMPLICATIONS Telemedicine Encounter - Telemedicine Encounter Telemedicine Encounter: "The entirety of this encounter was performed via Telemedicine" This visit was performed using real-time audio and video connection between my location and thepatients locationwith the assistance of a surrogateat the patients location. Written or verbal consent was obtained from the patient/guardian to perform this visit using[employer] technology. Any patient questions regarding the telemedicine interaction were answered.
[2024-12-06] MEDS ORDERED: Zofran 4 MG/2 ML VIAL IV PRN (22:00)
[2024-12-06] MEDS ORDERED: PERCOCET TABLET 5/325MG PO PRN (22:03)
[2024-12-06] MEDS ORDERED: PROVENTIL 2.5 MG/3 ML NEB IH ONE (22:21)
[2024-12-06] MEDS: HUMALOG SQ PRN (22:21)
[2024-12-06] MEDS: TYLENOL 325 MG PO PRN (22:21)
[2024-12-06] MEDS: Sodium Chloride 0.9% 1000 ML 1,000 ML IV SCH (22:22)
[2024-12-06] MEDS: PROVENTIL 2.5 MG/3 ML NEB IH ONE (22:54)
[2024-12-07] MEDS: ENOXAPARIN SODIUM SQ SCH (01:38)
[2024-12-07 05:06] LABS: Hematocrit 35.6 % (34.1-44.9); Hemoglobin 11.6 g/dL (11.2-15.7); Mean Cell Volume 83.2 fL (79.4-94.8); Mean Corpuscular Hemoglobin 27.1 pg (25.6-32.2); Mean Corpuscular Hgb Concent. 32.6 g/dL (32.2-35.5); Mean Platelet Volume 9.6 fL (9.4-12.3); Platelet Count 318 x10^3/uL (182-369); Red Blood Count 4.28 x10^6/uL (3.93-5.22); Red Cell Distribution Width 13.8 % (11.7-14.4); White Blood Count 7.9 x10^3/uL (3.98-10.04)
[2024-12-07 05:19] LABS: ALBUMIN 3.9 g/dL (3.5-5.0); BILIRUBIN,TOTAL 0.9 mg/dL (0.2-1.3); Calcium 8.7 mg/dL (8.4-10.2); Creatinine 1 0.84 mg/dL (0.52-1.04); Potassium 3.3 mmol/L (3.5-5.1); Total Protein 7.5 g/dL (6.3-8.2)
[2024-12-07] MEDS: Glucophage 500 MG PO SCH (08:09)
[2024-12-07] MEDS: Klor Con PO SCH (08:09)
[2024-12-07] MEDS: Glucotrol 5 MG PO SCH (08:09)
[2024-12-07] MEDS: Lyrica 50MG PO SCH (09:45)
[2024-12-07] MEDS: Protonix 40MG Tablet PO SCH (09:46)
[2024-12-07] MEDS: ELIQUIS 2.5 MG TABLET PO SCH (09:46)
[2024-12-07] MEDS: ceLEXa 20 MG PO SCH (09:46)
[2024-12-07] MEDS: NORVASC 5 MG PO SCH (09:51)
--- NOTE | 2024-12-07 09:51 | PCM.NOTE ---
Date and Time: 12/07/24 0950 Subjective Assessment: Ms. EDUARDO is a is a 59-year-old female with a past medical history significant for hypertension, hyperlipidemia, diabetes, and a previous history of tachycardia that required a Holter monitor. She presented to the hospital on 12/06/23 with complaints of fever up to 104F, chills, and a nonproductive cough. She reports not eating or drinking as usual. Upon arrival, the patient was found to be tachycardic, with heart rates ranging from 120-150 beats per minute, requiring initiation of a Cardizem drip. Her labs were notable for a potassium level of 3.4 and a creatinine of 1.1. The patient takes hydrochlorothiazide (HCTZ) daily and uses Bumex as needed. On examination, she is resting in bed, awake, and alert, with no current fever or chills. She denies chest pain, shortness of breath, nausea, vomiting, diarrhea, dysuria, hematuria, or urgency. Today, the patient continues to be in atrial fibrillation with rapid ventricular response (Afib RVR) with a heart rate in the 120s, requiring ongoing Cardizem drip. Cardiology has been consulted. The patient reports a history of refusing warfarin but is now willing to try Eliquis, which will be started today. Case management was involved in discussing the plan, and medication coverage for Eliquis should be addressed for outpatient use. Potassium was replaced, and a repeat lactic acid level is within normal limits. Urine culture and blood cultures (x2) are pending. The patient is eager to be discharged today and has been informed that discharge will be contingent upon better control of her heart rate. She has not had a fever since admission. She denies CP, SOB, abd. pain, N/V/D. - Review of Systems Constitutional: No Fever, No Chills Eyes: No Symptoms Ears, Nose, & Throat: No Symptoms Respiratory: No Cough, No Short Of Breath Cardiac: Palpitations, No Chest Pain, No Edema, No Syncope Abdominal/Gastrointestinal: No Abdominal Pain, No Nausea, No Vomiting, No Diarrhea Genitourinary Symptoms: No Dysuria Musculoskeletal: No Back Pain, No Neck Pain Skin: No Rash Neurological: No Dizziness, No Focal Weakness, No Sensory Changes Psychological: No Symptoms Endocrine: No Symptoms Hematologic/Lymphatic: No Symptoms Immunological/Allergic: No Symptoms Objective Exam General Appearance: no apparent distress, alert, obese Neurologic Exam: alert, oriented x 3, cooperative, normal mood/affect, nml cerebellar function, sensation nml, No motor deficits Skin Exam: normal color, warm, dry Eye Exam: PERRL, EOMI, eyes nml inspection Ears, Nose, Throat Exam: normal ENT inspection, pharynx normal, moist mucous membranes Neck Exam: normal inspection, non-tender, supple, full range of motion Respiratory Exam: normal breath sounds, lungs clear, No respiratory distress Cardiovascular Exam: normal heart sounds, irregular (HR increased with activity) Gastrointestinal/Abdomen Exam: soft, No tenderness, No mass Extremity Exam: normal inspection, normal range of motion Back Exam: normal inspection, normal range of motion, No CVA tenderness, No vertebral tenderness Pelvic Exam: deferred Rectal Exam: deferred Objective Data Vital Signs: Vital Signs - 24 hr Temp Pulse Resp BP BP Pulse Ox 12/07/24 08:24 132 H 28 H 129/72 12/07/24 08:21 122 H 20 129/72 12/07/24 08:00 112 H 19 129/72 12/07/24 07:30 97.9 F 115 H 16 109/72 91 L 12/07/24 07:05 115 H 16 109/72 12/07/24 07:00 104 H 17 125/82 93 L 12/07/24 06:52 116 H 18 91 L 12/07/24 06:05 106 H 20 122/71 12/07/24 06:00 106 H 20 122/71 12/07/24 05:05 131 H 21 130/81 12/07/24 05:00 97.3 F 131 H 21 130/81 12/07/24 04:05 121 H 16 122/73 12/07/24 04:00 121 H 16 122/73 12/07/24 03:00 117 H 16 103/61 12/07/24 02:57 107 H 16 108/79 12/07/24 02:00 107 H 16 108/79 12/07/24 01:57 128 H 14 113/86 12/07/24 01:00 97.9 F 128 H 14 113/86 95 12/07/24 00:57 110 H 18 100/75 12/07/24 00:32 110 H 18 100/75 12/07/24 00:01 110 H 18 100/75 12/07/24 00:00 110 H 18 100/75 12/06/24 23:57 118 H 18 110/66 12/06/24 23:32 118 H 18 110/66 12/06/24 23:00 120 H 19 110/66 89 L 12/06/24 22:57 93 H 15 127/75 12/06/24 22:55 100 H 18 94 L 12/06/24 22:32 91 H 15 127/75 12/06/24 22:01 116 H 20 127/75 93 L 12/06/24 21:57 105 H 17 106/64 12/06/24 21:07 105 H 17 106/64 94 L 12/06/24 21:02 100 H 20 94 L 12/06/24 20:57 106 H 23 104/65 12/06/24 20:00 97.5 F 106 H 23 104/65 93 L 12/06/24 19:57 109 H 16 121/64 12/06/24 19:50 97.5 F 109 H 16 121/64 121/64 93 L 12/06/24 19:34 97 12/06/24 19:20 110 H 18 12/06/24 19:12 121 H 20 12/06/24 19:00 112 H 17 118/88 95 12/06/24 18:10 101 H 17 121/79 96 12/06/24 18:00 111 H 15 127/89 12/06/24 17:50 104 H 16 124/76 96 12/06/24 17:40 115 H 19 124/78 95 12/06/24 17:30 104 H 18 123/73 12/06/24 17:20 99 H 17 114/70 95 12/06/24 17:10 96 H 17 126/89 12/06/24 17:00 106 H 17 107/75 94 L 12/06/24 16:50 109 H 15 132/100 12/06/24 16:40 109 H 20 120/80 12/06/24 16:30 106 H 18 124/69 94 L 12/06/24 16:22 132 H 28 H 12/06/24 16:00 106 H 21 113/80 96 12/06/24 15:00 122 H 16 117/71 96 12/06/24 14:52 111 H 20 134/65 12/06/24 14:00 110 H 29 H 129/81 95 12/06/24 13:57 126 H 19 108/73 12/06/24 13:29 128 H 18 120/92 12/06/24 12:34 133 H 29 H 104/88 96 12/06/24 12:06 146 H 20 130/76 97 12/06/24 12:02 97.5 F 141 H 30 H 130/76 97 Pain Assessment - Last Documented Pain Intensity 4 Pain Scale Used 0-10 Pain Scale Intake and Output: Intake & Output 12/04/24 12/05/24 12/06/24 12/07/24 11:59 11:59 11:59 11:59 Intake Total 2228 Output Total 300 Balance 1928 Weight 121.4 kg Lab Results: Lab Results-Last 24 Hours 12/06/24 12/06/24 12/06/24 Range/Units 12:28 12:28 12:28 WBC 9.3 (3.98-10.04) x10^3/uL RBC 4.65 (3.93-5.22) x10^6/uL Hgb 12.7 (11.2-15.7) g/dL Hct 37.9 (34.1-44.9) % MCV 81.5 (79.4-94.8) fL MCH 27.3 (25.6-32.2) pg MCHC 33.5 (32.2-35.5) g/dL RDW 13.8 (11.7-14.4) % Plt Count 350 (182-369) x10^3/uL MPV 9.9 (9.4-12.3) fL Segmented Neutrophils 78 H (34.0-71.1) % Lymphocytes (Manual) 19 L (19.3-51.7) % Monocytes (Manual) 3 L (4.7-12.5) % Platelet Estimate NORMAL (NORMAL) RBC Morphology NORMAL Sodium 135 (135-145) mmol/L Potassium 3.4 L (3.5-5.1) mmol/L Chloride 98 (98-107) mmol/L Carbon Dioxide 17 L (22-30) mmol/L Anion Gap 22.9 H (5-15) MEQ/L BUN 28 H (7-17) mg/dL Creatinine 1.02 (0.52-1.04) mg/dL Estimated GFR 64.2 ML/MIN Glucose 318 H (74-106) mg/dL POC Glucometer (74 to 106) mg/dL Hemoglobin A1c (4.5-6.0) % Lactic Acid (0.4-2.0) Calcium 9.3 (8.4-10.2) mg/dL Magnesium (1.6-2.3) mg/dL Total Bilirubin 1.30 (0.2-1.3) mg/dL AST 36 (14-36) U/L ALT 34 (0-35) U/L Alkaline Phosphatase 104 (38-126) U/L Troponin I (0.000-0.033) ng/mL Serum Total Protein 8.2 (6.3-8.2) g/dL Albumin 4.4 (3.5-5.0) g/dL Urine Color (Yellow) Urine Appearance (Clear) Urine pH (4.6-8.0) Ur Specific [place] (1.005-1.030) Urine Protein (Negative) Urine Glucose (UA) (Negative) mg/dL Urine Ketones (Negative) Urine Blood (Negative) Urine Nitrite (Negative) Urine Bilirubin (Negative) Urine Urobilinogen (0.2) mg/dL Ur Leukocyte Esterase (Negative) U Hyaline Cast (Auto) (0-2) /LPF Urine Microscopic RBC (0-5) /HPF Urine Microscopic WBC (0-5) /HPF Ur Epithelial Cells (None Seen) /HPF Urine Bacteria (None Seen) /HPF Urine Mucus (NEGATIVE) /HPF Urine Culture Reflexed (NO) Urine Opiates Level (NEGATIVE) Ur Methadone (NEGATIVE) Urine Barbiturates (NEGATIVE) Ur Phencyclidine (PCP) (NEGATIVE) Urine Amphetamine (NEGATIVE) U Benzodiazepine Level (NEGATIVE) Urine Cocaine (NEGATIVE) Urine Marijuana (THC) (NEGATIVE) Influenza Type A Ag NEGATIVE (NEGATIVE) Influenza Type B Ag NEGATIVE (NEGATIVE) RSV (PCR) NEGATIVE (NEGATIVE) SARS-CoV-2 (PCR) NEGATIVE (NEGATIVE) 12/06/24 12/06/24 12/06/24 Range/Units 12:50 13:37 13:37 WBC (3.98-10.04) x10^3/uL RBC (3.93-5.22) x10^6/uL Hgb (11.2-15.7) g/dL Hct (34.1-44.9) % MCV (79.4-94.8) fL MCH (25.6-32.2) pg MCHC (32.2-35.5) g/dL RDW (11.7-14.4) % Plt Count (182-369) x10^3/uL MPV (9.4-12.3) fL Segmented Neutrophils (34.0-71.1) % Lymphocytes (Manual) (19.3-51.7) % Monocytes (Manual) (4.7-12.5) % Platelet Estimate (NORMAL) RBC Morphology Sodium (135-145) mmol/L Potassium (3.5-5.1) mmol/L Chloride (98-107) mmol/L Carbon Dioxide (22-30) mmol/L Anion Gap (5-15) MEQ/L BUN (7-17) mg/dL Creatinine (0.52-1.04) mg/dL Estimated GFR ML/MIN Glucose (74-106) mg/dL POC Glucometer (74 to 106) mg/dL Hemoglobin A1c (4.5-6.0) % Lactic Acid 3.7 H (0.4-2.0) Calcium (8.4-10.2) mg/dL Magnesium (1.6-2.3) mg/dL Total Bilirubin (0.2-1.3) mg/dL AST (14-36) U/L ALT (0-35) U/L Alkaline Phosphatase (38-126) U/L Troponin I (0.000-0.033) ng/mL Serum Total Protein (6.3-8.2) g/dL Albumin (3.5-5.0) g/dL Urine Color Yellow (Yellow) Urine Appearance Clear (Clear) Urine pH 5.0 (4.6-8.0) Ur Specific [place] 1.020 (1.005-1.030) Urine Protein 30 (Negative) Urine Glucose (UA) 250 A (Negative) mg/dL Urine Ketones Trace A (Negative) Urine Blood Negative (Negative) Urine Nitrite Negative (Negative) Urine Bilirubin Negative (Negative) Urine Urobilinogen 0.2 (0.2) mg/dL Ur Leukocyte Esterase Small A (Negative) U Hyaline Cast (Auto) 3-5 A (0-2) /LPF Urine Microscopic RBC 0-2 (0-5) /HPF Urine Microscopic WBC 6-10 A (0-5) /HPF Ur Epithelial Cells Rare (None Seen) /HPF Urine Bacteria Many A (None Seen) /HPF Urine Mucus Few A (NEGATIVE) /HPF Urine Culture Reflexed YES (NO) Urine Opiates Level NEGATIVE (NEGATIVE) Ur Methadone NEGATIVE (NEGATIVE) Urine Barbiturates NEGATIVE (NEGATIVE) Ur Phencyclidine (PCP) NEGATIVE (NEGATIVE) Urine Amphetamine NEGATIVE (NEGATIVE) U Benzodiazepine Level NEGATIVE (NEGATIVE) Urine Cocaine NEGATIVE (NEGATIVE) Urine Marijuana (THC) NEGATIVE (NEGATIVE) Influenza Type A Ag (NEGATIVE) Influenza Type B Ag (NEGATIVE) RSV (PCR) (NEGATIVE) SARS-CoV-2 (PCR) (NEGATIVE) 12/06/24 12/06/24 12/06/24 Range/Units 14:55 15:22 19:16 WBC (3.98-10.04) x10^3/uL RBC (3.93-5.22) x10^6/uL Hgb (11.2-15.7) g/dL Hct (34.1-44.9) % MCV (79.4-94.8) fL MCH (25.6-32.2) pg MCHC (32.2-35.5) g/dL RDW (11.7-14.4) % Plt Count (182-369) x10^3/uL MPV (9.4-12.3) fL Segmented Neutrophils (34.0-71.1) % Lymphocytes (Manual) (19.3-51.7) % Monocytes (Manual) (4.7-12.5) % Platelet Estimate (NORMAL) RBC Morphology Sodium (135-145) mmol/L Potassium (3.5-5.1) mmol/L Chloride (98-107) mmol/L Carbon Dioxide (22-30) mmol/L Anion Gap (5-15) MEQ/L BUN (7-17) mg/dL Creatinine (0.52-1.04) mg/dL Estimated GFR ML/MIN Glucose (74-106) mg/dL POC Glucometer (74 to 106) mg/dL Hemoglobin A1c (4.5-6.0) % Lactic Acid 2.1 H (0.4-2.0) Calcium (8.4-10.2) mg/dL Magnesium (1.6-2.3) mg/dL Total Bilirubin (0.2-1.3) mg/dL AST (14-36) U/L ALT (0-35) U/L Alkaline Phosphatase (38-126) U/L Troponin I < 0.012 < 0.012 (0.000-0.033) ng/mL Serum Total Protein (6.3-8.2) g/dL Albumin (3.5-5.0) g/dL Urine Color (Yellow) Urine Appearance (Clear) Urine pH (4.6-8.0) Ur Specific [place] (1.005-1.030) Urine Protein (Negative) Urine Glucose (UA) (Negative) mg/dL Urine Ketones (Negative) Urine Blood (Negative) Urine Nitrite (Negative) Urine Bilirubin (Negative) Urine Urobilinogen (0.2) mg/dL Ur Leukocyte Esterase (Negative) U Hyaline Cast (Auto) (0-2) /LPF Urine Microscopic RBC (0-5) /HPF Urine Microscopic WBC (0-5) /HPF Ur Epithelial Cells (None Seen) /HPF Urine Bacteria (None Seen) /HPF Urine Mucus (NEGATIVE) /HPF Urine Culture Reflexed (NO) Urine Opiates Level (NEGATIVE) Ur Methadone (NEGATIVE) Urine Barbiturates (NEGATIVE) Ur Phencyclidine (PCP) (NEGATIVE) Urine Amphetamine (NEGATIVE) U Benzodiazepine Level (NEGATIVE) Urine Cocaine (NEGATIVE) Urine Marijuana (THC) (NEGATIVE) Influenza Type A Ag (NEGATIVE) Influenza Type B Ag (NEGATIVE) RSV (PCR) (NEGATIVE) SARS-CoV-2 (PCR) (NEGATIVE) 12/06/24 12/06/24 12/07/24 Range/Units 21:40 23:21 04:40 WBC 7.9 (3.98-10.04) x10^3/uL RBC 4.28 (3.93-5.22) x10^6/uL Hgb 11.6 (11.2-15.7) g/dL Hct 35.6 (34.1-44.9) % MCV 83.2 (79.4-94.8) fL MCH 27.1 (25.6-32.2) pg MCHC 32.6 (32.2-35.5) g/dL RDW 13.8 (11.7-14.4) % Plt Count 318 (182-369) x10^3/uL MPV 9.6 (9.4-12.3) fL Segmented Neutrophils (34.0-71.1) % Lymphocytes (Manual) (19.3-51.7) % Monocytes (Manual) (4.7-12.5) % Platelet Estimate (NORMAL) RBC Morphology Sodium (135-145) mmol/L Potassium (3.5-5.1) mmol/L Chloride (98-107) mmol/L Carbon Dioxide (22-30) mmol/L Anion Gap (5-15) MEQ/L BUN (7-17) mg/dL Creatinine (0.52-1.04) mg/dL Estimated GFR ML/MIN Glucose (74-106) mg/dL POC Glucometer 206 H (74 to 106) mg/dL Hemoglobin A1c (4.5-6.0) % Lactic Acid (0.4-2.0) Calcium (8.4-10.2) mg/dL Magnesium (1.6-2.3) mg/dL Total Bilirubin (0.2-1.3) mg/dL AST (14-36) U/L ALT (0-35) U/L Alkaline Phosphatase (38-126) U/L Troponin I < 0.012 (0.000-0.033) ng/mL Serum Total Protein (6.3-8.2) g/dL Albumin (3.5-5.0) g/dL Urine Color (Yellow) Urine Appearance (Clear) Urine pH (4.6-8.0) Ur Specific [place] (1.005-1.030) Urine Protein (Negative) Urine Glucose (UA) (Negative) mg/dL Urine Ketones (Negative) Urine Blood (Negative) Urine Nitrite (Negative) Urine Bilirubin (Negative) Urine Urobilinogen (0.2) mg/dL Ur Leukocyte Esterase (Negative) U Hyaline Cast (Auto) (0-2) /LPF Urine Microscopic RBC (0-5) /HPF Urine Microscopic WBC (0-5) /HPF Ur Epithelial Cells (None Seen) /HPF Urine Bacteria (None Seen) /HPF Urine Mucus (NEGATIVE) /HPF Urine Culture Reflexed (NO) Urine Opiates Level (NEGATIVE) Ur Methadone (NEGATIVE) Urine Barbiturates (NEGATIVE) Ur Phencyclidine (PCP) (NEGATIVE) Urine Amphetamine (NEGATIVE) U Benzodiazepine Level (NEGATIVE) Urine Cocaine (NEGATIVE) Urine Marijuana (THC) (NEGATIVE) Influenza Type A Ag (NEGATIVE) Influenza Type B Ag (NEGATIVE) RSV (PCR) (NEGATIVE) SARS-CoV-2 (PCR) (NEGATIVE) 12/07/24 12/07/24 12/07/24 Range/Units 04:40 05:04 05:04 WBC (3.98-10.04) x10^3/uL RBC (3.93-5.22) x10^6/uL Hgb (11.2-15.7) g/dL Hct (34.1-44.9) % MCV (79.4-94.8) fL MCH (25.6-32.2) pg MCHC (32.2-35.5) g/dL RDW (11.7-14.4) % Plt Count (182-369) x10^3/uL MPV (9.4-12.3) fL Segmented Neutrophils (34.0-71.1) % Lymphocytes (Manual) (19.3-51.7) % Monocytes (Manual) (4.7-12.5) % Platelet Estimate (NORMAL) RBC Morphology Sodium 136 (135-145) mmol/L Potassium 3.3 L (3.5-5.1) mmol/L Chloride 103 (98-107) mmol/L Carbon Dioxide 20 L (22-30) mmol/L Anion Gap 16.0 H (5-15) MEQ/L BUN 19 H (7-17) mg/dL Creatinine 0.84 (0.52-1.04) mg/dL Estimated GFR 81.0 ML/MIN Glucose 192 H (74-106) mg/dL POC Glucometer (74 to 106) mg/dL Hemoglobin A1c 7.65 H (4.5-6.0) % Lactic Acid (0.4-2.0) Calcium 8.7 (8.4-10.2) mg/dL Magnesium 1.7 (1.6-2.3) mg/dL Total Bilirubin 0.90 (0.2-1.3) mg/dL AST 27 (14-36) U/L ALT 23 (0-35) U/L Alkaline Phosphatase 107 (38-126) U/L Troponin I (0.000-0.033) ng/mL Serum Total Protein 7.5 (6.3-8.2) g/dL Albumin 3.9 (3.5-5.0) g/dL Urine Color (Yellow) Urine Appearance (Clear) Urine pH (4.6-8.0) Ur Specific [place] (1.005-1.030) Urine Protein (Negative) Urine Glucose (UA) (Negative) mg/dL Urine Ketones (Negative) Urine Blood (Negative) Urine Nitrite (Negative) Urine Bilirubin (Negative) Urine Urobilinogen (0.2) mg/dL Ur Leukocyte Esterase (Negative) U Hyaline Cast (Auto) (0-2) /LPF Urine Microscopic RBC (0-5) /HPF Urine Microscopic WBC (0-5) /HPF Ur Epithelial Cells (None Seen) /HPF Urine Bacteria (None Seen) /HPF Urine Mucus (NEGATIVE) /HPF Urine Culture Reflexed (NO) Urine Opiates Level (NEGATIVE) Ur Methadone (NEGATIVE) Urine Barbiturates (NEGATIVE) Ur Phencyclidine (PCP) (NEGATIVE) Urine Amphetamine (NEGATIVE) U Benzodiazepine Level (NEGATIVE) Urine Cocaine (NEGATIVE) Urine Marijuana (THC) (NEGATIVE) Influenza Type A Ag (NEGATIVE) Influenza Type B Ag (NEGATIVE) RSV (PCR) (NEGATIVE) SARS-CoV-2 (PCR) (NEGATIVE) 12/07/24 12/07/24 Range/Units 07:28 07:50 WBC (3.98-10.04) x10^3/uL RBC (3.93-5.22) x10^6/uL Hgb (11.2-15.7) g/dL Hct (34.1-44.9) % MCV (79.4-94.8) fL MCH (25.6-32.2) pg MCHC (32.2-35.5) g/dL RDW (11.7-14.4) % Plt Count (182-369) x10^3/uL MPV (9.4-12.3) fL Segmented Neutrophils (34.0-71.1) % Lymphocytes (Manual) (19.3-51.7) % Monocytes (Manual) (4.7-12.5) % Platelet Estimate (NORMAL) RBC Morphology Sodium (135-145) mmol/L Potassium (3.5-5.1) mmol/L Chloride (98-107) mmol/L Carbon Dioxide (22-30) mmol/L Anion Gap (5-15) MEQ/L BUN (7-17) mg/dL Creatinine (0.52-1.04) mg/dL Estimated GFR ML/MIN Glucose (74-106) mg/dL POC Glucometer 221 H (74 to 106) mg/dL Hemoglobin A1c (4.5-6.0) % Lactic Acid 0.9 (0.4-2.0) Calcium (8.4-10.2) mg/dL Magnesium (1.6-2.3) mg/dL Total Bilirubin (0.2-1.3) mg/dL AST (14-36) U/L ALT (0-35) U/L Alkaline Phosphatase (38-126) U/L Troponin I (0.000-0.033) ng/mL Serum Total Protein (6.3-8.2) g/dL Albumin (3.5-5.0) g/dL Urine Color (Yellow) Urine Appearance (Clear) Urine pH (4.6-8.0) Ur Specific [place] (1.005-1.030) Urine Protein (Negative) Urine Glucose (UA) (Negative) mg/dL Urine Ketones (Negative) Urine Blood (Negative) Urine Nitrite (Negative) Urine Bilirubin (Negative) Urine Urobilinogen (0.2) mg/dL Ur Leukocyte Esterase (Negative) U Hyaline Cast (Auto) (0-2) /LPF Urine Microscopic RBC (0-5) /HPF Urine Microscopic WBC (0-5) /HPF Ur Epithelial Cells (None Seen) /HPF Urine Bacteria (None Seen) /HPF Urine Mucus (NEGATIVE) /HPF Urine Culture Reflexed (NO) Urine Opiates Level (NEGATIVE) Ur Methadone (NEGATIVE) Urine Barbiturates (NEGATIVE) Ur Phencyclidine (PCP) (NEGATIVE) Urine Amphetamine (NEGATIVE) U Benzodiazepine Level (NEGATIVE) Urine Cocaine (NEGATIVE) Urine Marijuana (THC) (NEGATIVE) Influenza Type A Ag (NEGATIVE) Influenza Type B Ag (NEGATIVE) RSV (PCR) (NEGATIVE) SARS-CoV-2 (PCR) (NEGATIVE) Radiology Exams: Radiology Procedures Category Date Time Status CHEST 2 VIEWS (PA AND LAT) Stat Exams 12/06/24 12:21 Completed Assessment/Plan (1) Atrial fibrillation with RVR Current Visit: Yes Status: Acute Assessment & Plan: - EKG - ECHO - ICU-Tele - cardizem gtt - Denies CP - + activity intolerance- consider PT Eval - Pt reports a hx of a-fib but refused warfarin in the past- Ok with transitioning to Eliquis today BID - Pt has a hx of CVA and NE - Education provided at length need for blood thinner. - Cardiology consult - Keep K+>4 and Mg > 2- both replaced today. 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 (3) UTI (urinary tract infection) Current Visit: Yes Status: Acute Qualifiers: Qualified Code(s): N30.00 - Acute cystitis without hematuria Assessment & Plan: - IV antibiotic gave in ER- continue IP - UC pending - CBC, CMP reviewed - UC gram negative sensitivity pending - No fever since admission - BC X2 pending Code(s): N39.0 - URINARY TRACT INFECTION, SITE NOT SPECIFIED (4) Depression with anxiety Current Visit: Yes Status: Chronic Assessment & Plan: - Continue home meds Code(s): F41.8 - OTHER SPECIFIED ANXIETY DISORDERS (5) Rheumatoid arthritis Current Visit: Yes Status: Chronic Assessment & Plan: - Continue oral narcotic pain med Code(s): M06.9 - RHEUMATOID ARTHRITIS, UNSPECIFIED (6) CAD (coronary artery disease) Current Visit: Yes Assessment & Plan: - Pt reports hx of NE - Echo pending - Refused anticoagulation in the past - Continue home meds - Follows Dr. Ospina- cardiology Code(s): I25.10 - ATHSCL HEART DISEASE OF [place] CORONARY ARTERY W/O ANG PCTRS (7) Hx TIA/stroke w/o resid Current Visit: Yes Assessment & Plan: - pt reports takind daily ASA Code(s): Z86.73 - PRSNL HX OF TIA (TIA), AND CEREB INFRC W/O RESID DEFICITS (8) Hypokalemia Current Visit: Yes Status: Acute Assessment & Plan: - K+ 3.3 replaced- trend - Keep K+ > 4 Code(s): E87.6 - HYPOKALEMIA (9) Hypertension Current Visit: No Status: Chronic Assessment & Plan: - BP stable - Cont home meds - Pt became hypotensive with cardizem gtt last night and NS @ 50 ml/hr started- IVF stopped today as BP stable. Code(s): I10 - ESSENTIAL (PRIMARY) HYPERTENSION (10) Morbid obesity with BMI of 40.0-44.9, adult Current Visit: Yes Status: Chronic Assessment & Plan: - Advised ADA diet and exercise control VTE: Eliquis PPI: Protonix Next of KIN: Spouse, Jg- [phone] D/C plan: 1-2 days Code status:Full Code(s): E66.01 - MORBID (SEVERE) OBESITY DUE TO EXCESS CALORIES; Z68.41 - BODY MASS INDEX [BMI] 40.0-44.9, ADULT
[2024-12-07] MEDS ORDERED: ENOXAPARIN SODIUM SQ SCH (10:00)
[2024-12-07] MEDS ORDERED: NON-FORMULARY ITEM (Amlodipine Besylate [Norvasc] 10 MG Tablet) PO SCH (10:00)
[2024-12-07] MEDS ORDERED: NON-FORMULARY ITEM (Omeprazole [Omeprazole] 20 MG Tablet.Dr) PO SCH (10:00)
--- NOTE | 2024-12-07 10:35 | PCM.CONS ---
History of Present Illness - Date of Consult Date of Encounter: 12/07/24 Consulting Team Psychologist: LEIGH LEI MD Requesting Provider: Attending Provider: TEODORA COOPER MD Primary Care Provider: PCP: LILIANA SANCHEZ MD Consent was: Given for this tele-med encounter - Consult Narrative Reason for Consult: Atrial fibrillation with rapid ventricular response HPI: Patient is a severely obese 59 y.o. female with history of CAD, migrainous CVA, HTN, type II DM, hyperlipidemia, mild asthma, JIGNA on CPAP, DJD, and rheumatoid arthritis who presented with atrial fibrillation with rapid ventricular response. She has had a 3 week history of fevers up to 104 degrees, nonproductive cough, shortness of breath, diarrhea, and decreased po intake. F ours days prior to admission, she noted increased heart rates to the 150s and 160s on her BP machine. She also was bothered by light headedness but denies syncope. On arrival to our ER yesterday, she was treated with one liter of IVFs. Her ECG revealed atrial fibrillation at 145 bpm. She was treated with diltiazem 10mg IVP followed by a diltiazem infusion. It started at 5 mg/hr and has been titrated up to 15 mg/hr. Her VR remains at 110-130 bpm. She has not taken any of her home metoprolol tartrate 75 mg BID. She was diagnosed with an UTI in the ER and has been treated with antibiotics. She has remained afebrile in the hospital. She had an IN in 2004 and 2005. No coronary interventions were required. A Lexiscan MPS in 09/2021 showed normal myocardial perfusion and LVEF. She underwent a cardiac cath in early 2021 demonstrating only mild CAD. A Holter monitor in 2021 showed short runs of a fast heart rhythm (SVT based on her description). She denies any prior history of atrial fibrillation. She denies any chest pain oor palpitations. cc:: The requesting physician will be sent a copy of the consult. - Past Medical History Past Medical History: Yes Neurological History: Migraines, Stroke ENT History: No Pertinent History Cardiac History: Myocardial Infarction (IN), Hypertension Respiratory History: Asthma Endocrine Medical History: Diabetes Type II Musculoskelatal History: Arthritis, Fibromyalgia, Osteoarthritis, Osteoporosis, Rheumatoid Arthritis GI Medical History: Hernia, GERD History: No Pertinent History Pyscho-Social History: Depression, Anxiety Reproductive Disorders: Endometriosis Comment: fatty liver - Past Surgical History Past Surgical History: Yes Neuro Surgical History: No Pertinent History Cardiac History: Cardiac Catheterization Respiratory Surgery: No Pertinent History GI Surgical History: Cholecystectomy, Hernia Repair, Other Genitourinary Surgical Hx: No Pertinent History Musculskeletal Surgical Hx: Orthopedic Surgery Female Surgical History: Hysterectomy, Tubal Ligation, Section Other Surgical History: LEFT ANKLE SURGERY, skin tumor posterior right arm, left index finger, 12 abdominal hernia repairs. soft tissue mass removed from OLY feet plantar fasciatis surgery. Significant Family History: heart disease, hypertension - Social History Smoking Status: Former smoker How long have you smoked: 30 Exposure to second hand smoke: No Alcohol: None Drug Use: none - Social Determinants of Health Will the patient participate in the screening: Yes Do you worry about a steady place to live?: No Do you have any problems with any of the following?: No known problems In the past 12 months,have you had to go without utilities?: No Have you or anyone in your house had to go without enough: No Transportation Issues: No Has anyone in your support network made you feel unsafe?: No Does the patient want assistance with any of the above?: No Medications & Allergies Home Medications: Home Medication List Metformin HCl 1,000 mg PO BID 12/30/15 [History Confirmed 12/06/24] Citalopram Hydrobromide 20 mg* [ceLEXa 20 MG] 20 mg PO DAILY 08/13/16 [History Confirmed 12/06/24] Metoprolol Tartrate 25 mg [Lopressor 25MG Tab] 75 mg PO BID 08/18/16 [History Confirmed 12/06/24] Albuterol 2.5 mg/3 ml Neb [Proventil 2.5 mg/3 ml Neb] 2.5 mg QID 07/08/17 [History Confirmed 12/06/24] Albuterol 8 gm Mdi Hfa [Ventolin Hfa MDI] 90 mcg IH Q4H PRN #1 hfa.aer.ad 10/25/19 [Rx Confirmed 12/06/24] Glipizide 5 mg [Glucotrol 5 MG] 5 mg PO DAILY 12/06/20 [History Confirmed 12/06/24] Bumetanide 1 mg PO UD PRN 10/31/21 [History Confirmed 12/06/24] Dicyclomine HCl 10 mg PO BID 10/31/21 [History Confirmed 12/06/24] Nitroglycerin [Nitrostat] 0.3 mg SL UD PRN 10/31/21 [History Confirmed 12/06/24] Omeprazole 20 mg PO DAILY 10/31/21 [History Confirmed 12/06/24] Acetaminophen [Tylenol Extra Strength] 2 tab PO Q4H PRN 11/03/21 [History Confirmed 12/06/24] Amlodipine Besylate [Norvasc] 10 mg PO DAILY 12/06/24 [History Confirmed ] Oxycodone HCl/Acetaminophen [Oxycodone-Acetaminophen 5-325] 1 tab PO TID PRN 12/06/24 [History Confirmed 12/06/24] Pregabalin 50 mg [Lyrica 50MG] 100 mg PO BID 12/06/24 [History Confirmed 12/06/24] Semaglutide [Ozempic] 2 mg SQ WEEKLY 12/06/24 [History Confirmed 12/06/24] hydroCHLOROthiazide [Hydrochlorothiazide] 25 mg PO DAILY 12/06/24 [History Confirmed 12/06/24] Allergies/Adverse Reactions: Allergies Allergy/AdvReac Type Severity Reaction Status Date / Time codeine [Codeine] Allergy Mild Verified 12/06/24 12:00 flu vaccine 2011- Allergy Mild Verified 12/06/24 12:00 *RETIRED-02/04/13 [flu vaccine [id number] (3 yr +)] pneumococcal vaccine Allergy Verified 12/06/24 12:00 trovafloxacin [Trovafloxacin] Allergy Verified 12/06/24 12:00 duloxetine HCl AdvReac Verified 12/06/24 12:00 [From Cymbalta] hydrocodone bitartrate AdvReac Verified 12/06/24 12:00 [From [place]] milnacipran HCl AdvReac Verified 12/06/24 12:00 [From [place]] Exam - Vitals Vital Signs: Vital Signs - 24 hr Temp Pulse Resp BP BP Pulse Ox 12/07/24 08:24 132 H 28 H 129/72 12/07/24 08:21 122 H 20 129/72 12/07/24 08:00 112 H 19 129/72 12/07/24 07:30 97.9 F 115 H 16 109/72 91 L 12/07/24 07:05 115 H 16 109/72 12/07/24 07:00 104 H 17 125/82 93 L 12/07/24 06:52 116 H 18 91 L 12/07/24 06:05 106 H 20 122/71 12/07/24 06:00 106 H 20 122/71 12/07/24 05:05 131 H 21 130/81 12/07/24 05:00 97.3 F 131 H 21 130/81 12/07/24 04:05 121 H 16 122/73 12/07/24 04:00 121 H 16 122/73 12/07/24 03:00 117 H 16 103/61 12/07/24 02:57 107 H 16 108/79 12/07/24 02:00 107 H 16 108/79 12/07/24 01:57 128 H 14 113/86 12/07/24 01:00 97.9 F 128 H 14 113/86 95 12/07/24 00:57 110 H 18 100/75 12/07/24 00:32 110 H 18 100/75 12/07/24 00:01 110 H 18 100/75 12/07/24 00:00 110 H 18 100/75 12/06/24 23:57 118 H 18 110/66 12/06/24 23:32 118 H 18 110/66 12/06/24 23:00 120 H 19 110/66 89 L 12/06/24 22:57 93 H 15 127/75 12/06/24 22:55 100 H 18 94 L 12/06/24 22:32 91 H 15 127/75 12/06/24 22:01 116 H 20 127/75 93 L 12/06/24 21:57 105 H 17 106/64 12/06/24 21:07 105 H 17 106/64 94 L 12/06/24 21:02 100 H 20 94 L 12/06/24 20:57 106 H 23 104/65 12/06/24 20:00 97.5 F 106 H 23 104/65 93 L 12/06/24 19:57 109 H 16 121/64 12/06/24 19:50 97.5 F 109 H 16 121/64 121/64 93 L 12/06/24 19:34 97 12/06/24 19:20 110 H 18 12/06/24 19:12 121 H 20 12/06/24 19:00 112 H 17 118/88 95 12/06/24 18:10 101 H 17 121/79 96 12/06/24 18:00 111 H 15 127/89 12/06/24 17:50 104 H 16 124/76 96 12/06/24 17:40 115 H 19 124/78 95 12/06/24 17:30 104 H 18 123/73 12/06/24 17:20 99 H 17 114/70 95 12/06/24 17:10 96 H 17 126/89 12/06/24 17:00 106 H 17 107/75 94 L 12/06/24 16:50 109 H 15 132/100 12/06/24 16:40 109 H 20 120/80 12/06/24 16:30 106 H 18 124/69 94 L 12/06/24 16:22 132 H 28 H 12/06/24 16:00 106 H 21 113/80 96 12/06/24 15:00 122 H 16 117/71 96 12/06/24 14:52 111 H 20 134/65 12/06/24 14:00 110 H 29 H 129/81 95 12/06/24 13:57 126 H 19 108/73 12/06/24 13:29 128 H 18 120/92 12/06/24 12:34 133 H 29 H 104/88 96 12/06/24 12:06 146 H 20 130/76 97 12/06/24 12:02 97.5 F 141 H 30 H 130/76 97 General:: alert and oriented x 4, no acute distress HEENT: EOMI, No JVD Cardiovascular Exam: tachycardia, irregular, other (Distant heart sounds. Normal S1 and S2. No murmurs, rubs, or gallops appreciated.) Respiratory Exam: diminished breath sounds, other (Few bibasilar crackles.), No wheezing SpO2: 91 Gastrointestinal/Abdomen Exam: normal bowel sounds Skin Exam: normal color, warm Extremity Exam: edema (Trace above ankles bilaterally.) Neurologic: life sciences manager II-XII grossly intact, No motor deficits Results Vital Signs: Vital Signs - 24 hr Temp Pulse Resp BP BP Pulse Ox 12/07/24 08:24 132 H 28 H 129/72 12/07/24 08:21 122 H 20 129/72 12/07/24 08:00 112 H 19 129/72 12/07/24 07:30 97.9 F 115 H 16 109/72 91 L 12/07/24 07:05 115 H 16 109/72 12/07/24 07:00 104 H 17 125/82 93 L 12/07/24 06:52 116 H 18 91 L 12/07/24 06:05 106 H 20 122/71 12/07/24 06:00 106 H 20 122/71 12/07/24 05:05 131 H 21 130/81 12/07/24 05:00 97.3 F 131 H 21 130/81 12/07/24 04:05 121 H 16 122/73 12/07/24 04:00 121 H 16 122/73 12/07/24 03:00 117 H 16 103/61 12/07/24 02:57 107 H 16 108/79 12/07/24 02:00 107 H 16 108/79 12/07/24 01:57 128 H 14 113/86 12/07/24 01:00 97.9 F 128 H 14 113/86 95 12/07/24 00:57 110 H 18 100/75 12/07/24 00:32 110 H 18 100/75 12/07/24 00:01 110 H 18 100/75 12/07/24 00:00 110 H 18 100/75 12/06/24 23:57 118 H 18 110/66 12/06/24 23:32 118 H 18 110/66 12/06/24 23:00 120 H 19 110/66 89 L 12/06/24 22:57 93 H 15 127/75 12/06/24 22:55 100 H 18 94 L 12/06/24 22:32 91 H 15 127/75 12/06/24 22:01 116 H 20 127/75 93 L 12/06/24 21:57 105 H 17 106/64 12/06/24 21:07 105 H 17 106/64 94 L 12/06/24 21:02 100 H 20 94 L 12/06/24 20:57 106 H 23 104/65 12/06/24 20:00 97.5 F 106 H 23 104/65 93 L 12/06/24 19:57 109 H 16 121/64 12/06/24 19:50 97.5 F 109 H 16 121/64 121/64 93 L 12/06/24 19:34 97 12/06/24 19:20 110 H 18 12/06/24 19:12 121 H 20 12/06/24 19:00 112 H 17 118/88 95 12/06/24 18:10 101 H 17 121/79 96 12/06/24 18:00 111 H 15 127/89 12/06/24 17:50 104 H 16 124/76 96 12/06/24 17:40 115 H 19 124/78 95 12/06/24 17:30 104 H 18 123/73 12/06/24 17:20 99 H 17 114/70 95 12/06/24 17:10 96 H 17 126/89 12/06/24 17:00 106 H 17 107/75 94 L 12/06/24 16:50 109 H 15 132/100 12/06/24 16:40 109 H 20 120/80 12/06/24 16:30 106 H 18 124/69 94 L 12/06/24 16:22 132 H 28 H 12/06/24 16:00 106 H 21 113/80 96 12/06/24 15:00 122 H 16 117/71 96 12/06/24 14:52 111 H 20 134/65 12/06/24 14:00 110 H 29 H 129/81 95 12/06/24 13:57 126 H 19 108/73 12/06/24 13:29 128 H 18 120/92 12/06/24 12:34 133 H 29 H 104/88 96 12/06/24 12:06 146 H 20 130/76 97 12/06/24 12:02 97.5 F 141 H 30 H 130/76 97 Pain Assessment - Last Documented Pain Intensity 4 Pain Scale Used 0-10 Pain Scale Intake and Output: Intake & Output 12/04/24 12/05/24 12/06/24 12/07/24 11:59 11:59 11:59 11:59 Intake Total 2228 Output Total 300 Balance 1928 Weight 121.4 kg LAB: I have reviewed the Labs in IDx. Radiology Exams: Radiology Procedures Category Date Time Status CHEST 2 VIEWS (PA AND LAT) Stat Exams 12/06/24 12:21 Completed ECHO W/2D AND DOPPLER [US] Routine Exams 12/07/24 10:24 Ordered CXR (PA&LAT) 12/06/2024: Lungs are hyperinflated with now minimal lingula subsegmental atelectasis/scarring. Remaining heart and lungs unremarkable. Bony thorax intact again with mild degenerative changes. Regadenoson MPS 09/17/2021: 1. Left ventricular ejection fraction measures 69% which is normal. 2. Left ventricular wall motion appears unremarkable. I did note that the left ventricular cavity appeared mildly prominent, but this would probably be better assessed with echocardiography. 3. No scintigraphic findings are seen to suggest reversible or irreversible myocardial ischemia. Tracing 1 Attestation: I have reviewed this EKG and interpreted as documented below. EKG Narrative: Atrial fibrillation with rapid ventricular response at 145 bpm. Low QRS voltage in precordial leads. Nonspecific ST abnormality. Assessment & Plan (1) Paroxysmal atrial fibrillation Current Visit: Yes Status: Acute Assessment & Plan: New onset approximately 4 days prior to admission. Rate remains rapid on maximum rate diltiazem infusion. Last dose of metoprolol 36 hours ago; thus, withdrawal my be contributing to the RVR. Restart metoprolol tartrate 75 mg twice daily. If ventricular rate better controlled this afternoon, will start diltiazem immediate release 90 mg by mouth every 6 hours to wean off infusion. Then would change to diltazem-CD tomorrow. ECHO scheduled for today. Check TSH in am. She will be managed with systemic anticoagulation and rate control during this hospitalization. She will need to follow-up with her gamemaster, Dr. Maxx Ospina, post discharge to address rhythm control. Code(s): I48.0 - PAROXYSMAL ATRIAL FIBRILLATION (2) CAD (coronary artery disease) Current Visit: Yes Status: Chronic Assessment & Plan: [place] class 0 without angina. Continue aspirin for now. Metoprolol being restarted today. Code(s): I25.10 - ATHSCL HEART DISEASE OF [place] CORONARY ARTERY W/O ANG PCTRS (3) Hypertension Current Visit: No Status: Chronic Qualifiers: Hypertension type: essential hypertension Assessment & Plan: Well controlled. Will follow BP with the addition of metoprolol. target BP 130/80. Code(s): I10 - ESSENTIAL (PRIMARY) HYPERTENSION - Encounter Encounter: "The entirety of this encounter was performed via Telemedicine using audio and visual " Entire encounter was performed via telemedicine. Permission grated by patient for this type of encounter. Case discussed with SWETA Romero MD [facility] [phone]
[2024-12-07] MEDS: Lopressor 25MG Tab PO SCH (10:58)
[2024-12-07] MEDS: ROCEPHIN 1 GM / 100 ML NaCl 1 GM/100 ML IVPB IV SCH (12:06)
[2024-12-07] MEDS: Cardizem 30 MG PO SCH (16:12)
[2024-12-07] MEDS: LYRICA 100MG PO SCH (21:20)
[2024-12-08 05:10] LABS: Hematocrit 32.6 % (34.1-44.9); Hemoglobin 10.6 g/dL (11.2-15.7); Mean Cell Volume 84.9 fL (79.4-94.8); Mean Corpuscular Hemoglobin 27.6 pg (25.6-32.2); Mean Corpuscular Hgb Concent. 32.5 g/dL (32.2-35.5); Mean Platelet Volume 9.5 fL (9.4-12.3); Platelet Count 312 x10^3/uL (182-369); Red Blood Count 3.84 x10^6/uL (3.93-5.22); White Blood Count 6.7 x10^3/uL (3.98-10.04)
[2024-12-08 05:38] LABS: ALBUMIN 3.6 g/dL (3.5-5.0); BILIRUBIN,TOTAL 0.7 mg/dL (0.2-1.3); Calcium 8.9 mg/dL (8.4-10.2); Creatinine 1 0.85 mg/dL (0.52-1.04); EST GLOMERULAR FILTRATION RATE 79.9 ML/MIN; MAGNESIUM 1.6 mg/dL (1.6-2.3); Total Protein 7.1 g/dL (6.3-8.2)
[2024-12-08 08:01] LABS: TSH, 3RD Generation 0.745 mIU/L (0.470-4.680)
[2024-12-08] MEDS: MAG-OX 400 PO ONE (08:24)
[2024-12-08] MEDS: Sodium Chloride 0.9% 1000 ML 1,000 ML IV SCH (08:25)
[2024-12-08] MEDS: SODIUM BICARBONATE PO SCH (09:41)
[2024-12-08] MEDS ORDERED: MAG-OX 400 PO ONE (10:59)
[2024-12-08 11:12] LABS: 027 TOX PROD PRESUMPTIVE NEGATIVE (NEGATIVE); TOXIGENIC C. DIFF ORG NEGATIVE (NEGATIVE)
[2024-12-08] MEDS: Lomotil PO ONE (11:22)
[2024-12-08] MEDS: Cardizem CD PO SCH (11:25)
--- NOTE | 2024-12-08 12:43 | PCM.DS ---
Discharge Summary Date of Admission: 12/06/24 19:50 Date of Discharge: 12/08/24 Admitting Physician: TEODORA COOPER MD Consults: Consults on Case 12/07/24 07:35 Consult Cardiology ROUTINE 12/07/24 11:22 Nutritional Consult ROUTINE Primary Care Provider: LILIANA SANCHEZ MD Allergies Allergies codeine [Codeine] Allergy (Mild, Verified 12/06/24 12:00) flu vaccine 2010- *RETIRED-02/04/13 [flu vaccine [id number] (3 yr +)] Allergy (Mild, Verified 12/06/24 12:00) pneumococcal vaccine Allergy (Verified 12/06/24 12:00) trovafloxacin [Trovafloxacin] Allergy (Verified 12/06/24 12:00) duloxetine HCl [From Cymbalta] Adverse Reaction (Verified 12/06/24 12:00) hydrocodone bitartrate [From [place]] Adverse Reaction (Verified 12/06/24 12:00) milnacipran HCl [From [place]] Adverse Reaction (Verified 12/06/24 12:00) Hospital Summary - Hospital Course Hospital Course: 12/07/24 Ms. EDUARDO is a is a 59-year-old female with a past medical history significant for hypertension, hyperlipidemia, diabetes, and a previous history of tachycardia that required a Holter monitor. She presented to the hospital on 12/06/23 with complaints of fever up to 104F, chills, and a nonproductive cough. She reports not eating or drinking as usual. Upon arrival, the patient was found to be tachycardic, with heart rates ranging from 120-150 beats per minute, requiring initiation of a Cardizem drip. Her labs were notable for a potassium level of 3.4 and a creatinine of 1.1. The patient takes hydrochlorothiazide (HCTZ) daily and uses Bumex as needed. On examination, she is resting in bed, awake, and alert, with no current fever or chills. She denies chest pain, shortness of breath, nausea, vomiting, diarrhea, dysuria, hematuria, or urgency. Today, the patient continues to be in atrial fibrillation with rapid ventricular response (Afib RVR) with a heart rate in the 120s, requiring ongoing Cardizem drip. Cardiology has been consulted. The patient reports a history of refusing warfarin but is now willing to try Eliquis, which will be started today. Case management was involved in discussing the plan, and medication coverage for Eliquis should be addressed for outpatient use. Potassium was replaced, and a repeat lactic acid level is within normal limits. Urine culture and blood cultures (x2) are pending. The patient is eager to be discharged today and has been informed that discharge will be contingent upon better control of her heart rate. She has not had a fever since admission. She denies CP, SOB, abd. pain, N/V/D. 12/08/24 Today pt reports she is feeling better but has continued SOB. She is having diarrhea and C-dif negative so lomotil started. Cardizem gtt stopped at 1900 last night. She was transitioned to PO meds today. HR controlled A-fib today. Pt is adamant about leaving today. CO2 18 and anion gap 16. Started IVF and sodium bicarb. Will recheck labs this afternoon if improved janie d/c. UC + for e-coli and ramsey-sensitive. will continue OP antibiotics. Echo EF 69%. She denies CP, Abd. pain, N/V. - Vitals & Intake/Output Vital Signs: Vital Signs Temperature 97.0 F 12/08/24 11:30 Pulse Rate 70 12/08/24 11:30 Respiratory Rate 20 12/08/24 11:30 Blood Pressure 118/68 12/08/24 11:30 O2 Sat by Pulse Oximetry 96 12/08/24 11:30 Intake & Output: Intake & Output 12/06/24 12/07/24 12/08/24 12/09/24 11:59 11:59 11:59 11:59 Intake Total 2708 2475 Output Total 300 Balance 2408 2475 Weight 121.4 kg - Lab Result Diagrams: 12/08/24 05:06 12/08/24 05:06 Lab Results-Last 24 Hrs: Lab Results-Last 24 Hours 12/07/24 12/07/24 12/07/24 Range/Units 12:35 16:14 17:22 WBC (3.98-10.04) x10^3/uL RBC (3.93-5.22) x10^6/uL Hgb (11.2-15.7) g/dL Hct (34.1-44.9) % MCV (79.4-94.8) fL MCH (25.6-32.2) pg MCHC (32.2-35.5) g/dL RDW (11.7-14.4) % Plt Count (182-369) x10^3/uL MPV (9.4-12.3) fL Sodium (135-145) mmol/L Potassium 3.6 4.0 (3.5-5.1) mmol/L Chloride (98-107) mmol/L Carbon Dioxide (22-30) mmol/L Anion Gap (5-15) MEQ/L BUN (7-17) mg/dL Creatinine (0.52-1.04) mg/dL Estimated GFR ML/MIN Glucose (74-106) mg/dL POC Glucometer 176 H (74 to 106) mg/dL Calcium (8.4-10.2) mg/dL Magnesium (1.6-2.3) mg/dL Total Bilirubin (0.2-1.3) mg/dL AST (14-36) U/L ALT (0-35) U/L Alkaline Phosphatase (38-126) U/L Serum Total Protein (6.3-8.2) g/dL Albumin (3.5-5.0) g/dL TSH 3rd Generation (0.470-4.680) mIU/L C. difficile Screen (NEGATIVE) C.difficile 027-NAP1-B1 (NEGATIVE) 12/07/24 12/08/24 12/08/24 Range/Units 21:14 05:06 05:06 WBC 6.7 (3.98-10.04) x10^3/uL RBC 3.84 L (3.93-5.22) x10^6/uL Hgb 10.6 L (11.2-15.7) g/dL Hct 32.6 L (34.1-44.9) % MCV 84.9 (79.4-94.8) fL MCH 27.6 (25.6-32.2) pg MCHC 32.5 (32.2-35.5) g/dL RDW 14.0 (11.7-14.4) % Plt Count 312 (182-369) x10^3/uL MPV 9.5 (9.4-12.3) fL Sodium 138 (135-145) mmol/L Potassium 4.0 (3.5-5.1) mmol/L Chloride 108 H (98-107) mmol/L Carbon Dioxide 18 L (22-30) mmol/L Anion Gap 16.0 H (5-15) MEQ/L BUN 18 H (7-17) mg/dL Creatinine 0.85 (0.52-1.04) mg/dL Estimated GFR 79.9 ML/MIN Glucose 176 H (74-106) mg/dL POC Glucometer 166 H (74 to 106) mg/dL Calcium 8.9 (8.4-10.2) mg/dL Magnesium 1.6 (1.6-2.3) mg/dL Total Bilirubin 0.70 (0.2-1.3) mg/dL AST 23 (14-36) U/L ALT 20 (0-35) U/L Alkaline Phosphatase 93 (38-126) U/L Serum Total Protein 7.1 (6.3-8.2) g/dL Albumin 3.6 (3.5-5.0) g/dL TSH 3rd Generation 0.745 (0.470-4.680) mIU/L C. difficile Screen (NEGATIVE) C.difficile 027-NAP1-B1 (NEGATIVE) 12/08/24 12/08/24 12/08/24 Range/Units 07:48 10:25 11:22 WBC (3.98-10.04) x10^3/uL RBC (3.93-5.22) x10^6/uL Hgb (11.2-15.7) g/dL Hct (34.1-44.9) % MCV (79.4-94.8) fL MCH (25.6-32.2) pg MCHC (32.2-35.5) g/dL RDW (11.7-14.4) % Plt Count (182-369) x10^3/uL MPV (9.4-12.3) fL Sodium (135-145) mmol/L Potassium (3.5-5.1) mmol/L Chloride (98-107) mmol/L Carbon Dioxide (22-30) mmol/L Anion Gap (5-15) MEQ/L BUN (7-17) mg/dL Creatinine (0.52-1.04) mg/dL Estimated GFR ML/MIN Glucose (74-106) mg/dL POC Glucometer 146 H 246 H (74 to 106) mg/dL Calcium (8.4-10.2) mg/dL Magnesium (1.6-2.3) mg/dL Total Bilirubin (0.2-1.3) mg/dL AST (14-36) U/L ALT (0-35) U/L Alkaline Phosphatase (38-126) U/L Serum Total Protein (6.3-8.2) g/dL Albumin (3.5-5.0) g/dL TSH 3rd Generation (0.470-4.680) mIU/L C. difficile Screen NEGATIVE (NEGATIVE) C.difficile 027-NAP1-B1 PRESUMPTIVE NEGATIVE (NEGATIVE) Micro Results-Entire Visit: Microbiology 12/06/24 13:37 Urine Culture - Final Clean Catch Midstream Escherichia Coli 12/06/24 12:52 Blood Culture - Preliminary Blood 12/06/24 12:42 Blood Culture - Preliminary Blood Accuchecks Date 12/08/24 Date 12/07/24 Date 12/07/24 Time 08:34 Time 16:25 Time 16:25 - Radiology Exams Ordered Rad Exams-Entire Visit: Radiology Procedures Category Date Time Status CHEST 2 VIEWS (PA AND LAT) Stat Exams 12/06/24 12:21 Completed ECHO W/2D AND DOPPLER [US] Routine Exams 12/07/24 10:24 Taken - Procedures and Test Procedures and Tests throughout Hospitalization: Therapy Orders & Screens 12/06/24 21:27 RT Screen per Nursing Assess ONCE Comment: Protocol Order Physician Instructions: Greater than 3 points order RT Admission Screen Reason For Exam: Triggered on Admission Diagnosis: afib RVR, UTI Diagnosis: afib RVR, UTI Pneumonia: No Home O2: No Asthma: Yes CHF: No Home CPAP/BIPAP: Yes Home Nebs/MDI: Yes Total Points: 14 12/06/24 22:00 Respiratory Therapy Consult ONCE Comment: Reason For Exam: Diagnosis: afib RVR, UTI 12/06/24 22:49 Respiratory Therapy Assessment DAILY Comment: Diagnosis: afib RVR, UTI Discharge Exam General Appearance: no apparent distress, alert, obese Neurologic Exam: alert, oriented x 3, cooperative, normal mood/affect, nml cerebellar function, sensation nml, No motor deficits Eye Exam: PERRL, EOMI, eyes nml inspection Ears, Nose, Throat Exam: normal ENT inspection, pharynx normal, moist mucous membranes Neck Exam: normal inspection, non-tender, supple, full range of motion Respiratory Exam: normal breath sounds, lungs clear, No respiratory distress Cardiovascular Exam: regular rate/rhythm, normal heart sounds Gastrointestinal/Abdomen Exam: soft, No tenderness, No mass Pelvic Exam: deferred Rectal Exam: deferred Back Exam: normal inspection, normal range of motion, No CVA tenderness, No vertebral tenderness Extremity Exam: normal inspection, normal range of motion Skin Exam: normal color, warm, dry Final Diagnosis/Problem List - Final Discharge Diagnosis/Problem (1) Atrial fibrillation with RVR Current Visit: Yes Status: Acute Code(s): I48.91 - UNSPECIFIED ATRIAL FIBRILLATION (2) Type II diabetes mellitus Current Visit: Yes Status: Acute (3) UTI (urinary tract infection) Current Visit: Yes Status: Acute Code(s): N39.0 - URINARY TRACT INFECTION, SITE NOT SPECIFIED (4) Depression with anxiety Current Visit: Yes Status: Chronic Code(s): F41.8 - OTHER SPECIFIED ANXIETY DISORDERS (5) Rheumatoid arthritis Current Visit: Yes Status: Chronic Code(s): M06.9 - RHEUMATOID ARTHRITIS, UNSPECIFIED (6) CAD (coronary artery disease) Current Visit: Yes Code(s): I25.10 - ATHSCL HEART DISEASE OF [place] CORONARY ARTERY W/O ANG PCTRS (7) Hx TIA/stroke w/o resid Current Visit: Yes Code(s): Z86.73 - PRSNL HX OF TIA (TIA), AND CEREB INFRC W/O RESID DEFICITS (8) Hypokalemia Current Visit: Yes Status: Acute Code(s): E87.6 - HYPOKALEMIA (9) Hypertension Current Visit: No Status: Chronic Code(s): I10 - ESSENTIAL (PRIMARY) HYPERTENSION (10) Morbid obesity with BMI of 40.0-44.9, adult Current Visit: Yes Status: Chronic Assessment & Plan: (1) Atrial fibrillation with RVR Current Visit: Yes Status: Acute Assessment & Plan: - EKG - ECHO - ICU-Tele - cardizem gtt - Denies CP - + activity intolerance- consider PT Eval - Pt reports a hx of a-fib but refused warfarin in the past- Ok with transitioning to Eliquis today BID - Pt has a hx of CVA and PA - Education provided at length need for blood thinner. - Cardiology consult - Keep K+>4 and Mg > 2- both replaced today. - TSH - WNL 12/08 - Mg+ 1.63- replaced - CBC, CMP reviewed - HR controlled a-fib - Cardiology note reviewed and meds changed per recs - Pt to f/u with Dr. Ospina after d/c - Eliquid BID Code(s): I48.91 - UNSPECIFIED ATRIAL FIBRILLATION (2) Type II diabetes mellitus Current Visit: Yes Status: Acute Assessment & Plan: - A1C 7.65- uncontrolled - Nutrition consult for uncontrolled Type II DM - Continue DM meds - ADA diet - Accuchecks ac/hs - Education provided on long winder tender effects of uncontrolled HTN (3) UTI (urinary tract infection) Current Visit: Yes Status: Acute Qualifiers: Qualified Code(s): N30.00 - Acute cystitis without hematuria Assessment & Plan: - IV antibiotic gave in ER- continue IP - UC pending - CBC, CMP reviewed - UC gram negative sensitivity pending - No fever since admission - BC X2 negative 12/08 - UC + e-coli- ramsey-sensitive Code(s): N39.0 - URINARY TRACT INFECTION, SITE NOT SPECIFIED (4) Depression with anxiety Current Visit: Yes Status: Chronic Assessment & Plan: - Continue home meds Code(s): F41.8 - OTHER SPECIFIED ANXIETY DISORDERS (5) Rheumatoid arthritis Current Visit: Yes Status: Chronic Assessment & Plan: - Continue oral narcotic pain med Code(s): M06.9 - RHEUMATOID ARTHRITIS, UNSPECIFIED (6) CAD (coronary artery disease) Current Visit: Yes Assessment & Plan: - Pt reports hx of PA - Echo - EF 69% - Refused anticoagulation in the past - Continue home meds - Follows Dr. Ospina- cardiology Code(s): I25.10 - ATHSCL HEART DISEASE OF [place] CORONARY ARTERY W/O ANG PCTRS (7) Hx TIA/stroke w/o resid Current Visit: Yes Assessment & Plan: - pt reports taking daily ASA Code(s): Z86.73 - PRSNL HX OF TIA (TIA), AND CEREB INFRC W/O RESID DEFICITS (8) Hypokalemia Current Visit: Yes Status: Acute Assessment & Plan: - K+ 3.3 replaced- trend - Keep K+ > 4 12/08 - K+ 4.0 Code(s): E87.6 - HYPOKALEMIA (9) Hypertension Current Visit: No Status: Chronic Assessment & Plan: - BP stable - Cont home meds - Pt became hypotensive with cardizem gtt last night and NS @ 50 ml/hr started- IVF stopped today as BP stable. 12/08 -BP stable Code(s): I10 - ESSENTIAL (PRIMARY) HYPERTENSION (10) Morbid obesity with BMI of 40.0-44.9, adult Current Visit: Yes Status: Chronic Assessment & Plan: - Advised ADA diet and exercise control Code(s): E66.01 - MORBID (SEVERE) OBESITY DUE TO EXCESS CALORIES; Z68.41 - BODY MASS INDEX [BMI] 40.0-44.9, ADULT (11) Diarrhea Current Visit: Yes Status: Acute Assessment & Plan: - C-diff negative - lomotil PRN - probiotics Code(s): R19.7 - DIARRHEA, UNSPECIFIED - Discharge Discharge Date: 12/08/24 Disposition: Home, Self-Care Condition: Fair Prescriptions: New Apixaban [Eliquis] 5 mg PO BID 30 Days #60 tablet Continue Metformin HCl 1,000 mg PO BID Citalopram Hydrobromide 20 mg* [ceLEXa 20 MG] 20 mg PO DAILY Metoprolol Tartrate 25 mg [Lopressor 25MG Tab] 75 mg PO BID Albuterol 2.5 mg/3 ml Neb [Proventil 2.5 mg/3 ml Neb] 2.5 mg QID Albuterol 8 gm Mdi Hfa [Ventolin Hfa MDI] 90 mcg IH Q4H PRN #1 hfa.[id number].[id number] PRN Reason: Shortness Of Breath Glipizide 5 mg [Glucotrol 5 MG] 5 mg PO DAILY Bumetanide 1 mg PO UD PRN PRN Reason: Swelling/SOB Nitroglycerin [Nitrostat] 0.3 mg SL UD PRN PRN Reason: Chest Pain Omeprazole 20 mg PO DAILY Dicyclomine HCl 10 mg PO BID Acetaminophen [Tylenol Extra Strength] 2 tab PO Q4H PRN PRN Reason: Pain hydroCHLOROthiazide [Hydrochlorothiazide] 25 mg PO DAILY Oxycodone HCl/Acetaminophen [Oxycodone-Acetaminophen 5-325] 1 tab PO TID PRN PRN Reason: Pain Semaglutide [Ozempic] 2 mg SQ WEEKLY Pregabalin 50 mg [Lyrica 50MG] 100 mg PO BID Amlodipine Besylate [Norvasc] 10 mg PO DAILY Instructions: Apixaban, Atrial fibrillation - Discharge instructions Additional Instructions: Keep a log of blood pressure and HR and take with you when you follow up with [facility]. You can buy probiotics and medication for diarrhea OTC. Please follow directions on box and do not exceed daily dosing. Follow up with: RENZO GONZALEZ FNP [NON-STAFF PHY W/O PRIVILEGES] - 12/17/24 1:15 pm ('S NURSE PRACTITIONER) LILIANA SANCHEZ MD [Primary Care Provider] - 12/15/24 8:40 am Forms: Discharge Instructions
[2024-12-08 14:38] LABS: ALBUMIN 3.3 g/dL (3.5-5.0); ANION GAP 14.4 MEQ/L (5-15); BILIRUBIN,TOTAL 0.5 mg/dL (0.2-1.3); Creatinine 1 0.76 mg/dL (0.52-1.04); EST GLOMERULAR FILTRATION RATE 91.3 ML/MIN; MAGNESIUM 1.5 mg/dL (1.6-2.3); Potassium 3.8 mmol/L (3.5-5.1); Total Protein 6.6 g/dL (6.3-8.2)
[2024-12-08] MEDS: Klor Con PO ONE (15:09)
[2024-12-08] MEDS: Magnesium 1 Gm / 100 Ml D5W*** 100 ML IV ONE (15:10)
--- NOTE | 2024-12-08 16:53 | PCM.NOTE ---
Date and Time: 12/08/24 1650 Subjective Assessment: 12/07/24 Ms. JAYCE virgen a is a 59-year-old female with a past medical history significant for hypertension, hyperlipidemia, diabetes, and a previous history of tachycardia that required a Holter monitor. She presented to the hospital on 12/06/23 with complaints of fever up to 104F, chills, and a nonproductive cough. She reports not eating or drinking as usual. Upon arrival, the patient was found to be tachycardic, with heart rates ranging from 120-150 beats per minute, requiring initiation of a Cardizem drip. Her labs were notable for a potassium level of 3.4 and a creatinine of 1.1. The patient takes hydrochlorothiazide (HCTZ) daily and uses Bumex as needed. On examination, she is resting in bed, awake, and alert, with no current fever or chills. She denies chest pain, shortness of breath, nausea, vomiting, diarrhea, dysuria, hematuria, or urgency. Today, the patient continues to be in atrial fibrillation with rapid ventricular response (Afib RVR) with a heart rate in the 120s, requiring ongoing Cardizem drip. Cardiology has been consulted. The patient reports a history of refusing warfarin but is now willing to try Eliquis, which will be started today. Case management was involved in discussing the plan, and medication coverage for Eliquis should be addressed for outpatient use. Potassium was replaced, and a repeat lactic acid level is within normal limits. Urine culture and blood cultures (x2) are pending. The patient is eager to be discharged today and has been informed that discharge will be contingent upon better control of her heart rate. She has not had a fever since admission. She denies CP, SOB, abd. pain, N/V/D. 12/08/24 Today pt reports she is feeling better but has continued SOB. She is having diarrhea and C-dif negative so lomotil started. Cardizem gtt stopped at 1900 last night. She was transitioned to PO meds today. HR controlled A-fib today. Pt is adamant about leaving today but agreeable to stay after reapeat labs somewhat worse this after noon.. CO2 18 and anion gap 16 this AM. Repeat Co2 17 and Magnesium low. Anion gap now WNL. Worse labs are most likely 2:2 diarrhea and she is now on medication for this and probiotics since c-diff negative. Started IVF and sodium bicarb. Will recheck labs this afternoon if improved janie d/c. UC + for e-coli and ramsey-sensitive. will continue OP antibiotics. Echo EF 69%. She denies CP, Abd. pain, N/V. - Review of Systems Constitutional: No Fever, No Chills Eyes: No Symptoms Ears, Nose, & Throat: No Symptoms Respiratory: Short Of Breath, No Cough Cardiac: No Chest Pain, No Edema, No Syncope Abdominal/Gastrointestinal: Diarrhea, No Abdominal Pain, No Nausea, No Vomiting Genitourinary Symptoms: No Dysuria Musculoskeletal: No Back Pain, No Neck Pain Skin: No Rash Neurological: No Dizziness, No Focal Weakness, No Sensory Changes Psychological: No Symptoms Endocrine: No Symptoms Hematologic/Lymphatic: No Symptoms Immunological/Allergic: No Symptoms Objective Exam General Appearance: no apparent distress, alert, obese Neurologic Exam: alert, oriented x 3, cooperative, normal mood/affect, nml cerebellar function, sensation nml, No motor deficits Skin Exam: normal color, warm, dry Eye Exam: PERRL, EOMI, eyes nml inspection Ears, Nose, Throat Exam: normal ENT inspection, pharynx normal, moist mucous membranes Neck Exam: normal inspection, non-tender, supple, full range of motion Respiratory Exam: normal breath sounds, lungs clear, No respiratory distress Cardiovascular Exam: regular rate/rhythm, normal heart sounds Gastrointestinal/Abdomen Exam: soft, No tenderness, No mass Extremity Exam: normal inspection, normal range of motion Back Exam: normal inspection, normal range of motion, No CVA tenderness, No vertebral tenderness Pelvic Exam: deferred Rectal Exam: deferred Objective Data Vital Signs: Vital Signs - 24 hr Temp Pulse Resp BP BP Pulse Ox 12/08/24 16:00 98.5 F 76 17 103/51 95 12/08/24 11:30 97.0 F 70 20 118/68 96 12/08/24 09:39 97.8 F 89 19 125/89 94 L 12/08/24 09:30 83 23 12/08/24 09:24 87 15 12/08/24 09:10 78 33 H 95 12/08/24 09:00 80 27 H 95 12/08/24 08:50 74 24 96 12/08/24 08:47 96 H 14 12/08/24 08:30 90 22 12/08/24 08:20 81 24 12/08/24 08:10 81 16 12/08/24 08:02 83 19 12/08/24 07:36 84 12/08/24 07:29 83 14 99/61 95 12/08/24 07:27 93 H 17 91 L 12/08/24 07:20 83 13 12/08/24 07:10 75 14 12/08/24 07:00 82 14 12/08/24 06:10 85 14 12/08/24 06:00 85 14 110/62 12/08/24 05:50 83 23 12/08/24 05:40 86 15 12/08/24 05:30 76 15 12/08/24 05:20 72 15 12/08/24 05:10 82 15 12/08/24 05:03 85 15 12/08/24 04:30 86 17 97/63 95 12/08/24 04:00 75 15 112/59 97 12/08/24 03:30 74 18 102/59 95 12/08/24 03:00 62 18 97/64 95 12/08/24 02:30 73 16 105/69 97 12/08/24 02:00 81 16 105/64 97 12/08/24 01:30 82 20 117/84 12/08/24 01:20 80 29 H 12/08/24 01:10 83 15 12/08/24 01:03 73 24 12/08/24 00:30 77 19 103/73 97 12/08/24 00:01 82 12/08/24 00:00 82 15 100/72 98 12/07/24 23:30 81 13 106/80 96 12/07/24 23:00 83 15 132/71 95 12/07/24 22:30 93 H 15 112/83 97 12/07/24 22:00 80 18 104/73 02 21:30 74 22 120/72 12/07/24 21:20 79 16 12/07/24 21:10 80 17 12/07/24 21:00 75 15 12/07/24 20:50 76 18 12/07/24 20:40 85 22 12/07/24 20:33 72 10 L 12/07/24 20:00 81 14 119/90 97 12/07/24 19:30 73 17 108/73 12/07/24 19:12 64 16 96 12/07/24 19:00 85 17 130/78 12/07/24 18:50 68 14 118/72 12/07/24 18:40 77 23 12/07/24 18:34 74 20 12/07/24 18:00 73 18 124/68 12/07/24 17:30 74 22 123/77 12/07/24 17:18 85 21 122/83 12/07/24 17:01 87 17 122/ Pain Assessment - Last Documented Pain Intensity 0 Pain Scale Used 0-10 Pain Scale Intake and Output: Intake & Output 12/06/24 12/07/24 12/08/24 12/09/24 11:59 11:59 11:59 11:59 Intake Total 2708 2475 820 Output Total 300 Balance 2408 2475 820 Weight 121.4 kg Lab Results: Lab Results-Last 24 Hours 12/07/24 12/07/24 12/08/24 Range/Units 17:22 21:14 05:06 WBC 6.7 (3.98-10.04) x10^3/uL RBC 3.84 L (3.93-5.22) x10^6/uL Hgb 10.6 L (11.2-15.7) g/dL Hct 32.6 L (34.1-44.9) % MCV 84.9 (79.4-94.8) fL MCH 27.6 (25.6-32.2) pg MCHC 32.5 (32.2-35.5) g/dL RDW 14.0 (11.7-14.4) % Plt Count 312 (182-369) x10^3/uL MPV 9.5 (9.4-12.3) fL Sodium (135-145) mmol/L Potassium 4.0 (3.5-5.1) mmol/L Chloride (98-107) mmol/L Carbon Dioxide (22-30) mmol/L Anion Gap (5-15) MEQ/L BUN (7-17) mg/dL Creatinine (0.52-1.04) mg/dL Estimated GFR ML/MIN Glucose (74-106) mg/dL POC Glucometer 166 H (74 to 106) mg/dL Calcium (8.4-10.2) mg/dL Magnesium (1.6-2.3) mg/dL Total Bilirubin (0.2-1.3) mg/dL AST (14-36) U/L ALT (0-35) U/L Alkaline Phosphatase (38-126) U/L Serum Total Protein (6.3-8.2) g/dL Albumin (3.5-5.0) g/dL TSH 3rd Generation (0.470-4.680) mIU/L C. difficile Screen (NEGATIVE) C.difficile 027-NAP1-B1 (NEGATIVE) 12/08/24 12/08/24 12/08/24 Range/Units 05:06 07:48 10:25 WBC (3.98-10.04) x10^3/uL RBC (3.93-5.22) x10^6/uL Hgb (11.2-15.7) g/dL Hct (34.1-44.9) % MCV (79.4-94.8) fL MCH (25.6-32.2) pg MCHC (32.2-35.5) g/dL RDW (11.7-14.4) % Plt Count (182-369) x10^3/uL MPV (9.4-12.3) fL Sodium 138 (135-145) mmol/L Potassium 4.0 (3.5-5.1) mmol/L Chloride 108 H (98-107) mmol/L Carbon Dioxide 18 L (22-30) mmol/L Anion Gap 16.0 H (5-15) MEQ/L BUN 18 H (7-17) mg/dL Creatinine 0.85 (0.52-1.04) mg/dL Estimated GFR 79.9 ML/MIN Glucose 176 H (74-106) mg/dL POC Glucometer 146 H (74 to 106) mg/dL Calcium 8.9 (8.4-10.2) mg/dL Magnesium 1.6 (1.6-2.3) mg/dL Total Bilirubin 0.70 (0.2-1.3) mg/dL AST 23 (14-36) U/L ALT 20 (0-35) U/L Alkaline Phosphatase 93 (38-126) U/L Serum Total Protein 7.1 (6.3-8.2) g/dL Albumin 3.6 (3.5-5.0) g/dL TSH 3rd Generation 0.745 (0.470-4.680) mIU/L C. difficile Screen NEGATIVE (NEGATIVE) C.difficile 027-NAP1-B1 PRESUMPTIVE NEGATIVE (NEGATIVE) 12/08/24 12/08/24 12/08/24 Range/Units 11:22 14:24 16:35 WBC (3.98-10.04) x10^3/uL RBC (3.93-5.22) x10^6/uL Hgb (11.2-15.7) g/dL Hct (34.1-44.9) % MCV (79.4-94.8) fL MCH (25.6-32.2) pg MCHC (32.2-35.5) g/dL RDW (11.7-14.4) % Plt Count (182-369) x10^3/uL MPV (9.4-12.3) fL Sodium 138 (135-145) mmol/L Potassium 3.8 (3.5-5.1) mmol/L Chloride 110 H (98-107) mmol/L Carbon Dioxide 17 L (22-30) mmol/L Anion Gap 14.4 (5-15) MEQ/L BUN 17 (7-17) mg/dL Creatinine 0.76 (0.52-1.04) mg/dL Estimated GFR 91.3 ML/MIN Glucose 164 H (74-106) mg/dL POC Glucometer 246 H 186 H (74 to 106) mg/dL Calcium 8.0 L (8.4-10.2) mg/dL Magnesium 1.5 L (1.6-2.3) mg/dL Total Bilirubin 0.50 (0.2-1.3) mg/dL AST 23 (14-36) U/L ALT 22 (0-35) U/L Alkaline Phosphatase 75 (38-126) U/L Serum Total Protein 6.6 (6.3-8.2) g/dL Albumin 3.3 L (3.5-5.0) g/dL TSH 3rd Generation (0.470-4.680) mIU/L C. difficile Screen (NEGATIVE) C.difficile 027-NAP1-B1 (NEGATIVE) Radiology Exams: Radiology Procedures Category Date Time Status ECHO W/2D AND DOPPLER [US] Routine Exams 12/07/24 10:24 Taken Multi-Disciplinary Progress Notes: Multi-Disciplinary Progress Notes 12/08/24 12:50 Radiology Note by JOSE MARIA LEI TRANSTHORACIC ECHOCARDIOGRAM 12/08/2024: 1. Limited parasternal and subcostal windows. 2. Mildly dilated left and right atria. Normal ventricular chamber sizes. 3. Mild concentric left ventricular hypertrophy. 4. Normal left ventricular systolic function without obvious wall motion abnormalites. Estimated EF 55-60%. 5. Unable to determine grade of diastolic dysfunction due to underlyihng atrial fibrillation. 6. Normal right ventricular systolic function. 7. Mild aortic sclerosis without stenosis. 8. Doppler: Mild mitral regurgitation. 9. Unable to estimate PA systolic pressure or right atrial pressure. 10. No pericardial effusion. Jose Maria Lei MD [facility] Initialized on 12/08/24 12:50 - END OF NOTE 12/08/24 11:00 (created 12/08/24 14:00) Case Management Note by Katiuska Gurrola S/W MISTY SERRA RX $0 COPAY Initialized on 12/08/24 14:00 - END OF NOTE 12/08/24 11:00 (created 12/08/24 14:02) Case Management Note by Katiuska Gurrola Addendum entered by Katiuska Gurrola 12/08/24 14:03: S/W NURSE- PATIENT HAS B/P CUFF AT HOME Original Note: S/W PATIENT- SHE CONTINUES TO DENY ANY NEW NEED AT TIME OF DC. SHE PLANS TO DC HOME WITH HER AT TIME OF DC. Initialized on 12/08/24 14:02 - END OF NOTE Assessment/Plan (1) Atrial fibrillation with RVR Current Visit: Yes Status: Acute Code(s): I48.91 - UNSPECIFIED ATRIAL FIBRILLATION (2) Type II diabetes mellitus Current Visit: Yes Status: Acute (3) UTI (urinary tract infection) Current Visit: Yes Status: Acute Qualifiers: Urinary tract infection type: acute cystitis Hematuria presence: without hematuria Qualified Code(s): N30.00 - Acute cystitis without hematuria Code(s): N39.0 - URINARY TRACT INFECTION, SITE NOT SPECIFIED (4) Depression with anxiety Current Visit: Yes Status: Chronic Code(s): F41.8 - OTHER SPECIFIED ANXIETY DISORDERS (5) Rheumatoid arthritis Current Visit: Yes Status: Chronic Code(s): M06.9 - RHEUMATOID ARTHRITIS, UNSPECIFIED (6) CAD (coronary artery disease) Current Visit: Yes Code(s): I25.10 - ATHSCL HEART DISEASE OF [place] CORONARY ARTERY W/O ANG PCTRS (7) Hx TIA/stroke w/o resid Current Visit: Yes Code(s): Z86.73 - PRSNL HX OF TIA (TIA), AND CEREB INFRC W/O RESID DEFICITS (8) Hypokalemia Current Visit: Yes Status: Acute Code(s): E87.6 - HYPOKALEMIA (9) Hypertension Current Visit: No Status: Chronic Qualifiers: Hypertension type: essential hypertension Code(s): I10 - ESSENTIAL (PRIMARY) HYPERTENSION (10) Morbid obesity with BMI of 40.0-44.9, adult Current Visit: Yes Status: Chronic Code(s): E66.01 - MORBID (SEVERE) OBESITY DUE TO EXCESS CALORIES; Z68.41 - BODY MASS INDEX [BMI] 40.0-44.9, ADULT (11) Diarrhea Current Visit: Yes Status: Acute Assessment & Plan: (1) Atrial fibrillation with RVR Current Visit: Yes Status: Acute Assessment & Plan: - EKG - ECHO - ICU-Tele - cardizem gtt - Denies CP - + activity intolerance- consider PT Eval - Pt reports a hx of a-fib but refused warfarin in the past- Ok with transitioning to Eliquis today BID - Pt has a hx of CVA and [place] - Education provided at length need for blood thinner. - Cardiology consult - Keep K+>4 and Mg > 2- both replaced today. - TSH - WNL 2/25 - Mg+ 1.63- replaced - CBC, CMP reviewed - HR controlled a-fib - Cardiology note reviewed and meds changed per recs - Pt to f/u with Dr. Ospina after d/c - Eliquid BID Code(s): I48.91 - UNSPECIFIED ATRIAL FIBRILLATION (2) Type II diabetes mellitus Current Visit: Yes Status: Acute Assessment & Plan: - A1C 7.65- uncontrolled - Nutrition consult for uncontrolled Type II DM - Continue DM meds - ADA diet - Accuchecks ac/hs - Education provided on intermediate card tender effects of uncontrolled HTN (3) UTI (urinary tract infection) Current Visit: Yes Status: Acute Qualifiers: Qualified Code(s): N30.00 - Acute cystitis without hematuria Assessment & Plan: - IV antibiotic gave in ER- continue IP - UC pending - CBC, CMP reviewed - UC gram negative sensitivity pending - No fever since admission - BC X2 negative 12/08 - UC + e-coli- ramsey-sensitive Code(s): N39.0 - URINARY TRACT INFECTION, SITE NOT SPECIFIED (4) Depression with anxiety Current Visit: Yes Status: Chronic Assessment & Plan: - Continue home meds Code(s): F41.8 - OTHER SPECIFIED ANXIETY DISORDERS (5) Rheumatoid arthritis Current Visit: Yes Status: Chronic Assessment & Plan: - Continue oral narcotic pain med Code(s): M06.9 - RHEUMATOID ARTHRITIS, UNSPECIFIED (6) CAD (coronary artery disease) Current Visit: Yes Assessment & Plan: - Pt reports hx of [place] - Echo - EF 69% - Refused anticoagulation in the past - Continue home meds - Follows Dr. Ospina- cardiology Code(s): I25.10 - ATHSCL HEART DISEASE OF [place] CORONARY ARTERY W/O ANG PCTRS (7) Hx TIA/stroke w/o resid Current Visit: Yes Assessment & Plan: - pt reports taking daily ASA Code(s): Z86.73 - PRSNL HX OF TIA (TIA), AND CEREB INFRC W/O RESID DEFICITS (8) Hypokalemia Current Visit: Yes Status: Acute Assessment & Plan: - K+ 3.3 replaced- trend - Keep K+ > 4 12/08 - K+ 4.0 Code(s): E87.6 - HYPOKALEMIA (9) Hypertension Current Visit: No Status: Chronic Assessment & Plan: - BP stable - Cont home meds - Pt became hypotensive with cardizem gtt last night and NS @ 50 ml/hr started- IVF stopped today as BP stable. 12/08 -BP stable Code(s): I10 - ESSENTIAL (PRIMARY) HYPERTENSION (10) Morbid obesity with BMI of 40.0-44.9, adult Current Visit: Yes Status: Chronic Assessment & Plan: - Advised ADA diet and exercise control Code(s): E66.01 - MORBID (SEVERE) OBESITY DUE TO EXCESS CALORIES; Z68.41 - BODY MASS INDEX [BMI] 40.0-44.9, ADULT (11) Diarrhea Current Visit: Yes Status: Acute Assessment & Plan: - C-diff negative - lomotil PRN - probiotics Code(s): R19.7 - DIARRHEA, UNSPECIFIED Code(s): R19.7 - DIARRHEA, UNSPECIFIED (12) Metabolic acidosis Current Visit: Yes Status: Acute Assessment & Plan: - Repeat CO2 17 - PO sodium bicarb started in the AM- continue - likely 2:2 diarrhea Code(s): E87.20 - ACIDOSIS, UNSPECIFIED (13) Hypomagnesemia Current Visit: Yes Status: Acute Assessment & Plan: - Mg+ 1.5- replaced VTE: Eliquis PPI: Protonix Next of KIN: Spouse, Jg- [phone] D/C plan: 1-2 days Code status:Full Code(s): E83.42 - HYPOMAGNESEMIA
[2024-12-08] MEDS: DUONEB 0.5-3 MG/3 ml Neb IH PRN (18:43)
[2024-12-09 05:55] LABS: Hematocrit 31.3 % (34.1-44.9); Hemoglobin 9.9 g/dL (11.2-15.7); Mean Cell Volume 86.9 fL (79.4-94.8); Mean Corpuscular Hemoglobin 27.5 pg (25.6-32.2); Mean Corpuscular Hgb Concent. 31.6 g/dL (32.2-35.5); Mean Platelet Volume 9.4 fL (9.4-12.3); Platelet Count 300 x10^3/uL (182-369); White Blood Count 7.5 x10^3/uL (3.98-10.04)
[2024-12-09 07:27] LABS: ALBUMIN 3.4 g/dL (3.5-5.0); ANION GAP 14.2 MEQ/L (5-15); BILIRUBIN,TOTAL 0.7 mg/dL (0.2-1.3); Calcium 8.5 mg/dL (8.4-10.2); MAGNESIUM 1.7 mg/dL (1.6-2.3); Total Protein 6.7 g/dL (6.3-8.2)
[2024-12-09 07:29] LABS: Creatinine 1 0.73 mg/dL (0.52-1.04); EST GLOMERULAR FILTRATION RATE 95.9 ML/MIN
[2024-12-09] MEDS: Lomotil PO PRN (07:51)
[2024-12-09] MEDS: Acidophilus TABLET PO SCH (09:23)
--- NOTE | 2024-12-09 11:26 | PCM.DS ---
Discharge Summary Date of Admission: 12/06/24 19:50 Date of Discharge: 12/09/24 Admitting Physician: TEODORA COOPER MD Consults: Consults on Case 12/07/24 07:35 Consult Cardiology ROUTINE 12/07/24 11:22 Nutritional Consult ROUTINE Primary Care Provider: LILIANA SANCHEZ MD Allergies Allergies codeine [Codeine] Allergy (Mild, Verified 12/06/24 12:00) flu vaccine 2010- *RETIRED-02/04/13 [flu vaccine [id number] (3 yr +)] Allergy (Mild, Verified 12/06/24 12:00) pneumococcal vaccine Allergy (Verified 12/06/24 12:00) trovafloxacin [Trovafloxacin] Allergy (Verified 12/06/24 12:00) duloxetine HCl [From Cymbalta] Adverse Reaction (Verified 12/06/24 12:00) hydrocodone bitartrate [From [place]] Adverse Reaction (Verified 12/06/24 12:00) milnacipran HCl [From [place]] Adverse Reaction (Verified 12/06/24 12:00) Hospital Summary - Hospital Course Hospital Course: 12/07/24 Ms. EDUARDO is a is a 59-year-old female with a past medical history significant for hypertension, hyperlipidemia, diabetes, and a previous history of tachycardia that required a Holter monitor. She presented to the hospital on 12/06/23 with complaints of fever up to 104F, chills, and a nonproductive cough. She reports not eating or drinking as usual. Upon arrival, the patient was found to be tachycardic, with heart rates ranging from 120-150 beats per minute, requiring initiation of a Cardizem drip. Her labs were notable for a potassium level of 3.4 and a creatinine of 1.1. The patient takes hydrochlorothiazide (HCTZ) daily and uses Bumex as needed. On examination, she is resting in bed, awake, and alert, with no current fever or chills. She denies chest pain, shortness of breath, nausea, vomiting, diarrhea, dysuria, hematuria, or urgency. Today, the patient continues to be in atrial fibrillation with rapid ventricular response (Afib RVR) with a heart rate in the 120s, requiring ongoing Cardizem drip. Cardiology has been consulted. The patient reports a history of refusing warfarin but is now willing to try Eliquis, which will be started today. Case management was involved in discussing the plan, and medication coverage for Eliquis should be addressed for outpatient use. Potassium was replaced, and a repeat lactic acid level is within normal limits. Urine culture and blood cultures (x2) are pending. The patient is eager to be discharged today and has been informed that discharge will be contingent upon better control of her heart rate. She has not had a fever since admission. She denies CP, SOB, abd. pain, N/V/D. 12/08/24 Today pt reports she is feeling better but has continued SOB. She is having diarrhea and C-dif negative so lomotil started. Cardizem gtt stopped at 1900 last night. She was transitioned to PO meds today. HR controlled A-fib today. Pt is adamant about leaving today but agreeable to stay after reapeat labs somewhat worse this after noon.. CO2 18 and anion gap 16 this AM. Repeat Co2 17 and Magnesium low. Anion gap now WNL. Worse labs are most likely 2:2 diarrhea and she is now on medication for this and probiotics since c-diff negative. Started IVF and sodium bicarb. Will recheck labs this afternoon if improved will d/c. UC + for e-coli and ramsey-sensitive. Will continue OP antibiotics. Echo EF 69%. She denies CP, Abd. pain, N/V. 12/09/24 Pt resting in the chair. She continues to have diarrhea after she eats. She reports she does not have her gallbladder. Diarrhea started prior to admission with viral infection. Will have pt continue probiotics and anti-diarrheal medications OP. Labs overall improved except CO2 18- will continue sodium bicarb OP. Pt to f/u with Dr. Sanchez Saturday for repeat labs. She continues to have weakness but states she feels much better than when she was admitted. HR controlled A-fib. Will f/u with cardiology OP. She denies any further concerns at this time. - Vitals & Intake/Output Vital Signs: Vital Signs Temperature 97.1 F 12/09/24 08:00 Pulse Rate 81 12/09/24 10:42 Respiratory Rate 16 12/09/24 10:42 Blood Pressure 112/65 12/09/24 08:00 O2 Sat by Pulse Oximetry 94 L 12/09/24 10:42 Intake & Output: Intake & Output 12/06/24 12/07/24 12/08/24 12/09/24 11:59 11:59 11:59 11:59 Intake Total 2702 2475 3699 Output Total 300 Balance 3828 2475 3699 Weight 121.4 kg - Lab Result Diagrams: 12/09/24 05:49 12/09/24 05:49 Lab Results-Last 24 Hrs: Lab Results-Last 24 Hours 12/08/24 12/08/24 12/08/24 Range/Units 11:22 14:24 16:35 WBC (3.98-10.04) x10^3/uL RBC (3.93-5.22) x10^6/uL Hgb (11.2-15.7) g/dL Hct (34.1-44.9) % MCV (79.4-94.8) fL MCH (25.6-32.2) pg MCHC (32.2-35.5) g/dL RDW (11.7-14.4) % Plt Count (182-369) x10^3/uL MPV (9.4-12.3) fL Sodium 138 (135-145) mmol/L Potassium 3.8 (3.5-5.1) mmol/L Chloride 110 H (98-107) mmol/L Carbon Dioxide 17 L (22-30) mmol/L Anion Gap 14.4 (5-15) MEQ/L BUN 17 (7-17) mg/dL Creatinine 0.76 (0.52-1.04) mg/dL Estimated GFR 91.3 ML/MIN Glucose 164 H (74-106) mg/dL POC Glucometer 246 H 186 H (74 to 106) mg/dL Calcium 8.0 L (8.4-10.2) mg/dL Magnesium 1.5 L (1.6-2.3) mg/dL Total Bilirubin 0.50 (0.2-1.3) mg/dL AST 23 (14-36) U/L ALT 22 (0-35) U/L Alkaline Phosphatase 75 (38-126) U/L Serum Total Protein 6.6 (6.3-8.2) g/dL Albumin 3.3 L (3.5-5.0) g/dL 12/08/24 12/09/24 12/09/24 Range/Units 21:30 05:49 05:49 WBC 7.5 (3.98-10.04) x10^3/uL RBC 3.60 L (3.93-5.22) x10^6/uL Hgb 9.9 L (11.2-15.7) g/dL Hct 31.3 L (34.1-44.9) % MCV 86.9 (79.4-94.8) fL MCH 27.5 (25.6-32.2) pg MCHC 31.6 L (32.2-35.5) g/dL RDW 14.0 (11.7-14.4) % Plt Count 300 (182-369) x10^3/uL MPV 9.4 (9.4-12.3) fL Sodium 137 (135-145) mmol/L Potassium 4.0 (3.5-5.1) mmol/L Chloride 109 H (98-107) mmol/L Carbon Dioxide 18 L (22-30) mmol/L Anion Gap 14.2 (5-15) MEQ/L BUN 15 (7-17) mg/dL Creatinine 0.73 (0.52-1.04) mg/dL Estimated GFR 95.9 ML/MIN Glucose 161 H (74-106) mg/dL POC Glucometer 202 H (74 to 106) mg/dL Calcium 8.5 (8.4-10.2) mg/dL Magnesium 1.7 (1.6-2.3) mg/dL Total Bilirubin 0.70 (0.2-1.3) mg/dL AST 24 (14-36) U/L ALT 20 (0-35) U/L Alkaline Phosphatase 83 (38-126) U/L Serum Total Protein 6.7 (6.3-8.2) g/dL Albumin 3.4 L (3.5-5.0) g/dL 12/09/24 12/09/24 Range/Units 07:34 11:03 WBC (3.98-10.04) x10^3/uL RBC (3.93-5.22) x10^6/uL Hgb (11.2-15.7) g/dL Hct (34.1-44.9) % MCV (79.4-94.8) fL MCH (25.6-32.2) pg MCHC (32.2-35.5) g/dL RDW (11.7-14.4) % Plt Count (182-369) x10^3/uL MPV (9.4-12.3) fL Sodium (135-145) mmol/L Potassium (3.5-5.1) mmol/L Chloride (98-107) mmol/L Carbon Dioxide (22-30) mmol/L Anion Gap (5-15) MEQ/L BUN (7-17) mg/dL Creatinine (0.52-1.04) mg/dL Estimated GFR ML/MIN Glucose (74-106) mg/dL POC Glucometer 180 H 225 H (74 to 106) mg/dL Calcium (8.4-10.2) mg/dL Magnesium (1.6-2.3) mg/dL Total Bilirubin (0.2-1.3) mg/dL AST (14-36) U/L ALT (0-35) U/L Alkaline Phosphatase (38-126) U/L Serum Total Protein (6.3-8.2) g/dL Albumin (3.5-5.0) g/dL Micro Results-Entire Visit: Microbiology 12/06/24 13:37 Urine Culture - Final Clean Catch Midstream Escherichia Coli 12/06/24 12:52 Blood Culture - Preliminary Blood 12/06/24 12:42 Blood Culture - Preliminary Blood Accuchecks Date 12/09/24 Date 12/08/24 Date 12/08/24 Date 12/08/24 Time 21:37 Time 16:30 - Radiology Exams Ordered Rad Exams-Entire Visit: Radiology Procedures Category Date Time Status ECHO W/2D AND DOPPLER [US] Routine Exams 12/07/24 10:24 Taken - Procedures and Test Procedures and Tests throughout Hospitalization: Therapy Orders & Screens 12/06/24 21:27 RT Screen per Nursing Assess ONCE Comment: Protocol Order Physician Instructions: Greater than 3 points order RT Admission Screen Reason For Exam: Triggered on Admission Diagnosis: afib RVR, UTI Diagnosis: afib RVR, UTI Pneumonia: No Home O2: No Asthma: Yes CHF: No Home CPAP/BIPAP: Yes Home Nebs/MDI: Yes Total Points: 14 12/06/24 22:00 Respiratory Therapy Consult ONCE Comment: Reason For Exam: Diagnosis: afib RVR, UTI 12/06/24 22:49 Respiratory Therapy Assessment DAILY Comment: Diagnosis: afib RVR, UTI Discharge Exam General Appearance: no apparent distress, alert, obese Neurologic Exam: alert, oriented x 3, cooperative, normal mood/affect, nml cerebellar function, sensation nml, motor weakness, No motor deficits Eye Exam: PERRL, EOMI, eyes nml inspection Ears, Nose, Throat Exam: normal ENT inspection, pharynx normal, moist mucous membranes Neck Exam: normal inspection, non-tender, supple, full range of motion Respiratory Exam: normal breath sounds, lungs clear, No respiratory distress Cardiovascular Exam: regular rate/rhythm, normal heart sounds Gastrointestinal/Abdomen Exam: soft, No tenderness, No mass Pelvic Exam: deferred Rectal Exam: deferred Back Exam: normal inspection, normal range of motion, No CVA tenderness, No vertebral tenderness Extremity Exam: normal inspection, normal range of motion Skin Exam: normal color, warm, dry Final Diagnosis/Problem List - Final Discharge Diagnosis/Problem (1) Atrial fibrillation with RVR Current Visit: Yes Status: Acute Code(s): I48.91 - UNSPECIFIED ATRIAL FIBRILLATION (2) Type II diabetes mellitus Current Visit: Yes Status: Acute (3) UTI (urinary tract infection) Current Visit: Yes Status: Acute Code(s): N39.0 - URINARY TRACT INFECTION, SITE NOT SPECIFIED (4) Depression with anxiety Current Visit: Yes Status: Chronic Code(s): F41.8 - OTHER SPECIFIED ANXIETY DISORDERS (5) Rheumatoid arthritis Current Visit: Yes Status: Chronic Code(s): M06.9 - RHEUMATOID ARTHRITIS, UNSPECIFIED (6) CAD (coronary artery disease) Current Visit: Yes Code(s): I25.10 - ATHSCL HEART DISEASE OF [place] CORONARY ARTERY W/O ANG PCTRS (7) Hx TIA/stroke w/o resid Current Visit: Yes Code(s): Z86.73 - PRSNL HX OF TIA (TIA), AND CEREB INFRC W/O RESID DEFICITS (8) Hypokalemia Current Visit: Yes Status: Acute Code(s): E87.6 - HYPOKALEMIA (9) Hypertension Current Visit: No Status: Chronic Code(s): I10 - ESSENTIAL (PRIMARY) HYPERTENSION (10) Morbid obesity with BMI of 40.0-44.9, adult Current Visit: Yes Status: Chronic Code(s): E66.01 - MORBID (SEVERE) OBESITY DUE TO EXCESS CALORIES; Z68.41 - BODY MASS INDEX [BMI] 40.0-44.9, ADULT (11) Diarrhea Current Visit: Yes Status: Acute Code(s): R19.7 - DIARRHEA, UNSPECIFIED (12) Metabolic acidosis Current Visit: Yes Status: Acute Code(s): E87.20 - ACIDOSIS, UNSPECIFIED (13) Hypomagnesemia Current Visit: Yes Status: Acute Assessment & Plan: (1) Atrial fibrillation with RVR Current Visit: Yes Status: Acute Assessment & Plan: - EKG - ECHO - ICU-Tele - cardizem gtt - Denies CP - + activity intolerance- consider PT Eval - Pt reports a hx of a-fib but refused warfarin in the past- Ok with transitioning to Eliquis today BID - Pt has a hx of CVA and IN - Education provided at length need for blood thinner. - Cardiology consult - Keep K+>4 and Mg > 2- both replaced today. - TSH - WNL 12/08 - Mg+ 1.63- replaced - CBC, CMP reviewed - HR controlled a-fib - Cardiology note reviewed and meds changed per recs - Pt to f/u with Dr. Ospina after d/c - Eliquis BID 12/09 - Controlled a-fib Code(s): I48.91 - UNSPECIFIED ATRIAL FIBRILLATION (2) Type II diabetes mellitus Current Visit: Yes Status: Acute Assessment & Plan: - A1C 7.65- uncontrolled - Nutrition consult for uncontrolled Type II DM - Continue DM meds - ADA diet - Accuchecks ac/hs - Education provided on fpc effects of uncontrolled HTN (3) UTI (urinary tract infection) Current Visit: Yes Status: Acute Qualifiers: Qualified Code(s): N30.00 - Acute cystitis without hematuria Assessment & Plan: - IV antibiotic gave in ER- continue IP - UC pending - CBC, CMP reviewed - UC gram negative sensitivity pending - No fever since admission - BC X2 negative 12/08 - UC + e-coli- ramsey-sensitive 12/09 - CBC, CMP reviewed - Cont. OP antibiotics Code(s): N39.0 - URINARY TRACT INFECTION, SITE NOT SPECIFIED (4) Depression with anxiety Current Visit: Yes Status: Chronic Assessment & Plan: - Continue home meds Code(s): F41.8 - OTHER SPECIFIED ANXIETY DISORDERS (5) Rheumatoid arthritis Current Visit: Yes Status: Chronic Assessment & Plan: - Continue oral narcotic pain med Code(s): M06.9 - RHEUMATOID ARTHRITIS, UNSPECIFIED (6) CAD (coronary artery disease) Current Visit: Yes Assessment & Plan: - Pt reports hx of IN - Echo - EF 69% - Refused anticoagulation in the past - Continue home meds - Follows Dr. Ospina- cardiology Code(s): I25.10 - ATHSCL HEART DISEASE OF [place] CORONARY ARTERY W/O ANG PCTRS (7) Hx TIA/stroke w/o resid Current Visit: Yes Assessment & Plan: - pt reports taking daily ASA Code(s): Z86.73 - PRSNL HX OF TIA (TIA), AND CEREB INFRC W/O RESID DEFICITS (8) Hypokalemia Current Visit: Yes Status: Acute Assessment & Plan: - K+ 3.3 replaced- trend - Keep K+ > 4 12/08 - K+ 3.8- replaced 12/09 - K+ 4.0-ok Code(s): E87.6 - HYPOKALEMIA (9) Hypertension Current Visit: No Status: Chronic Assessment & Plan: - BP stable - Cont home meds - Pt became hypotensive with cardizem gtt last night and NS @ 50 ml/hr started- IVF stopped today as BP stable. 12/08 -BP stable Code(s): I10 - ESSENTIAL (PRIMARY) HYPERTENSION (10) Morbid obesity with BMI of 40.0-44.9, adult Current Visit: Yes Status: Chronic Assessment & Plan: - Advised ADA diet and exercise control Code(s): E66.01 - MORBID (SEVERE) OBESITY DUE TO EXCESS CALORIES; Z68.41 - BODY MASS INDEX [BMI] 40.0-44.9, ADULT (11) Diarrhea Current Visit: Yes Status: Acute Assessment & Plan: - C-diff negative - lomotil PRN - probiotics Code(s): R19.7 - DIARRHEA, UNSPECIFIED Code(s): R19.7 - DIARRHEA, UNSPECIFIED (12) Metabolic acidosis Current Visit: Yes Status: Acute Assessment & Plan: - Repeat CO2 17 - PO sodium bicarb started in the AM- continue - likely 2:2 diarrhea - IVF 12/09 - CO2 18- continue oral sodium bicarb OP - F/U with PCP for repeat labs Saturday. Code(s): E87.20 - ACIDOSIS, UNSPECIFIED (13) Hypomagnesemia Current Visit: Yes Status: Acute Assessment & Plan: - Mg+ 1.5- replaced 12/09 - MG+ 1.7- resolved Code(s): E83.42 - HYPOMAGNESEMIA - Discharge Discharge Date: 12/09/24 Disposition: Home, Self-Care Condition: Fair Prescriptions: New Apixaban [Eliquis] 5 mg PO BID 30 Days #60 tablet cefuroxime axetiL [Cefuroxime] 500 mg PO BID 7 Days #14 tablet dilTIAZem HCL [Cardizem Cd] 180 mg PO DAILY 30 Days #30 cap Sodium Bicarbonate 650 mg PO BID 5 Days #10 tablet Continue Metformin HCl 1,000 mg PO BID Citalopram Hydrobromide 20 mg* [ceLEXa 20 MG] 20 mg PO DAILY Metoprolol Tartrate 25 mg [Lopressor 25MG Tab] 75 mg PO BID Albuterol 2.5 mg/3 ml Neb [Proventil 2.5 mg/3 ml Neb] 2.5 mg QID Albuterol 8 gm Mdi Hfa [Ventolin Hfa MDI] 90 mcg IH Q4H PRN #1 [id number].[id number] PRN Reason: Shortness Of Breath Glipizide 5 mg [Glucotrol 5 MG] 5 mg PO DAILY Bumetanide 1 mg PO UD PRN PRN Reason: Swelling/SOB Nitroglycerin [Nitrostat] 0.3 mg SL UD PRN PRN Reason: Chest Pain Omeprazole 20 mg PO DAILY Dicyclomine HCl 10 mg PO BID Acetaminophen [Tylenol Extra Strength] 2 tab PO Q4H PRN PRN Reason: Pain hydroCHLOROthiazide [Hydrochlorothiazide] 25 mg PO DAILY Oxycodone HCl/Acetaminophen [Oxycodone-Acetaminophen 5-325] 1 tab PO TID PRN PRN Reason: Pain Semaglutide [Ozempic] 2 mg SQ WEEKLY Pregabalin 50 mg [Lyrica 50MG] 100 mg PO BID Amlodipine Besylate [Norvasc] 10 mg PO DAILY Instructions: Apixaban, Cefuroxime, Diltiazem, Atrial fibrillation - Discharge instructions Additional Instructions: Keep a log of blood pressure and HR and take with you when you follow up with [facility]. You can buy probiotics and medication for diarrhea OTC. Please follow directions on box and do not exceed daily dosing. Follow up with: RENZO GONZALEZ FNP [NON-STAFF PHY W/O PRIVILEGES] - 12/17/24 1:15 pm ('S NURSE PRACTITIONER) LILIANA SANCHEZ MD [Primary Care Provider] - 12/11/24 10:20 am Forms: Discharge Instructions
[2024-12-09 11:59] VITALS: BP 114/70; PULSE 72; RESP 18; TEMP 96.9; O2SAT 96
== END 2024-12-09 12:28 | disposition home or self-care (01) ==
LOC: ED 11:47 → ICU 19:50 → UNDOADMOB 20:10 → ICU 20:10
PROVIDERS: ADMIT Internal Medicine; ATTEND Internal Medicine
DX: I48.20 Chronic atrial fibrillation, unspecified (principal); E11.9 Type 2 diabetes mellitus without complications; N39.0 Urinary tract infection, site not specified; F41.8 Other specified anxiety disorders; M06.9 Rheumatoid arthritis, unspecified; I25.10 Atherosclerotic heart disease of native coronary artery without angina pectoris; Z86.73 Personal history of transient ischemic attack (TIA), and cerebral infarction without residual deficits; E87.6 Hypokalemia; I10 Essential (primary) hypertension; E66.01 Morbid (severe) obesity due to excess calories; Z68.41 Body mass index [BMI] 40.0-44.9, adult; R19.7 Diarrhea, unspecified; E87.20 Acidosis, unspecified; E83.42 Hypomagnesemia; Z79.899 Other long term (current) drug therapy; E78.5 Hyperlipidemia, unspecified; I25.2 Old myocardial infarction
CPT/HCPCS: 0241U; 36415; 71046; 80053; 80307; 81001; 82947; 83036; 83605; 83735; 84132; 84443; 84484; 85025; 85027; 87040; 87077; 87086; 87186; 87493; 93005; 93268; 93306; 94640; 94762; 96374; 99291; G0378; Q3014; 99285; J0696; J1650; J1817; J2405; J3475; J7609; A9270-GY